=== PATIENT | male | born 1950 | race Caucasian/White ===

== ENCOUNTER 2023-08-02 14:35 | Emergency (ER) | payer MEDICARE ==
--- NOTE | 2023-08-02 15:20 | ED ---
Fall HPI - General Source: patient, family, RN notes reviewed Mode of arrival: wheelchair <Lashonda Singh - Last Filed: 08/02/23 15:16> - General Source: patient, RN notes reviewed Limitations: no limitations <Givoanny Gatica - Last Filed: 08/02/23 18:20> - General Chief Complaint: Fall Stated Complaint: fall Time Seen by Provider: 08/02/23 15:19 - History of Present Illness Initial Comments: Patient is 72-year-old male presented ER with chief complaint of a fall. Patient states he stood up from his couch and his legs gave out he states he hit the TV stand. Patient denies any head injury, loss of consciousness, blood thinner use. (Lashonda Singh) Patient is a pleasant 9-year-old male presenting to the emergency department following a fall. Incident occurred 2 days ago. Patient states he tripped and hit a TV stand. Patient has discomfort left ribs and left abdomen/flank region. No dyspnea. Patient also hurt his forearms and is worried about bruising of his forearms. (Giovanny Gatica) - Related Data Previous Rx's Medication Instructions Recorded Ketorolac [Toradol] 10 mg PO Q6HR PRN #15 tab 08/02/23 Allergies Allergy/AdvReac Type Severity Reaction Status Date / Time Penicillins AdvReac Unknown Verified 08/02/23 14:46 Childhood Review of Systems ROS Other: All systems not noted in ROS Statement are negative. <Lashonda Singh - Last Filed: 08/02/23 15:16> ROS Other: All systems not noted in ROS Statement are negative. Constitutional: Denies: fever Eyes: Denies: eye pain ENT: Denies: ear pain Respiratory: Denies: cough, dyspnea Gastrointestinal: Reports: as per HPI <Giovanny Gatica - Last Filed: 08/02/23 18:20> ROS Statement: Those systems with pertinent positive or pertinent negative responses have been documented in the HPI. Past Medical History Additional Past Medical History / Comment(s): chronic pain Past Surgical History: Heart Catheterization With Stent, Joint Replacement Smoking Status: Former smoker Past Alcohol Use History: None Reported Past Drug Use History: None Reported <Lashonda Singh - Last Filed: 08/02/23 15:16> General Exam Limitations: no limitations <Lashonda Singh - Last Filed: 08/02/23 15:16> Limitations: no limitations General appearance: alert, in no apparent distress Head exam: Present: atraumatic, normocephalic Eye exam: Present: normal appearance, PERRL Neck exam: Present: normal inspection. Absent: tenderness Respiratory exam: Present: wheezes (Patient states history of COPD), chest wall tenderness (Left lower lateral) Cardiovascular Exam: Present: regular rate, normal rhythm GI/Abdominal exam: Present: soft, tenderness (Mild tenderness left upper abdomen). Absent: distended Extremities exam: Present: normal inspection, full ROM. Absent: tenderness (No bony tenderness) Back exam: Present: tenderness (Left lateral flank). Absent: vertebral tenderness Neurological exam: Present: alert Psychiatric exam: Present: normal affect, normal mood Skin exam: Present: other (Ecchymosis left flank) <Giovanny Gatica - Last Filed: 08/02/23 18:20> - General Exam Comments Initial Comments: Visual Physical Exam Vital signs reviewed General: Well-appearing, nontoxic, no acute distress. Head: Normocephalic, atraumatic Eyes: PERRLA, EOMI ENT: Airway patent Chest: Nonlabored breathing Skin: No visual rash, normal skin tone, multiple contusions noted on bilateral upper extremities and left flank Neuro: Alert and oriented 3 Musculoskeletal: No gross abnormalities (Lashonda Singh) Course Vital Signs 08/02/23 14:42 Temperature 97.3 F L Pulse Rate 78 Respiratory 20 Rate Blood Pressure 112/78 O2 Sat by Pulse 92 L Oximetry Medical Decision Making <Lashonda Singh - Last Filed: 08/02/23 15:16> - Lab Data Result diagrams: 08/02/23 15:52 08/02/23 15:52 <Giovanny Gatica - Last Filed: 08/02/23 18:20> - Medical Decision Making I performed the quick note portion of the exam. Electronically signed by Lashonda Singh PA-C (Lashonda Singh) Was pt. sent in by a medical professional or institution ([facility], [employer] TECHNICIAN, urgent care, hospital, or jail...) When possible be specific @ -[No] Did you speak to anyone other than the patient for history (EMS, parent, family, police, friend...)? What history was obtained from this source @ -Family is present and helps provide history including incidental fall Did you review nursing and triage notes (agree or disagree)? Why? @ -[I reviewed and agree with nursing and triage notes] Were old charts reviewed (outside hosp., previous admission, EMS record, old EKG, old radiological studies, urgent care reports/EKG's, jail records)? Report findings @ -[No old charts were reviewed] Differential Diagnosis (chest pain, altered mental status, abdominal pain women, abdominal pain men, vaginal bleeding, weakness, fever, dyspnea, syncope, headache, dizziness, GI bleed, back pain, seizure, CVA, palpatations, mental health, musculoskeletal)? @ -Differential Musculoskeletal Muscular strain, contusion, ligament sprain, fracture, arthritis, septic arthritis, bursitis, cellulitis, muscle spasm, nerve compression, DVT, arterial occlusion, herpes zoster, electrolyte abnormality, tumor.... This is not meant to be in all inclusive list EKG interpreted by me (3pts min.). @ -[As above] X-rays interpreted by me (1pt min.). @ -Left rib and chest x-ray shows rib fractures left 5 through 8 no evidence of pneumothorax. CT interpreted by me (1pt min.). @ -CT abdomen and pelvis shows left rib fractures and tiny pneumothorax. Questionable pubic rami U/S interpreted by me (1pt. min.). @ -[None done] What testing was considered but not performed or refused? (CT, X-rays, U/S, labs)? Why? @ -[None] What meds were considered but not given or refused? Why? @ -[None] Did you discuss the management of the patient with other professionals (professionals i.e. , PA, [employer] TECHNICIAN, lab, RT, psych nurse, social services technician, network systems consultant, teacher, combatant diver officer, insurance case manager)? Give summary @ -Case was discussed with trauma surgeon Dr. Coronel who states patient can be discharged pain is controlled and follow-up. Was smoking cessation discussed for >3mins.? @ -[No] Was critical care preformed (if so, how long)? @ -[No] Were there social determinants of health that impacted care today? How? (Homelessness, low income, unemployed, alcoholism, drug addiction, tra nsportation, low edu. Level, literacy, decrease access to med. care, alf, rehab)? @ -[No] Was there de-escalation of care discussed even if they declined (Discuss DNR or withdrawal of care, Hospice)? DNR status @ -[No] What co-morbidities impacted this encounter? (DM, HTN, Smoking, COPD, CAD, Cancer, CVA, ARF, Chemo, Hep., AIDS, mental health diagnosis, sleep apnea, morbid obesity)? @ -[None] Was patient admitted / discharged? Hospital course, mention meds given and route, prescriptions, significant lab abnormalities, going to OR and other pertinent info. @ -Patient reevaluated and feeling much better. Patient is updated on results and plan. Patient is comfortable with discharge home. Undiagnosed new problem with uncertain prognosis? @ -[No] Drug Therapy requiring intensive monitoring for toxicity (Heparin, Nitro, Insulin, Cardizem)? @ -[No] Were any procedures done? @ -[No] Diagnosis/symptom? @ -Rib fractures, pneumothorax Acute, or Chronic, or Acute on Chronic? @ -Acute, acute Uncomplicated (without systemic symptoms) or Complicated (systemic symptoms)? @ -Rib fractures or complicated with a pneumothorax Side effects of treatment? @ -[No] Exacerbation, Progression, or Severe Exacerbation? @ -[No] Poses a threat to life or bodily function? How? (Chest pain, [place], [place], pneumonia, PE, COPD, DKA, ARF, appy, cholecystitis, CVA, Diverticulitis, Homicidal, Suicidal, threat to staff... and all critical care pts) @ -[No] (Giovanny Gatica) - Lab Data Lab Results 08/02/23 08/02/23 08/02/23 Range/Units 15:52 15:52 15:52 WBC 13.7 H (3.8-10.6) k/uL RBC 4.54 (4.30-5.90) m/uL Hgb 14.7 (13.0-17.5) gm/dL Hct 44.6 (39.0-53.0) % MCV 98.0 (80.0-100.0) fL MCH 32.4 (25.0-35.0) pg MCHC 33.0 (31.0-37.0) g/dL RDW 14.4 (11.5-15.5) % Plt Count 122 L (150-450) k/uL MPV 8.5 Neutrophils % 86 % Lymphocytes % 7 % Monocytes % 5 % Eosinophils % 1 % Basophils % 0 % Neutrophils # 11.7 H (1.3-7.7) k/uL Lymphocytes # 1.0 (1.0-4.8) k/uL Monocytes # 0.7 (0-1.0) k/uL Eosinophils # 0.1 (0-0.7) k/uL Basophils # 0.0 (0-0.2) k/uL PT 11.1 (10.0-12.5) sec INR 1.0 (<1.2) APTT 25.3 (22.0-30.0) sec Sodium 133 L (137-145) mmol/L Potassium 3.6 (3.5-5.1) mmol/L Chloride 91 L (98-107) mmol/L Carbon Dioxide 31 H (22-30) mmol/L Anion Gap 11 mmol/L BUN 36 H (9-20) mg/dL Creatinine 0.84 (0.66-1.25) mg/dL Est GFR (CKD-EPI)AfAm >90 (>60 ml/min/1.73 sqM) Est GFR (CKD-EPI)NonAf 89 (>60 ml/min/1.73 sqM) Glucose 110 H (74-99) mg/dL Calcium 9.1 (8.4-10.2) mg/dL Total Bilirubin 1.1 (0.2-1.3) mg/dL AST 33 (17-59) U/L ALT 14 (4-49) U/L Alkaline Phosphatase 80 (38-126) U/L Total Protein 7.8 (6.3-8.2) g/dL Albumin 4.3 (3.5-5.0) g/dL Amylase 43 (30-110) U/L Lipase 51 (23-300) U/L Disposition <Lashonda Singh - Last Filed: 08/02/23 15:16> Is patient prescribed a controlled substance at d/c from ED?: No Time of Disposition: 18:19 <Giovanny Gatica - Last Filed: 08/02/23 18:20> Clinical Impression: Rib fractures, Pneumothorax Disposition: HOME SELF-CARE Condition: Stable Instructions (If sedation given, give patient instructions): Rib Fracture (ED), Traumatic Pneumothorax (ED) Additional Instructions: Prescription sent to pharmacy. Please do follow-up with primary care physician and trauma surgeon Dr. Coronel in the next day or 2 for recheck. Return for any difficulty in breathing, increased pain, worsening symptoms or other concerns. Prescriptions: Ketorolac [Toradol] 10 mg PO Q6HR PRN #15 tab PRN Reason: Pain Referrals: Betito Zhang DO [Primary Care Provider] - 1-2 days Jasmyn Quinn MD [STAFF PHYSICIAN] - 1-2 days
[2023-08-02] MEDS ORDERED: MORPHINE SULFATE 4 MG/ML SYRINGE IVP STA (15:45)
[2023-08-02 16:04] LABS: Basophils % (A) 0 %; Eosinophils # (A) 0.1 k/uL (0-0.7); Eosinophils % (A) 1 %; HCT 44.6 % (39.0-53.0); HGB 14.7 gm/dL (13.0-17.5); Lymphocytes % (A) 7 %; MCH 32.4 pg (25.0-35.0); Mean Platelet Volume 8.5; Monocytes # (A) 0.7 k/uL (0-1.0); Monocytes % (A) 5 %; Neutrophils # (A) 11.7 k/uL (1.3-7.7); Neutrophils % (A) 86 %; Platelet Count 122 k/uL (150-450); RBC 4.54 m/uL (4.30-5.90); RDW 14.4 % (11.5-15.5); WBC 13.7 k/uL (3.8-10.6)
[2023-08-02 16:12] LABS: ALT 14 U/L (4-49); AST 33 U/L (17-59); African American GFR (CKD) >90 (>60 ml/min/1.73 sqM); Albumin 4.3 g/dL (3.5-5.0); Alkaline Phosphatase 80 U/L (38-126); Amylase 43 U/L (30-110); Anion Gap 11 mmol/L; Blood Urea Nitrogen 36 mg/dL (9-20); Calcium 9.1 mg/dL (8.4-10.2); Carbon Dioxide 31 mmol/L (22-30); Chloride 91 mmol/L (98-107); Glucose 110 mg/dL (74-99); Lipase 51 U/L (23-300); Non-African American GFR(CKD) 89 (>60 ml/min/1.73 sqM); Potassium 3.6 mmol/L (3.5-5.1); Sodium 133 mmol/L (137-145); Total Bilirubin 1.1 mg/dL (0.2-1.3); Total Protein 7.8 g/dL (6.3-8.2)
[2023-08-02 16:16] LABS: Partial Thromboplastin Time 25.3 sec (22.0-30.0); Prothrombin Time 11.1 sec (10.0-12.5)
--- NOTE | 2023-08-02 17:20 | XR ---
EXAMINATION TYPE: XR ribs LT w pa chest xray DATE OF EXAM: 08/02/2023 COMPARISON: None HISTORY: Fall, pain TECHNIQUE: Left RIBS 2 views supplemented with a frontal chest FINDINGS: There appears to be chronic elevation of the left diaphragm. Family displaced rib fractures along the posterior lateral fifth, sixth, seventh ribs. Anterior seven th and eighth rib fractures are evident. No pneumothorax is evident. IMPRESSION: 1. Fractures of the ribs. No pneumothorax identified
--- NOTE | 2023-08-02 18:03 | CT ---
EXAMINATION TYPE: CT abdomen pelvis w con DATE OF EXAM: 08/02/2023 COMPARISON: None INDICATION: left sided abdominal pain following fall. DLP: 572.3 mGycm, Automated exposure control for dose reduction was used. CONTRAST: 100ml mL of Isovue 300. Study performed without Oral Contrast TECHNIQUE: Axial images were obtained from above the diaphragm to the pubic rami in the axial plane a t 5 mm thick sections. Reconstructed images are reviewed on the computer in the coronal plane. FINDINGS: Limited CT sections are obtained the lung bases. There is a small pneumothorax. There is elevation o f the left diaphragm with loops of bowel present.. 6, 7 and eighth lateral to anterior rib fractures are evident at the level of pneumothorax. CT ABDOMEN: No pneumoperitoneum. Liver: Normal Spleen: Normal Pancreas: Normal no laceration evident. Adrenal glands: The adrenal glands are normal. Gallbladder: Normal Kidneys: No masses are evident. No hydronephrosis is present. No cysts are present. Delayed images were obtained through the kidneys, which remain unremarkable. Aorta: Vascular calcification is within the aorta. There is a prior aortic aneurysm. Aortoiliac sten ting is evident. 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 Inferior vena cava: Normal. CT PELVIS: Right hip prosthesis is present. A fracture of the lateral pubic ramus, example image 201 image 74 Loops of bowel within the abdomen and pelvis are normal. There are some fluid-filled small bowel loop s within the pelvis. There are loops of bowel which are incompletely distended or lack oral contra st limiting their evaluation. Appendix: Normal as visualized Urinary bladder: Normal. Genitourinary structures: Prostate is poorly visualized due to beam hardening artifact from the right hip prosthesis Osseous structures: No suspicious lytic or sclerotic lesions. Fracture of the posterior lateral right pubic ramus and left sixth through eighth rib fractures discussed above. IMPRESSION: 1. Left rib fractures 6 7 and a the with a small pneumothorax adjacent.. Report was called to the ER by Dr. Lo at the time of interpretation. 2. No acute intra-abdominal changes. 3. Fracture of the posterior lateral right pubic ramus
[2023-08-02] MEDS ORDERED: ACET/COD 300 MG/30 MG STARTER PACK 6 TAB BTL PO STA (18:15)
[2023-08-02 18:28] VITALS: BP 119/72; PULSE 61; RESP 16; TEMP 97.4
== END 2023-08-02 19:24 | disposition home or self-care (01) ==
LOC: EC 14:35
DX: S22.42XA Multiple fractures of ribs, left side, initial encounter for closed fracture (principal); S27.0XXA Traumatic pneumothorax, initial encounter; Z88.0 Allergy status to penicillin; Z87.891 Personal history of nicotine dependence; W18.09XA Striking against other object with subsequent fall, initial encounter
CPT/HCPCS: 36415; 80053; 82150; 83690; 85025; 85610; 85730; 71101; 74177; 99284; 96374; J2270; Q9967

== ENCOUNTER 2024-02-10 12:47 | Inpatient (IN) | payer MEDICARE ==
--- NOTE | 2024-02-10 13:04 | ED ---
General Adult HPI - General Stated complaint: hypotension Time Seen by Provider: 02/10/24 12:49 - History of Present Illness Initial comments: Dictation was produced using [employer] dictation software. please excuse any grammatical, word or spelling errors. Chief Complaint: 73-year-old male with past medical history of lung cancer presents with abdominal pain History of Present Illness: Patient 73-year-old male presents to the emergency department with abdominal pain. Patient states he has had abdominal pain for the last 2 to 3 days. Has not had a bowel movement approximately 4 days. States the pain is localized to his supraumbilical epigastric area. Nonradiating. Not associated with chest pain. No diaphoresis. No nausea. Denies any fever, chills or night sweats. He has history of lung cancer. Brought in by EMS. EMS states that his oxygen was slightly low and he was given a breathing treatment improvement. He wears home O2. Patient denies any acute dyspnea outside of his baseline dyspnea. Patient also allegedly had slightly lo w blood pressure was given IV fluids with improvement. The ROS documented in this emergency department record has been reviewed and confirmed by me. Those systems with pertinent positive or negative responses have been documented in the HPI. All other systems are other negative and/or noncontributory. - Related Data Home Medications Medication Instructions Recorded Confirmed Albuterol Sulfate [Albuterol 1 puff PO RT-Q4H PRN 02/10/24 02/10/24 Sulfate Hfa] Fluticasone/Umeclidin/Vilanter 1 puff INHALATION RT-DAILY 02/10/24 02/10/24 [Trelegy Ellipta 200-62.5-25] Furosemide [Lasix] 20 mg PO BID 02/10/24 02/10/24 Gabapentin 600 mg PO TID 02/10/24 02/10/24 HYDROcodone/APAP 7.5-325MG [[place] 1 tab PO Q6HR PRN 02/10/24 02/10/24 7.5-325] Pantoprazole [Protonix] 40 mg PO DAILY 02/10/24 02/10/24 QUEtiapine [SEROquel] 25 mg PO HS 02/10/24 02/10/24 Sertraline [Zoloft] 50 mg PO DAILY 07/22/24 07/22/24 Allergies Allergy/AdvReac Type Severity Reaction Status Date / Time Penicillins AdvReac Unknown Verified 02/10/24 13:04 Childhood Review of Systems ROS Statement: Those systems with pertinent positive or pertinent negative responses have been documented in the HPI. ROS Other: All systems not noted in ROS Statement are negative. Past Medical History Additional Past Medical History / Comment(s): chronic pain Past Surgical History: Heart Catheterization With Stent, Joint Replacement Smoking Status: Former smoker Past Alcohol Use History: None Reported Past Drug Use History: None Reported General Exam - General Exam Comments Initial Comments: PHYSICAL EXAM: General Impression: Alert and oriented x3, not in acute distress HEENT: Normocephalic atraumatic, extra-ocular movements intact, pupils equal and reactive to light bilaterally, mucous membranes moist. Cardiovascular: Heart regular rate and rhythm Chest: Able to complete full sentences, no retractions, no tachypnea Abdomen: abdomen soft, tenderness to the supraumbilical epigastrium, distention of the abdomen, no organomegaly Musculoskeletal: Pulses present and equal in all extremities, no peripheral edema Motor: no focal deficits noted Neurological: CN II-XII grossly intact, no focal motor or sensory deficits noted Skin: Intact with no visualized rashes Psych: Normal affect and mood Course Vital Signs 02/10/24 02/10/24 02/10/24 12:49 13:27 14:25 Temperature 98.7 F 98.1 F Pulse Rate 100 100 97 Respiratory 20 18 20 Rate Blood Pressure 76/61 86/67 98/76 O2 Sat by Pulse 88 L 92 L 88 L Oximetry - Reevaluation(s) Reevaluation #1: 02/10/24 13:05 EKG showed concerning findings for cardiac ischemia. There is no old EKG for comparison. At the bedside patient does not have any ACS type symptoms. He has reproducible palpatory abdominal tenderness to his mid abdomen. Reevaluation #2: 02/10/24 14:12 Initial page out to cardiology was at 1:10 PM. I did get in touch with cardiology at 152. He did come down immediately to evaluate the patient. Dr. Martinez evaluated the patient and recommended that patient be taken to the [facility] if his CT is unremarkable. Reevaluation #3: 02/10/24 14:33 CT of the abdomen pelvis was reviewed along with cardiology at approximately 2:20 PM. Radiologist said that there is significant Case was discussed with radiologist.bowel obstruction. I did revisit the case with Dr. Martinez at approximately 2:25 PM states that patient not a good candidate for cardiac cath eterization at this time and that he does not have any active ACS symptoms at the bedside. They will delay catheterization in the meantime. Stat echocardiogram ordered. Patient given heparin, aspirin and started on antibiotics for questionable bilateral lower lobe pneumonia. Reevaluation #4: 02/10/24 15:04 Case discussed with general surgery, Dr. Vu requested NG tube be placed and that STEMI will take precedence over any sort of abdominal surgery. EKG Findings - EKG Comments: EKG Findings:: My EKG interpretation: Ventricular rate 110, sinus tachycardia, right bundle branch block,. 134, cures 122, QTc 407. ST elevations in the septal precordial leads and inferior leads. No obvious reciprocal depressions.. No OK prolongation, no QTC prolongation. Medical Decision Making - Medical Decision Making Was pt. sent in by a medical professional or institution (, PA, CERTIFIED SCRUB TECH, urgent care, hospital, or snf...) When possible be specific @ -yes Did you speak to anyone other than the patient for history (EMS, parent, family, police, friend...)? What history was obtained from this source @ -Case discussed with EMS as described above Did you review nursing and triage notes (agree or disagree)? Why? @ -I reviewed and agree with nursing and triage notes Were old charts reviewed (outside hosp., previous admission, EMS record, old EKG, old radiological studies, urgent care reports/EKG's, snf records)? Report findings @ -No old charts were reviewed Differential Diagnosis (chest pain, altered mental status, abdominal pain women, abdominal pain men, vaginal bleeding, musculoskeletal, weakness, fever, dyspnea, syncope, headache, dizziness, GI bleed, back pain, seizure, CVA, pal patations, mental health)? @ -Differential Abdominal Pain Men: Appendicitis, cholecystitis, diverticulosis, ischemic bowel, pancreatitis, hepatitis, UTI, gastroenteritis, AAA, incarcerated hernia, bowel obstruction, constipation, inflammatory bowel, hepatitis, peptic ulcer disease, splenic infarction, perforated viscus, testicular torsion, this is not meant to be an all-inclusive list EKG interpreted by me (3pts min.). @ -See above. No EKG for comparison. EKG consistent with ST segment elevation IN X-rays interpreted by me (1pt min.). @ -None done CT interpreted by me (1pt min.). @ -CT scan of the abdomen pelvis shows bowel obstruction and possible bilateral lower lobe pneumonia. U/S interpreted by me (1pt. min.). @ -None done What testing was considered but not performed or refused? (CT, X-rays, U/S, labs)? Why? @ -None What meds were considered but not given or refused? Why? @ -None Was smoking cessation discussed for >3mins.? @ -No Were there social determinants of health that impacted care today? How? (Homelessness, low income, unemployed, alcoholism, drug addiction, transportation, low edu. Level, literacy, decrease access to med. care, nursing home, rehab)? @ -No Was there de-escalation of care discussed even if they declined (Discuss DNR or withdrawal of care, Hospice)? DNR status @ -No What co-morbidities impacted this encounter? (DM, HTN, Smoking, COPD, CAD, Canc er, CVA, ARF, Chemo, Hep., AIDS, mental health diagnosis, sleep apnea, morbid obesity)? @ -Lung cancer, vascular disease Was patient admitted / discharged? Hospital course, mention meds given and rou te, prescriptions, significant lab abnormalities, going to OR and other pertinent info. @ -73-year-old male with chief complaint of abdominal pain. He arrived via EMS from home. Patient denies any ACS type symptoms. He has reproducible palpatory abdominal pain. His abdomen is distended. EKG shows findings concerning for ST segment elevation IN. Vital signs show soft blood pressure initially 76/61 however improved with IV fluids to 98/76. Laboratory evaluation obtained. No leukocytosis. Hemoglobin 11.9. Coag panel is normal. Metabolic panel shows hyponatremia 129. Troponin is elevated to 56.8. Case was discussed with cardiology as described above. Pending discussion with general surgery. Patient be admitted to the ICU for intensive care monitoring. Patient given aspirin, antibiotics and heparin. Echocardiogram ordered. Did you discuss the management of the patient with other professionals (professionals i.e. , PA, CERTIFIED SCRUB TECH, lab, RT, psych nurse, social media intern, chief of vital statistics, t eacher, navy airspace officer, behavioral health case manager)? Give summary @ -See above Was critical care preformed (if so, how long)? @ -Yes, 77 minutes Undiagnosed new problem with uncertain prognosis? @ -No Drug Therapy requiring intensive monitoring for toxicity (Heparin, Nitro, Insulin, Cardizem)? @ -No Were any procedures done? @ -No Diagnosis/symptom? Acute, or Chronic, or Acute on Chronic? Uncomplicated ( without systemic symptoms) or Complicated (systemic symptoms)? @ -ST segment elevation IN, bowel obstruction Side effects of treatment? @ -No Exacerbation, Progression, or Severe Exacerbation? @ -No Poses a threat to life or bodily function? How? (Chest pain, USA, IN, pneumonia, PE, COPD, DKA, ARF, appy, cholecystitis, CVA, Diverticulitis, Homicidal, Suicidal, threat to staff... and all critical care pts) @ -yes - Lab Data Result diagrams: 02/10/24 13:17 02/10/24 13:17 Lab Results 02/10/24 02/10/24 02/10/24 Range/Units 13:17 13:17 13:17 WBC 7.0 (3.8-10.6) k/uL RBC 3.73 L (4.30-5.90) m/uL Hgb 11.9 L (13.0-17.5) gm/dL Hct 37.0 L (39.0-53.0) % MCV 99.3 (80.0-100.0) fL MCH 32.0 (25.0-35.0) pg MCHC 32.2 (31.0-37.0) g/dL RDW 17.6 H (11.5-15.5) % Plt Count 560 H (150-450) k/uL MPV 7.2 Neutrophils % 84 % Lymphocytes % 6 % Monocytes % 9 % Eosinophils % 0 % Basophils % 0 % Neutrophils # 5.9 (1.3-7.7) k/uL Lymphocytes # 0.4 L (1.0-4.8) k/uL Monocytes # 0.6 (0-1.0) k/uL Eosinophils # 0.0 (0-0.7) k/uL Basophils # 0.0 (0-0.2) k/uL Hypochromasia Slight Anisocytosis Slight Macrocytosis Slight PT (10.0-12.5) sec INR (<1.2) APTT (22.0-30.0) sec Sodium 129 L (137-145) mmol/L Potassium 5.5 H (3.5-5.1) mmol/L Chloride 89 L (98-107) mmol/L Carbon Dioxide 36 H (22-30) mmol/L Anion Gap 4 mmol/L BUN 48 H (9-20) mg/dL Creatinine 1.18 (0.66-1.25) mg/dL Est GFR (CKD-EPI)AfAm 71 (>60 ml/min/1.73 sqM) Est GFR (CKD-EPI)NonAf 62 (>60 ml/min/1.73 sqM) Glucose 152 H (74-99) mg/dL Calcium 9.1 (8.4-10.2) mg/dL Total Bilirubin 1.0 (0.2-1.3) mg/dL AST 128 H (17-59) U/L ALT 39 (4-49) U/L Alkaline Phosphatase 71 (38-126) U/L Troponin I 56.800 H* (0.000-0.034) ng/mL Total Protein 6.0 L (6.3-8.2) g/dL Albumin 3.4 L (3.5-5.0) g/dL Lipase 104 (23-300) U/L 02/10/24 Range/Units 13:17 WBC (3.8-10.6) k/uL RBC (4.30-5.90) m/uL Hgb (13.0-17.5) gm/dL Hct (39.0-53.0) % MCV (80.0-100.0) fL MCH (25.0-35.0) pg MCHC (31.0-37.0) g/dL RDW (11.5-15.5) % Plt Count (150-450) k/uL MPV Neutrophils % % Lymphocytes % % Monocytes % % Eosinophils % % Basophils % % Neutrophils # (1.3-7.7) k/uL Lymphocytes # (1.0-4.8) k/uL Monocytes # (0-1.0) k/uL Eosinophils # (0-0.7) k/uL Basophils # (0-0.2) k/uL Hypochromasia Anisocytosis Macrocytosis PT 11.6 (10.0-12.5) sec INR 1.1 (<1.2) APTT 23.7 (22.0-30.0) sec Sodium (137-145) mmol/L Potassium (3.5-5.1) mmol/L Chloride (98-107) mmol/L Carbon Dioxide (22-30) mmol/L Anion Gap mmol/L BUN (9-20) mg/dL Creatinine (0.66-1.25) mg/dL Est GFR (CKD-EPI)AfAm (>60 ml/min/1.73 sqM) Est GFR (CKD-EPI)NonAf (>60 ml/min/1.73 sqM) Glucose (74-99) mg/dL Calcium (8.4-10.2) mg/dL Total Bilirubin (0.2-1.3) mg/dL AST (17-59) U/L ALT (4-49) U/L Alkaline Phosphatase (38-126) U/L Troponin I (0.000-0.034) ng/mL Total Protein (6.3-8.2) g/dL Albumin (3.5-5.0) g/dL Lipase (23-300) U/L Disposition Clinical Impression: STEMI (ST elevation myocardial infarction), Bowel obstruction Disposition: ADMITTED IP TO THIS [facility] Condition: Critical Decision Time: 14:45
[2024-02-10] MEDS: SODIUM CHLORIDE 0.9% 500 ML 500 ML IV STA (13:23)
[2024-02-10] MEDS: fentaNYL (PF) 50 MCG/ML 2 ML AMP IVP STA ×2 (13:24→15:10)
[2024-02-10 13:36] LABS: ALT 39 U/L (4-49); AST 128 U/L (17-59); African American GFR (CKD) 71 (>60 ml/min/1.73 sqM); Albumin 3.4 g/dL (3.5-5.0); Alkaline Phosphatase 71 U/L (38-126); Anion Gap 4 mmol/L; Blood Urea Nitrogen 48 mg/dL (9-20); Calcium 9.1 mg/dL (8.4-10.2); Carbon Dioxide 36 mmol/L (22-30); Chloride 89 mmol/L (98-107); Glucose 152 mg/dL (74-99); Lipase 104 U/L (23-300); Non-African American GFR(CKD) 62 (>60 ml/min/1.73 sqM); Potassium 5.5 mmol/L (3.5-5.1); Sodium 129 mmol/L (137-145)
[2024-02-10 13:38] LABS: INR 1.1 (<1.2); Partial Thromboplastin Time 23.7 sec (22.0-30.0); Prothrombin Time 11.6 sec (10.0-12.5)
[2024-02-10 13:46] LABS: Anisocytosis Slight; Basophils % (A) 0 %; Eosinophils % (A) 0 %; HGB 11.9 gm/dL (13.0-17.5); Hypochromasia Slight; Lymphocytes # (A) 0.4 k/uL (1.0-4.8); Lymphocytes % (A) 6 %; MCHC 32.2 g/dL (31.0-37.0); MCV 99.3 fL (80.0-100.0); Macrocytosis Slight; Mean Platelet Volume 7.2; Monocytes # (A) 0.6 k/uL (0-1.0); Monocytes % (A) 9 %; Neutrophils # (A) 5.9 k/uL (1.3-7.7); Neutrophils % (A) 84 %; Platelet Count 560 k/uL (150-450); RBC 3.73 m/uL (4.30-5.90); RDW 17.6 % (11.5-15.5)
[2024-02-10] MEDS ORDERED: HEPARIN SODIUM 1,000 UN/ML (10ML VL) IV PRN (14:13)
--- NOTE | 2024-02-10 14:31 | CT ---
EXAMINATION TYPE: CT abdomen pelvis w con DATE OF EXAM: 02/10/2024 COMPARISON: 08/02/2023 HISTORY: Abdominal pain CT DLP: 1032.5 mGycm Automated exposure control for dose reduction was used. TECHNIQUE: Helical acquisition of images was performed from the lung bases through the pelvis. CONTRAST: Performed without Oral Contrast and with IV Contrast, patient injected with 100 ml mL of Isovue 300. FINDINGS: There are bilateral lower lobes partially consolidated opacities with tiny right pleural effusion and [id number] left pleural effusion. There are no gallstones, wall thickening or pericholecystic fluid. There is no biliary ductal dilatat ion. There is no focal mass or organomegaly involving the liver, pancreas, spleen limits. The pancreas is moderately atrophic. There is no solid renal mass or hydronephrosis and there is homogeneous contrast enhancement of the r enal parenchyma. There is an aortic stent graft with no evidence of an endoleak. The stomach and small bowel loops are markedly dilated throughout the abdomen consistent with a dista l small bowel obstruction, etiology and transition point is uncertain but appears to be in the dista l right lower quadrant. There is no free intraperitoneal air or fluid. There is no free intraperitoneal air or fluid. There is no definite pelvic mass or adenopathy. There is artifact from right hip prosthesis. There porter s been prior fixation of right hemipelvis fractures. IMPRESSION: 1. Bilateral lower lobe airspace infiltrates and pleural effusion as described above, left greater th an right. 2. Marked distal small bowel obstruction
[2024-02-10] MEDS ORDERED: NALOXONE 0.4 MG/ML 1 ML VIAL IV PRN (14:41)
[2024-02-10] MEDS: CEFEPIME 2 GM in SODIUM CHLORIDE 0.9% 100 ML IVPB STA (14:42)
[2024-02-10] MEDS: ASPIRIN 81 MG PO STA (15:29)
[2024-02-10] MEDS: HEPARIN SOD,PORK IN 0.45% NACL 25,000 UNIT in 0.45% NACL 1 250ML.BAG IV SCH (15:31)
[2024-02-10] MEDS: HEPARIN SODIUM 1,000 UN/ML (10ML VL) IV ONE (15:34)
[2024-02-10] MEDS: SODIUM CHLORIDE 0.9% 1,000 ML IV STA (15:35)
--- NOTE | 2024-02-10 16:08 | P.GSCN ---
History of Present Illness Consult date: 02/10/24 History of present illness: CHIEF COMPLAINT: Abdominal pain HISTORY OF PRESENT ILLNESS: This is a 73-year-old male who presented the hospital with complaints of abdominal pain for about 2 to 3 days. He has had no bowel movement for 4 days. No nausea or vomiting reported. He does have abdominal distention. He does have a known history of coronary artery disease with cardiac stents and is on home oxygen. Patient had a CT scan abdomen and pelvis that reported marked distal small bowel obstruction. Patient also has elevated troponin and is currently on IV heparin drip. Followed by cardiology. Patient seen and examined with Dr. Vu PAST MEDICAL HISTORY: Coronary disease, chronic pain PAST SURGICAL HISTORY: Heart catheterization with stent, joint replacement MEDICATIONS: See below ALLERGIES: See below SOCIAL HISTORY: No illicit drug use. None reported REVIEW OF SYSTEMS: CONSTITUTIONAL: Denies fever or chills. HEENT: Denies blurred vision, vision changes, or eye pain. Denies hemoptysis CARDIOVASCULAR: Denies chest pain or pressure. RESPIRATORY: No shortness of breath. GASTROINTESTINAL: See HPI for pertinent findings HEMATOLOGIC: Denies bleeding disorders. GENITOURINARY: Denies any blood in urine or increased urinary frequency. SKIN: Denies pruitis. Denies rash. PHYSICAL EXAM: VITAL SIGNS: Reviewed GENERAL: Malnourished. No acute distress. HEENT: No sclera icterus. Extraocular movements grossly intact. Moist buccal mucosa. Head is atraumatic, normocephalic. No nasal drainage. ABDOMEN: Distended. Diffuse tenderness NEUROLOGIC: Alert and oriented. Cranial nerves II through XII grossly intact. LABORATORY DATA: WBC 7.0 Hgb 11.9 platelets 560 INR 1.1 Sodium 129 potassium is 5.5 creatinine 1.18 Troponin 56 Albumin 3.4 IMAGING: CT scan abdomen pelvis reports bilateral lower lobe airspace infiltrates and pleural effusion left greater than right. Marked distal small bowel obstruction. Stomach and small bowel loops are markedly dilated throughout the abdomen consistent with a distal small bowel obstruction. Transition point is uncertain but appears to be in the distal right lower quadrant. ASSESSMENT: 1. Small bowel obstruction with acute gastric distention 2. Elevated troponin 3. Hyponatremia and hyperkalemia PLAN: -Place NG tube for decompression -Keep patient n.p.o. -Recommend correction of electrolytes -Recommend cardiac eval for elevated troponin. Dr. Vu did discuss case with cardiology -May need surgical intervention for bowel obstruction later. No acute or emergent need for surgery for small bowel obstruction at this time Thank you for this consultation Physician In Store Marketer note has been reviewed by physician. Signing provider agrees with the documented findings, assessment, and plan of care. Past Medical History Additional Past Medical History / Comment(s): chronic pain Past Surgical History: Heart Catheterization With Stent, Joint Replacement Smoking Status: Former smoker Past Alcohol Use History: None Reported Past Drug Use History: None Reported Medications and Allergies Home Medications Medication Instructions Recorded Confirmed Type Albuterol Sulfate [Albuterol 1 puff PO RT-Q4H PRN 02/10/24 02/10/24 History Sulfate Hfa] Fluticasone/Umeclidin/Vilanter 1 puff INHALATION RT-DAILY 02/10/24 02/10/24 History [Trelegy Ellipta 200-62.5-25] Furosemide [Lasix] 20 mg PO BID 02/10/24 02/10/24 History Gabapentin 600 mg PO TID 02/10/24 02/10/24 History HYDROcodone/APAP 7.5-325MG [[place] 1 tab PO Q6HR PRN 02/10/24 02/10/24 History 7.5-325] Pantoprazole [Protonix] 40 mg PO DAILY 02/10/24 02/10/24 History QUEtiapine [SEROquel] 25 mg PO HS 02/10/24 02/10/24 History Sertraline [Zoloft] 50 mg PO DAILY 02/10/24 02/10/24 History Allergies Allergy/AdvReac Type Severity Reaction Status Date / Time Penicillins AdvReac Unknown Verified 02/10/24 13:04 Childhood Surgical - Exam Vital Signs Temp Pulse Resp BP Pulse Ox 98.7 F 100 20 76/61 88 L 02/10/24 12:49 02/10/24 12:49 02/10/24 12:49 02/10/24 12:49 02/10/24 12:49 Results - Labs 02/10/24 13:17 02/10/24 13:17 Abnormal Lab Results - Last 24 Hours (Table) 02/10/24 02/10/24 02/10/24 Range/Units 13:17 13:17 13:17 RBC 3.73 L (4.30-5.90) m/uL Hgb 11.9 L (13.0-17.5) gm/dL Hct 37.0 L (39.0-53.0) % RDW 17.6 H (11.5-15.5) % Plt Count 560 H (150-450) k/uL Lymphocytes # 0.4 L (1.0-4.8) k/uL Sodium 129 L (137-145) mmol/L Potassium 5.5 H (3.5-5.1) mmol/L Chloride 89 L (98-107) mmol/L Carbon Dioxide 36 H (22-30) mmol/L BUN 48 H (9-20) mg/dL Glucose 152 H (74-99) mg/dL AST 128 H (17-59) U/L Troponin I 56.800 H* (0.000-0.034) ng/mL Total Protein 6.0 L (6.3-8.2) g/dL Albumin 3.4 L (3.5-5.0) g/dL Diabetes panel 02/10/24 Range/Units 13:17 Sodium 129 L (137-145) mmol/L Potassium 5.5 H (3.5-5.1) mmol/L Chloride 89 L (98-107) mmol/L Carbon Dioxide 36 H (22-30) mmol/L BUN 48 H (9-20) mg/dL Creatinine 1.18 (0.66-1.25) mg/dL Glucose 152 H (74-99) mg/dL Calcium 9.1 (8.4-10.2) mg/dL AST 128 H (17-59) U/L ALT 39 (4-49) U/L Alkaline Phosphatase 71 (38-126) U/L Total Protein 6.0 L (6.3-8.2) g/dL Albumin 3.4 L (3.5-5.0) g/dL Calcium panel 02/10/24 Range/Units 13:17 Calcium 9.1 (8.4-10.2) mg/dL Albumin 3.4 L (3.5-5.0) g/dL Pituitary panel 02/10/24 Range/Units 13:17 Sodium 129 L (137-145) mmol/L Potassium 5.5 H (3.5-5.1) mmol/L Chloride 89 L (98-107) mmol/L Carbon Dioxide 36 H (22-30) mmol/L BUN 48 H (9-20) mg/dL Creatinine 1.18 (0.66-1.25) mg/dL Glucose 152 H (74-99) mg/dL Calcium 9.1 (8.4-10.2) mg/dL Adrenal panel 02/10/24 Range/Units 13:17 Sodium 129 L (137-145) mmol/L Potassium 5.5 H (3.5-5.1) mmol/L Chloride 89 L (98-107) mmol/L Carbon Dioxide 36 H (22-30) mmol/L BUN 48 H (9-20) mg/dL Creatinine 1.18 (0.66-1.25) mg/dL Glucose 152 H (74-99) mg/dL Calcium 9.1 (8.4-10.2) mg/dL Total Bilirubin 1.0 (0.2-1.3) mg/dL AST 128 H (17-59) U/L ALT 39 (4-49) U/L Alkaline Phosphatase 71 (38-126) U/L Total Protein 6.0 L (6.3-8.2) g/dL Albumin 3.4 L (3.5-5.0) g/dL
[2024-02-10] MEDS: BENZOCAINE SPRAY 1 CAN MUCOUS MEM PRN (16:16)
[2024-02-10] MEDS: ASPIRIN 300 MG SUPP RECTAL ONE (16:21)
--- NOTE | 2024-02-10 16:25 | XR ---
EXAMINATION TYPE: XR chest 1V confirm line plcmt DATE OF EXAM: 02/10/2024 4:19 PM CLINICAL INDICATION:Male, 73 years old with history of NG tube placement; H COMPARISON: CT same day TECHNIQUE: XR chest 1V confirm line plcmt Frontal view of the chest. FINDINGS: Lungs/Pleura: There is no evidence of pleural effusion, focal consolidation, or pneumothorax. Pulmonary vascularity: Unremarkable. Heart/mediastinum: Cardiomediastinal silhouette is unremarkable. Musculoskeletal: No acute osseous pathology. Other findings: Gaseous distention of stomach and bowel in the upper abdomen. Lines/Tubes: Nasogastric tube with its distal tip and side-port projecting under the diaphragm. [id number]-[id number] projecting over the right hemithorax with distal tip at the cavoatrial junction. IMPRESSION: 1. Nasogastric tube in appropriate position. 2. Elevated left diaphragm with gaseous distention of bowel and colon.
--- NOTE | 2024-02-10 16:51 | CA ---
Transthoracic Echo Report Name: Milad Enciso Age: 73 Gender: M : 1950 Exam Date: 02/10/2024 14:50 Exam Location: [facility] Ht (in): 67 Wt (lb): 130 Ordering Physician: Ash Aguirre DO Attending/Referring Phys: [id number], Timothy Spindle Setter Niharika Germain, CHRISTINE Procedure CPT: Indications: stemi Cardiac Hx: limited study Technical Quality: Fair Contrast 1: Total Dose (mL): Contrast 2: Total Dose (mL): MEASUREMENTS (Male / Female) Normal Values 2D ECHO LV Diastolic Volume MOD BP 71.2 cm??? 67 - 155 / 56 - 104 cm??? LV Systolic Volume MOD BP 50.4 cm??? 22 - 58 / 19 - 49 cm??? LV Ejection Fraction MOD BP 29.3 % >= 55 % LV Cardiac Index MOD BP 1276.1 cm???/min???m??? LV Diastolic Volume MOD 4C 82.0 cm??? LV Systolic Volume MOD 4C 55.0 cm??? LV Ejection Fraction MOD 4C 32.9 % LV Cardiac Index MOD 4C 1652.0 cm???/min???m??? LV Diastolic Length 4C 8.9 cm LV Systolic Length 4C 8.8 cm LV Diastolic Volume MOD 2C 56.9 cm??? LV Systolic Volume MOD 2C 39.5 cm??? LV Ejection Fraction MOD 2C 30.6 % LV Cardiac Index MOD 2C 1066.9 cm???/min???m??? LV Diastolic Length 2C 8.0 cm LV Systolic Length 2C 7.4 cm DOPPLER TR Peak Velocity 240.5 cm/s TR Peak Gradient 23.1 mmHg Right Ventricular Systolic Press 28.1 mmHg FINDINGS Left Ventricle Left ventricular ejection fraction is estimated at 15-20 %. Severely decreased left ventricular ejection fraction. Right Ventricle Generalized right ventricular hypokinesis. Right Atrium No right atrial thrombus or mass seen. Left Atrium No left atrial thrombus or mass present. Mitral Valve Structurally normal mitral valve. No mitral stenosis, regurgitation or prolapse. Aortic Valve Trileaflet aortic valve. No aortic valve stenosis or regurgitation. Tricuspid Valve Structurally normal tricuspid valve. Mild tricuspid regurgitation. Pulmonic Valve Pulmonic valve not well visualized. Pericardium No pericardial effusion. Aorta CONCLUSIONS Severe LV systolic dysfunction Hypokinesis involving anterior wall and anteroseptal Previewed by: Dr. Arturo Herbert MD (Electronically Signed) Final Date: 10 February 2024 16:50
[2024-02-10] MEDS ORDERED: ALBUTEROL HFA INHALER INHALATION PRN (16:54)
--- NOTE | 2024-02-10 17:01 | P.HPIM ---
History of Present Illness H&P Date: 02/10/24 Chief Complaint: Abdominal pain 73-year-old male with medical history of lung cancer with Mediport currently on chemotherapy, COPD with chronic respiratory failure requiring 3 L of nasal cannula, severe protein calorie malnutrition with cachexia, presented for evaluation of abdominal pain. Patient tells me that he started having abdominal pain which was sharp in nature and predominantly in the periumbilical area last . He has not had a significant stool since that time, and is only been able to urinate in small quantities, which he describes as "dribbles." He has not been able to keep anything down in terms of food or water. Otherwise, he denies fevers, chills, chest pain, palpitations, syncope. He also reports increased dyspnea at rest and had to increase his oxygen requirement from 3 to 4 L at home. In the emergency room, patient was afebrile, 98/76, heart rate 97, 88% on 4 L of nasal cannula. CBC demonstrated mild anemia to 11.9, thrombocytosis to 560. Basic metabolic panel significant for hyponatremia to 129, hyperkalemia 5.5, chloride of 89, BUN of 48, creatinine of 1.18. Liver function test is significant for AST of 128, ALT of 39, albumin is 3.4, and is likely hemoconcentrated. Troponin was completed and showed a value of 56.8. EKG demonstrated findings of sinus tachycardia with ST elevations in inferior and anterior leads. Chest x-ray demonstrates findings of hyperinflation, no acute cardiopulmonary pathology. Abdomen/pelvis CT demonstrated findings of small bowel obstruction. All Systems reviewed and pertinent positives and negatives noted in HPI, all other symptoms are negative Gen: In moderate distress, ill-appearing cachectic elderly man HEENT: normocephalic, atraumatic, hearing acuity is intant, mucous membranes moist CVS: perfusing all extremities well, no pitting edema, tachycardic without appreciable murmurs Respiratory: symmetric chest expansion, no accessory muscle use, diminished breath sounds GI: Distended, tender to palpation especially at the umbilicus : no suprapubic tenderness, no CVA tenderness MSK/Derm: no rashes, cyanosis Neuro: CN II-XII intact, no motor weakness, Psych: cooperative, euthymic mood, judgment and insight is intact Labs and imaging as above Assessment/plan: Small bowel obstruction -Patient was admitted as an inpatient to the intensive care unit with telemetry -Pulmonology was consulted -NG tube was placed -General surgery was consulted -Pain control as needed with morphine as needed -Initiate zosyn empirically with low threshold for discontinuation Myocardial infarction with diffuse ST elevations on EKG and elevated troponin -Continue to trend troponins -Cardiology consult -Patient received aspirin, start aspirin 81 mg daily -Continue heparin drip, follow PTT for toxicity -Echocardiogram is pending -Initiate atorvastatin 40 mg daily Acute kidney injury with anuria Hyponatremia Hyperkalemia -Hold home Lasix -Continue with IV fluids: 75 cc/h, status post 2 L of bolus in the ER -Insert Ríos catheter and follow ins and outs strictly -Consult nephrology COPD with chronic respiratory failure requiring 3-4 L of nasal cannula Severe protein calorie malnutrition Lung cancer on chemotherapy -Home medications reviewed and reconciled Patient requested to be full code at this time, but would like to discuss this with his further. He request that provider have a conversation with his , who is not available bedside during my initial assessment, regarding CODE STATUS. Past Medical History Additional Past Medical History / Comment(s): chronic pain Past Surgical History: Heart Catheterization With Stent, Joint Replacement Smoking Status: Former smoker Past Alcohol Use History: None Reported Past Drug Use History: None Reported Medications and Allergies Home Medications Medication Instructions Recorded Confirmed Type Albuterol Sulfate [Albuterol 1 puff PO RT-Q4H PRN 02/10/24 02/10/24 History Sulfate Hfa] Fluticasone/Umeclidin/Vilanter 1 puff INHALATION RT-DAILY 02/10/24 02/10/24 History [Trelegy Ellipta 200-62.5-25] Furosemide [Lasix] 20 mg PO BID 02/10/24 02/10/24 History Gabapentin 600 mg PO TID 02/10/24 02/10/24 History HYDROcodone/APAP 7.5-325MG [[place] 1 tab PO Q6HR PRN 02/10/24 02/10/24 History 7.5-325] Pantoprazole [Protonix] 40 mg PO DAILY 02/10/24 02/10/24 History QUEtiapine [SEROquel] 25 mg PO HS 02/10/24 02/10/24 History Sertraline [Zoloft] 50 mg PO DAILY 02/10/24 02/10/24 History Allergies Allergy/AdvReac Type Severity Reaction Status Date / Time Penicillins AdvReac Unknown Verified 02/10/24 13:04 Childhood Physical Exam Osteopathic Statement: *. No significant issues noted on an osteopathic structural exam other than those noted in the History and Physical/Consult. Vitals: Vital Signs Temp Pulse Resp BP Pulse Ox 02/10/24 15:30 101 H 18 95/72 02/10/24 15:00 102 H 20 96/73 02/10/24 14:30 101 H 18 98/76 02/10/24 14:25 98.1 F 97 20 98/76 88 L 02/10/24 14:00 18 86/65 02/10/24 13:43 93 20 86/65 96 02/10/24 13:27 100 18 86/67 92 L 02/10/24 12:49 98.7 F 100 20 76/61 88 L Intake and Output 02/10/24 02/10/24 02/10/24 06:59 14:59 22:59 Other: Weight 58.967 kg Results CBC & Chem 7: 02/10/24 13:17 02/10/24 13:17 Labs: Abnormal Lab Results - Last 24 Hours (Table) 02/10/24 02/10/24 02/10/24 Range/Units 13:17 13:17 13:17 RBC 3.73 L (4.30-5.90) m/uL Hgb 11.9 L (13.0-17.5) gm/dL Hct 37.0 L (39.0-53.0) % RDW 17.6 H (11.5-15.5) % Plt Count 560 H (150-450) k/uL Lymphocytes # 0.4 L (1.0-4.8) k/uL Sodium 129 L (137-145) mmol/L Potassium 5.5 H (3.5-5.1) mmol/L Chloride 89 L (98-107) mmol/L Carbon Dioxide 36 H (22-30) mmol/L BUN 48 H (9-20) mg/dL Glucose 152 H (74-99) mg/dL AST 128 H (17-59) U/L Troponin I 56.800 H* (0.000-0.034) ng/mL Total Protein 6.0 L (6.3-8.2) g/dL Albumin 3.4 L (3.5-5.0) g/dL
[2024-02-10] MEDS ORDERED: fentaNYL (PF) 50 MCG/ML 2 ML AMP ONE (18:18)
[2024-02-10] MEDS: LIDOCAINE 1% INJ 10MG/ML (30 ML VIAL-PF) SQ ONE (18:19)
[2024-02-10] MEDS: MIDAZOLAM 2 MG/2 ML VIAL IVP ONE (18:19)
[2024-02-10] MEDS: fentaNYL (PF) 50 MCG/1 ML VIAL IVP ONE (18:19)
[2024-02-10] MEDS: VERAPAMIL SYRINGE (5 MG/10 ML) INTRAARTER ONE (18:23)
[2024-02-10] MEDS: SODIUM CHLORIDE 0.9% 1,000 ML IV ONE (18:26)
[2024-02-10] MEDS ORDERED: HEPARIN SODIUM 1,000 UN/ML (10ML VL) ONE (18:29)
[2024-02-10] MEDS ORDERED: RX INFO: IV CONTRAST WAS GIVEN 1 EACH MISC MISCELLANE PRN (18:32)
[2024-02-10] MEDS: IOPAMIDOL-370 200ML BTL INJ ONE (18:32)
--- NOTE | 2024-02-10 18:35 | P.PCN ---
Date of Procedure: 02/10/24 Operative Findings: CARDIAC CATHETERIZATION PERFORMING PHYSICIAN: David Leon MD, RPVI PROCEDURE PERFORMED: 1. Selective right and left coronary angiogram 2. Left heart catheterization 3. Ultrasound-guided access of the right radial artery INDICATION: Acute coronary syndrome COMPLICATION: None APPROACH: Right radial artery LEVEL OF SEDATION: Moderate with a sedation length of 11 minutes PROCEDURE DESCRIPTION: After obtaining an informed consent, the patient was brought to cardiac microbiology lab assistant. Local anesthesia was performed using lidocaine subcutaneously. The right radial artery was cannulated using Seldinger technique, the guidewire passed easily, following that we advanced a 5-[place] sheath dilator assembly, the wire and dilator were removed and sheath was flushed. Following that, 2 mg of verapamil Selective right and left coronary angiogram using a 6-[place] JR4 and JL 3.5 cath eters. Following that we did left heart catheterization using 6-[place] pigtail catheter. The procedure was completed there was no complication. SELECTIVE CORONARY ANGIOGRAM: The right coronary artery: Large-caliber vessel, calcified vessel, chronically occluded in the proximal to midportion Left main: Calcified with mild disease only The left circumflex: Large caliber vessel and nondominant vessel with critical disease involving the proximal portion by the bifurcation of OM branch The left anterior descending artery: The proximal LAD appears to have mild disease only. The mid LAD by the bifurcation of a large diagonal branch has disease appears to be in the range of 70 to 80% HEMODYNAMICS: LVEDP was 4 mmHg with no significant gradient across aortic valve CONCLUSION: 1. Calcified right and left coronary system 2. ARCHITECTURAL DRAFTSPERSON of the RCA and critical disease involving the LCx and severe disease involving the LAD as described above POSTPROCEDURE MANAGEMENT: The patient has DEB-3 flow in the LAD and LCx with ARCHITECTURAL DRAFTSPERSON of the RCA which fills by collaterals from the left coronary system Consider medical treatment at this point
--- NOTE | 2024-02-10 18:40 | P.CRDCN ---
History of Present Illness Consult date: 02/10/24 Chief complaint: Abdominal discomfort History of present illness: This is a 73-year-old gentleman with a past medical history significant for his tory of smoking and COPD and chronic hypoxic respiratory failure as well as history of lung cancer currently on chemotherapy with unknown details at this point. We consulted to see the patient in the emergency room for further evaluation of abnormal cardiac enzymes as well as abnormal EKG. The patient presented to the hospital with long cardiovascular symptoms including abdominal discomfort was associated with nausea. For some reasons he underwent further evaluation including an EKG and that showed sinus mechanism with ST segment elevation in the anteroseptal leads with already Q waves in the anteroseptal leads as well. Subsequently troponin was performed and came to be also abnormal. Also on examination the patient was found to have abdominal wall distention and abdominal tenderness with further evaluation showed small bowel obstruction which was extremely severe. The patient did not report any symptoms of chest pain or chest discomfort or any dizziness or lightheadedness or pre syncope or syncope and no history of CAD or heart failure or cardiac arrhythmia and never seen any lace finisher before. Subsequently initially medical treatment only was advised giving the absence of any chest pain or chest discomfort as well as the patient probably completed an infarct. The patient was seen after that by the surgical team and he was deemed to be not needing any surgery at this point. Further evaluation was performed including an echo and that showed severe cardiomyopathy with EF around 20%. Subsequently patient underwent a heart catheterization which revealed chronic total occlusion of the RCA which fills by collaterals from the left coronary system along with severe disease involving the LCx and severe disease involving the LAD but both the LCx and LAD have DEB-3 flow. I felt at this point doing percutaneous revascularization will not help the patient in case he need to have surgery down the line. With that being said I am going to maximize medical treatment at this point and optimize medical treatment for cardiomyopathy as well as CAD and acute coronary syndrome. The examination revealed mild sinus tachycardia with soft blood pressure and diminished breathing sounds bilaterally and no edema was noted in the lower extremities. Assessment Small bowel obstruction Acute coronary syndrome Severe CAD as described above History of smoking COPD History of lung cancer Plan Medical treatment for the CAD Consider starting the patient back on heparin once we have hemostasis Optimize medical treatment for acute coronary event and CAD and cardiomyopathy Follow-up with the patient Past Medical History Additional Past Medical History / Comment(s): chronic pain Past Surgical History: Heart Catheterization With Stent, Joint Replacement Smoking Status: Former smoker Past Alcohol Use History: None Reported Past Drug Use History: None Reported Medications and Allergies Home Medications Medication Instructions Recorded Confirmed Type Albuterol Sulfate [Albuterol 1 puff PO RT-Q4H PRN 02/10/24 02/10/24 History Sulfate Hfa] Fluticasone/Umeclidin/Vilanter 1 puff INHALATION RT-DAILY 02/10/24 02/10/24 History [Trelegy Ellipta 200-62.5-25] Furosemide [Lasix] 20 mg PO BID 02/10/24 02/10/24 History Gabapentin 600 mg PO TID 02/10/24 02/10/24 History HYDROcodone/APAP 7.5-325MG [[place] 1 tab PO Q6HR PRN 02/10/24 02/10/24 History 7.5-325] Pantoprazole [Protonix] 40 mg PO DAILY 02/10/24 02/10/24 History QUEtiapine [SEROquel] 25 mg PO HS 02/10/24 02/10/24 History Sertraline [Zoloft] 50 mg PO DAILY 02/10/24 02/10/24 History Allergies Allergy/AdvReac Type Severity Reaction Status Date / Time Penicillins AdvReac Unknown Verified 02/10/24 13:04 Childhood Physical Exam Vitals: Vital Signs Temp Pulse Resp BP Pulse Ox 02/10/24 17:45 98.4 F 02/10/24 17:00 108 H 18 101/70 92 L 02/10/24 16:30 107 H 18 98/75 95 02/10/24 16:00 109 H 18 106/83 95 02/10/24 15:30 101 H 18 95/72 02/10/24 15:00 102 H 20 96/73 02/10/24 14:30 101 H 18 98/76 02/10/24 14:25 98.1 F 97 20 98/76 88 L 02/10/24 14:00 18 86/65 02/10/24 13:43 93 20 86/65 96 02/10/24 13:27 100 18 86/67 92 L 02/10/24 12:49 98.7 F 100 20 76/61 88 L Intake and Output 02/10/24 02/10/24 02/10/24 06:59 14:59 22:59 Intake Total 67.572 Output Total 1000 Balance -932.428 Intake: IV 50 Intake, IV Titration 17.572 Amount Heparin Sod,Pork in 0.45% 17.572 NaCl 25,000 unit In 0.45 % NaCl 1 250ml.bag @ 12 UNITS/KG/HR 7.076 mls/hr IV .Q24H [facility] Rx#: [id number] Output: Gastric Drainage 1000 Other: Weight 58.967 kg Results 02/10/24 13:17 02/10/24 13:17 Cardiac Enzymes 02/10/24 02/10/24 Range/Units 13:17 13:17 AST 128 H (17-59) U/L Troponin I 56.800 H* (0.000-0.034) ng/mL Coagulation 02/10/24 Range/Units 13:17 PT 11.6 (10.0-12.5) sec APTT 23.7 (22.0-30.0) sec CBC 02/10/24 Range/Units 13:17 WBC 7.0 (3.8-10.6) k/uL RBC 3.73 L (4.30-5.90) m/uL Hgb 11.9 L (13.0-17.5) gm/dL Hct 37.0 L (39.0-53.0) % Plt Count 560 H (150-450) k/uL Comprehensive Metabolic Panel 02/10/24 Range/Units 13:17 Sodium 129 L (137-145) mmol/L Potassium 5.5 H (3.5-5.1) mmol/L Chloride 89 L (98-107) mmol/L Carbon Dioxide 36 H (22-30) mmol/L BUN 48 H (9-20) mg/dL Creatinine 1.18 (0.66-1.25) mg/dL Glucose 152 H (74-99) mg/dL Calcium 9.1 (8.4-10.2) mg/dL AST 128 H (17-59) U/L ALT 39 (4-49) U/L Alkaline Phosphatase 71 (38-126) U/L Total Protein 6.0 L (6.3-8.2) g/dL Albumin 3.4 L (3.5-5.0) g/dL Current Medications Generic Name Dose Route Start Last Admin Trade Name Freq PRN Reason Stop Dose Admin Hydrocodone Bitart/Acetaminophen 1 each 02/10/24 16:54 Hydrocodone/Apap 7.5-325mg 1 Each Tab PO Q6HR PRN Pain Albuterol Sulfate 1 puff 02/10/24 16:54 Albuterol Hfa Inhaler INHALATION RT-Q4H PRN Shortness Of Breath Atorvastatin Calcium 40 mg 02/10/24 21:00 Atorvastatin 40 Mg Tab PO HS [facility] Benzocaine 1 spray 02/10/24 15:35 02/10/24 16:16 Benzocaine [place] 1 Can MUCOUS MEM 1 spray QID PRN Administration Mouth Irritation Protocol Budesonide/Formoterol Fumarate 2 puff 02/11/24 08:00 Symbicort 80-4.5 Mcg Inhaler INHALATION RT-BID [facility] Gabapentin 600 mg 02/10/24 22:00 Gabapentin 300 Mg Cap PO TID [facility] Heparin Sodium (Porcine) 0 unit 02/10/24 14:13 Heparin Sodium 1,000 Un/Ml (10ml Vl) IV PER PROTOCOL PRN Low PTT Protocol Heparin Sodium/Sodium Chloride 250 mls @ 7.076 mls/hr 02/10/24 14:15 02/10/24 18:00 25,000 unit/ Sodium Chloride IV 0 units/kg/hr .Q24H [facility] 0 mls/hr Titration Protocol 12 UNITS/KG/HR Sodium Chloride 1,000 mls @ 75 mls/hr 02/10/24 17:00 Saline 0.9% IV .[id number] [facility] Piperacillin Sod/Tazobactam 100 mls @ 25 mls/hr 02/11/24 00:00 Sod 3.375 gm/ Sodium Chloride IVPB Q8HR [facility] Protocol Sodium Chloride 1,000 mls @ 75 mls/hr 02/10/24 18:45 Saline 0.9% IV 02/10/24 23:44 .[id number] [facility] Ipratropium [place] 0.5 mg 02/10/24 20:00 Ipratropium 0.5 Mg/2.5 Ml Nebu INHALATION RT-QID [facility] Miscellaneous Information 1 each 02/10/24 18:32 Rx Info: Iv Contrast Was Given 1 Each Misc MISCELLANE 02/12/24 18:32 DAILY PRN Per Protocol Naloxone HCl 0.2 mg 02/10/24 14:41 Naloxone 0.4 Mg/Ml 1 Ml Vial IV Q2M PRN Opioid Reversal Pantoprazole Sodium 40 mg 02/11/24 09:00 Pantoprazole 40 Mg Tablet PO DAILY [facility] Quetiapine Fumarate 25 mg 02/10/24 21:00 Quetiapine 25 Mg Tab PO HS [facility] Sertraline HCl 50 mg 02/11/24 09:00 Sertraline 50 Mg Tab PO DAILY [facility] Intake and Output 02/10/24 02/10/24 02/10/24 06:59 14:59 22:59 Intake Total 67.572 Output Total 1000 Balance -932.428 Intake: IV 50 Intake, IV Titration 17.572 Amount Heparin Sod,Pork in 0.45% 17.572 NaCl 25,000 unit In 0.45 % NaCl 1 250ml.bag @ 12 UNITS/KG/HR 7.076 mls/hr IV .Q24H [facility] Rx#: [id number] Output: Gastric Drainage 1000 Other: Weight 58.967 kg Patient Weight 02/11/24 06:59 Weight 58.967 kg 02/10/24 13:17 02/10/24 13:17
[2024-02-10] MEDS: IPRATROPIUM 0.5 MG/2.5 ML NEBU INHALATION SCH (20:50)
[2024-02-10] MEDS: PIPERACILLIN-TAZOBACTAM 3.375 GM in SODIUM CHLORIDE 0.9% 100 ML IVPB STA (21:40)
[2024-02-10] MEDS: SODIUM CHLORIDE 0.9% 1,000 ML IV SCH ×2 (21:40→21:45)
[2024-02-10] MEDS: QUEtiapine 25 MG TAB PO SCH (21:47)
[2024-02-10] MEDS: ATORVASTATIN 40 MG TAB PO SCH (21:47)
[2024-02-10] MEDS: GABAPENTIN 300 MG CAP PO SCH (21:47)
[2024-02-10] MEDS: HYDROcodone/APAP 7.5-325MG 1 EACH TAB PO PRN (21:56)
[2024-02-10] MEDS ORDERED: PIPERACILLIN-TAZOBACTAM 3.375 GM in SODIUM CHLORIDE 0.9% 100 ML IVPB SCH (22:00)
[2024-02-10] MEDS: PIPERACILLIN-TAZOBACTAM 3.375 GM in SODIUM CHLORIDE 0.9% 100 ML IVPB SCH (23:26)
--- NOTE | 2024-02-11 01:34 | P.CNPUL ---
History of Present Illness Consult date: 02/11/24 Requesting physician: Ash Aguirre Reason for consult: other (ICU evaluation) Chief complaint: Abdominal pain History of present illness: Patient is a 73-year-old white male with past medical history significant for COPD, chronic hypoxemic respiratory failure, lung cancer undergoing current systemic treatment, former tobacco smoker, among other things. Patient states that he has lung cancer diagnosed approximately 6 months ago at [facility]. He follows with an out-of-town oncologist, Dr. Rincon, who directs his treatments. He is chronically oxygen dependent on 4 L/min nasal cannula. Quit smoking over 2 years ago. He presents to the emergency department yesterday afternoon complaining of severe periumbilical abdominal pain, which reportedly started on . His appetite has been poor. Last bowel movement was approximately 4 days ago, and small/liquid. Denies any cookie blood loss. Abdominal/pelvis CT demonstrated marked distal small bowel obstruction with an uncertain transition point. No free intraperitoneal air or fluid. No definitive masses. Incidentally, bilateral lower lobe pleural effusions were seen. Questionable airspace infiltrates or atelectasis. During his initial workup in the emergency department, he was noted to have diffuse ST segment elevations, as well as, significantly elevated cardiac troponin. Denies prior history of coronary artery disease, prior cardiac stents, or heart attacks. He denies any chest pain, acute shortness of breath, nausea, diaphoresis. Does admit some increased bilateral lower extremity/ankle edema. CBC: WBC count 7, hemoglobin 11.9, hematocrit 37, platelets 560. CMP: Sodium 129, potassium 5.5, chloride 89, serum bicarb 36, BUN 48, creatinine 1.18, glucose 152. AST 128, ALT 39, ALP 71. Troponin 56.8. EKG showing diffuse ST elevation in leads II, III, aVF; V3, V4, V5. He did go to the Lead Simulation Modeling [facility] yesterday evening which demonstrated chronic total occlusion of the RCA, critical disease involving the left circumflex, and severe disease involving the LAD. Cardiology is treating the patient medically at this point. Follow-up echocardiogram estimating severely decreased left ventricular ejection fraction of 15 to 20%. There is hypokinesis involving the anterior wall and anterior septum. Patient is currently on the cardiac stepdown unit. He appears comfortable lying in bed. Cachectic and frail. He is currently on 2 L/min nasal cannula, in no acute respiratory distress. SpO2 is 93%. He is slightly tachycardic. Blood pressure normotensive. No current chest pain. Currently on heparin infusion per protocol. Normal saline infusing at 75 mL/h. His abdomen remains distended. Abdominal pain has improved, currently rated 6/10 on a 10 point numerical scale. This is a generalized abdominal discomfort. No nausea or vomiting. He does have an NG tube to low intermittent suction for decompression it is draining a brown/fecal like material. I am told almost 1 L of output was initially drained on insertion of the nasogastric tube. He is currently NPO. General surgery has evaluated this patient, no plans for immediate surgical intervention, due to patient's acute WA. He is currently covered empirically on Zosyn. Reportedly has history of unknown penicillin allergy as a child. Prognosis is guarded. Review of Systems REVIEW OF SYSTEMS: CONSTITUTIONAL: Denies any recent significant weight loss or weight gain. EYES: Denies change in vision. EARS, NOSE, MOUTH, THROAT: Denies headaches, denies sore throat. CARDIOVASCULAR: Denies chest pain, palpitations or syncopal episodes. RESPIRATORY: Denies shortness of breath, cough, congestion or hemoptysis. GASTROINTESTINAL: See HPI GENITOURINARY: Denies hematuria, denies infections. MUSKULOSKELETAL: Denies pain, denies swelling. INTEGUMENTARY: Denies rash, denies eczema. NEUROLOGICAL: Denies recent memory loss, no recent seizure activity. PSYCHIATRIC: Denies anxiety, denies depression. HEMATOLOGIC/LYMPHATIC: Denies anemia, denies enlarged lymph node Past Medical History Past Medical History: Cancer, COPD Additional Past Medical History / Comment(s): Lung cancer, chronic pain History of Any Multi-Drug Resistant Organisms: None Reported Past Surgical History: Heart Catheterization With Stent, Joint Replacement Past Anesthesia/Blood Transfusion Reactions: No Reported Reaction Date of Last Stent Placement:: 2021 Past Psychological History: No Psychological Hx Reported Smoking Status: Former smoker Past Alcohol Use History: None Reported Past Drug Use History: None Reported Medications and Allergies Home Medications Medication Instructions Recorded Confirmed Type Albuterol Sulfate [Albuterol 1 puff PO RT-Q4H PRN 02/10/24 02/10/24 History Sulfate Hfa] Fluticasone/Umeclidin/Vilanter 1 puff INHALATION RT-DAILY 02/10/24 02/10/24 History [Trelegy Ellipta 200-62.5-25] Furosemide [Lasix] 20 mg PO BID 02/10/24 02/10/24 History Gabapentin 600 mg PO TID 02/10/24 02/10/24 History HYDROcodone/APAP 7.5-325MG [Sawyer 1 tab PO Q6HR PRN 02/10/24 02/10/24 History 7.5-325] Pantoprazole [Protonix] 40 mg PO DAILY 02/10/24 02/10/24 History QUEtiapine [SEROquel] 25 mg PO HS 02/10/24 02/10/24 History Sertraline [Zoloft] 50 mg PO DAILY 02/10/24 02/10/24 History Allergies Allergy/AdvReac Type Severity Reaction Status Date / Time Penicillins AdvReac Unknown Verified 02/10/24 13:04 Childhood Physical Exam Vitals: Vital Signs Temp Pulse Pulse Resp BP BP Pulse Ox 02/10/24 23:47 98.3 F 103 H 18 104/67 93 L 02/10/24 20:58 72 02/10/24 20:50 68 02/10/24 20:00 97.8 F 101 H 20 98/65 91 L 02/10/24 19:56 98/65 02/10/24 19:23 97.8 F 91 16 91 L 02/10/24 17:45 98.4 F 02/10/24 17:00 108 H 18 101/70 92 L 02/10/24 16:30 107 H 18 98/75 95 02/10/24 16:00 109 H 18 106/83 95 02/10/24 15:30 101 H 18 95/72 02/10/24 15:00 102 H 20 96/73 02/10/24 14:30 101 H 18 98/76 02/10/24 14:25 98.1 F 97 20 98/76 88 L 02/10/24 14:00 18 86/65 02/10/24 13:43 93 20 86/65 96 02/10/24 13:27 100 18 86/67 92 L 02/10/24 12:49 98.7 F 100 20 76/61 88 L Intake and Output 02/10/24 02/10/24 02/11/24 14:59 22:59 06:59 Intake Total 67.572 2.241 Output Total 1150 Balance -1082.428 2.241 Intake: IV 50 Intake, IV Titration 17.572 2.241 Amount Heparin Sod,Pork in 0.45% 17.572 2.241 NaCl 25,000 unit In 0.45 % NaCl 1 250ml.bag @ 12 UNITS/KG/HR 7.076 mls/hr IV .Q24H [facility] Rx#: [id number] Oral 0 Output: Gastric Drainage 1000 Urine 150 Other: Voiding Method Urinal # Voids 1 Weight 58.967 kg 58.967 kg GENERAL EXAM: Alert, 73-year-old white male, frail/cachectic, fairly comfortable in no apparent distress. HEAD: Normocephalic and atraumatic EYES: Normal reaction of pupils, equal size. NOSE: Clear with pink turbinates. THROAT: No erythema or exudates. NECK: No masses, no JVD. CHEST: Barrel chest, right chest Mediport LUNGS: Equal air entry with diminished lung sounds throughout and scattered rhonchi. No crackles, wheeze, or focal dullness. On 3 L/min nasal cannula. No conversational dyspnea or accessory muscle use while at rest CVS: S1 and S2 normal with no audible murmur, regular rhythm. No extra heart sounds ABDOMEN: Marked abdominal distention, hypoactive bowel sounds, facial grimacing and guarding with palpation, nasogastric tube hooked to low intermittent suction, draining brown output SPINE: No scoliosis or deformity SKIN: No rashes CENTRAL NERVOUS SYSTEM: No focal deficits, tone is normal in all 4 extremities. EXTREMITIES: There is no peripheral edema, clubbing, or cyanosis. Peripheral pulses are intact. Results - Laboratory Findings CBC and BMP: 02/10/24 13:17 02/10/24 13:17 PT/INR, D-dimer PT 11.6 sec (10.0-12.5) 02/10/24 13:17 INR 1.1 (<1.2) 02/10/24 13:17 Abnormal lab findings: Abnormal Labs 02/10/24 02/10/24 02/10/24 13:17 13:17 13:17 RBC 3.73 L Hgb 11.9 L Hct 37.0 L RDW 17.6 H Plt Count 560 H Lymphocytes # 0.4 L APTT Sodium 129 L Potassium 5.5 H Chloride 89 L Carbon Dioxide 36 H BUN 48 H Glucose 152 H AST 128 H Troponin I 56.800 H* Total Protein 6.0 L Albumin 3.4 L 02/10/24 20:29 RBC Hgb Hct RDW Plt Count Lymphocytes # APTT 21.3 L Sodium Potassium Chloride Carbon Dioxide BUN Glucose AST Troponin I Total Protein Albumin - Diagnostic Findings Chest x-ray: image reviewed Assessment and Plan Assessment: Acute ST elevation WA, status post heart catheterization, demonstrating chronic total occlusion of the RCA, critical disease involving the left circumflex, and severe disease involving the LAD. No plans for immediate surgical intervention. Cardiology is treating the patient medically at this point. Coronary artery disease, as reported above Ischemic cardiomyopathy, with an ejection fraction of 15 to 20% Small bowel obstruction, general surgery evaluated the patient, currently has NG tube to low intermittent suction for decompression. Awaiting further surgical recommendations. Abdominal pain Hyponatremia, likely related to poor oral intake/solute intake Chronic obstructive pulmonary disease, appears stable History of lung cancer, reportedly currently undergoing systemic chemotherapy, last reported treatment was approximately 3 weeks ago Chronic hypoxemic respiratory failure, secondary to above, normally maintained on 4 L/min nasal cannula Former tobacco smoker Plan: Patient's medications, labs, imaging were reviewed Patient has been admitted to the cardiac stepdown unit for monitoring. Currently NG tube to low intermittent suction N.p.o. status Awaiting further recommendations from general surgery Currently empirically covered on Zosyn. Will investigate patient's penicillin allergy, consider alternative antibiotic Status/post cardiac catheterization, demonstrating multivessel coronary artery disease On heparin infusion per protocol Not a candidate for surgical coronary revascularization at this time Follow-up echocardiogram reviewed Patient's prognosis is poor secondary to multiple above-mentioned comorbidities Currently being monitored in the cardiac stepdown unit. Hemodynamics are stable. No need for ICU transfer at this time. We will continue to follow. I have personally seen and examined the patient, performed the documentation and the assessment and plan as written. Number of minutes spent on the visit:20 Time with Patient: Greater than 30
[2024-02-11] MEDS: PANTOPRAZOLE 40 MG TABLET PO SCH (07:43)
[2024-02-11] MEDS: SERTRALINE 50 MG TAB PO SCH (07:43)
[2024-02-11] MEDS: SYMBICORT 80-4.5 MCG INHALER INHALATION SCH (08:59)
[2024-02-11] MEDS: METOPROLOL TARTRATE 12.5 MG TAB PO SCH (09:19)
[2024-02-11] MEDS: ASPIRIN 81 MG PO SCH (09:19)
[2024-02-11] MEDS: HEPARIN SODIUM,PORCINE 5,000 UNIT/ML 1 ML VIAL SQ SCH (09:19)
[2024-02-11] MEDS: HYDROmorphone 1 MG/ML 1 ML SYRINGE IVP PRN (09:36)
[2024-02-11] MEDS: SODIUM CHLORIDE 0.9% 1,000 ML IV ONE (11:19)
--- NOTE | 2024-02-11 11:56 | P.PN ---
Subjective HISTORY OF PRESENT ILLNESS: 02/10/2024 This is a 73-year-old gentleman with a past medical history significant for history of smoking and COPD and chronic hypoxic respiratory failure as well as history of lung cancer currently on chemotherapy with unknown details at this point. We consulted to see the patient in the emergency room for further e valuation of abnormal cardiac enzymes as well as abnormal EKG. The patient presented to the hospital with long cardiovascular symptoms including abdominal discomfort was associated with nausea. For some reasons he underwent further evaluation including an EKG and that showed sinus mechanism with ST segment elevation in the anteroseptal leads with already Q waves in the anteroseptal leads as well. Subsequently troponin was performed and came to be also abnormal. Also on examination the patient was found to have abdominal wall distention and abdominal tenderness with further evaluation showed small bowel obstruction which was extremely severe. The patient did not report any symptoms of chest pain or chest discomfort or any dizziness or lightheadedness or presyncope or syncope and no history of CAD or heart failure or cardiac arrhythmia and never seen any nurse discharge planner before. Subsequently initially medical treatment only was advised giving the absence of any chest pain or chest discomfort as well as the patient probably completed an infarct. The patient was seen after that by the surgical team and he was deemed to be not needing any surgery at this point. Further evaluation was performed including an echo and that showed severe cardiomyopathy with EF around 20%. Subsequently patient underwent a heart catheterization which revealed chronic total occlusion of the RCA which fills by collaterals from the left coronary system along with severe disease involving the LCx and severe disease involving the LAD but both the LCx and LAD have DEB-3 flow. I felt at this point doing percutaneous revascularization will not help the patient in case he need to have surgery down the line. With that being said I am going to maximize medical treatment at this point and optimize medical treatment for cardiomyopathy as well as CAD and acute coronary syndrome. The examination revealed mild sinus tachycardia with soft blood pressure and diminished breathing sounds bilaterally and no edema was noted in the lower extremities. 02/11/2024 Patient examined this morning at the bedside. Patient currently denies any chest pain or pressure. He denies any shortness of breath. He continues to report significant abdominal pain. He remains n.p.o. with NG tube to intermittent suction. PHYSICAL EXAM: VITAL SIGNS: Reviewed. GENERAL: Well-developed in no acute distress. NECK: Supple. No JVD or thyromegaly LUNGS: Respirations even and unlabored. Lungs essentially clear to auscultation bilaterally. HEART: Regular rate and rhythm. S1 and S2 heard. EXTREMITIES: Normal range of motion. No clubbing or cyanosis. Peripheral pulses intact. No lower extremity edema ASSESSMENT: Acute coronary syndrome, status post cardiac catheterization revealing ROLLS BAKER of the RCA, critical disease involving the circumflex, and severe disease involving the LAD. Small bowel obstruction Ischemic cardiomyopathy, ejection fraction 20% History of lung cancer COPD Nicotine dependence PLAN: Add aspirin 81 mg daily Add small dose beta-javier with metoprolol tartrate 12.5 mg twice a day Patient unable to tolerate additional cardiomyopathy regimen due to borderline hypotension Discontinue IV heparin. Begin heparin subcu Will hold off on initiating Plavix secondary to possible surgical intervention Further recommendations pending patient course Nurse practitioner note has been reviewed by physician. Signing provider agrees with the documented findings, assessment, and plan of care documented by REHABILITATION TEACHER as a scribe. Objective - Vital Signs Vital signs: Vital Signs Temp 98.4 F 02/11/24 08:00 Pulse 90 02/11/24 11:36 Resp 18 02/11/24 11:36 BP 102/66 02/11/24 11:36 Pulse Ox 96 02/11/24 11:36 FiO2 Intake & Output 02/10/24 02/11/24 02/11/24 18:59 06:59 18:59 Intake Total 67.572 2.241 179.556 Output Total 1000 300 0 Balance -932.428 -297.759 179.556 Weight 58.967 kg 58.967 kg Intake: IV 50 Intake, IV Titration 17.572 2.241 59.556 Amount Heparin Sod,Pork in 0.45% 17.572 2.241 59.556 NaCl 25,000 unit In 0.45 % NaCl 1 250ml.bag @ 12 UNITS/KG/HR 7.076 mls/hr IV .Q24H [facility] Rx#: [id number] Oral 0 120 Output: Gastric Drainage 1000 Urine 300 0 Other: Voiding Method Urinal Urinal # Voids 1 - Labs CBC & Chem 7: 02/10/24 13:17 02/10/24 13:17 Labs: Abnormal Lab Results - Last 24 Hours (Table) 02/10/24 02/10/24 02/10/24 Range/Units 13:17 13:17 13:17 RBC 3.73 L (4.30-5.90) m/uL Hgb 11.9 L (13.0-17.5) gm/dL Hct 37.0 L (39.0-53.0) % RDW 17.6 H (11.5-15.5) % Plt Count 560 H (150-450) k/uL Lymphocytes # 0.4 L (1.0-4.8) k/uL APTT (22.0-30.0) sec Sodium 129 L (137-145) mmol/L Potassium 5.5 H (3.5-5.1) mmol/L Chloride 89 L (98-107) mmol/L Carbon Dioxide 36 H (22-30) mmol/L BUN 48 H (9-20) mg/dL Glucose 152 H (74-99) mg/dL AST 128 H (17-59) U/L Troponin I 56.800 H* (0.000-0.034) ng/mL Total Protein 6.0 L (6.3-8.2) g/dL Albumin 3.4 L (3.5-5.0) g/dL 02/10/24 Range/Units 20:29 RBC (4.30-5.90) m/uL Hgb (13.0-17.5) gm/dL Hct (39.0-53.0) % RDW (11.5-15.5) % Plt Count (150-450) k/uL Lymphocytes # (1.0-4.8) k/uL APTT 21.3 L (22.0-30.0) sec Sodium (137-145) mmol/L Potassium (3.5-5.1) mmol/L Chloride (98-107) mmol/L Carbon Dioxide (22-30) mmol/L BUN (9-20) mg/dL Glucose (74-99) mg/dL AST (17-59) U/L Troponin I (0.000-0.034) ng/mL Total Protein (6.3-8.2) g/dL Albumin (3.5-5.0) g/dL
[2024-02-11 12:14] LABS: African American GFR (CKD) 64 (>60 ml/min/1.73 sqM); Anion Gap 8 mmol/L; Blood Urea Nitrogen 51 mg/dL (9-20); Calcium 8.5 mg/dL (8.4-10.2); Carbon Dioxide 33 mmol/L (22-30); Chloride 90 mmol/L (98-107); Glucose 89 mg/dL (74-99); Non-African American GFR(CKD) 55 (>60 ml/min/1.73 sqM); Potassium 4.6 mmol/L (3.5-5.1); Sodium 131 mmol/L (137-145)
--- NOTE | 2024-02-11 12:29 | P.PN ---
Subjective Progress Note Date: 02/11/24 CHIEF COMPLAINT: SBO HISTORY OF PRESENT ILLNESS: Patient with acute coronary syndrome, severe coronary artery disease, echo with an EF of 15 to 20%. Status post heart catheterization. Surgical service following in regards to small bowel obstruction. Patient denies any flatus or bowel movement. NG tube with 1000 and output yesterday. And 50 ml brownish output in the canister currently. Patient remains distended. He reports that his abdomen was actually firmer this morning. Afebrile. Mildly tachycardic. Patient reports no prior abdominal surgeries. He reports last colonoscopy was about 8 years ago and was normal. Does have a history of lung cancer and underwent chemotherapy about 3 to 4 weeks ago. Patient seen and examined with Dr. Vu PHYSICAL EXAM: VITAL SIGNS: Reviewed. GENERAL: no acute distress. ABDOMEN: Distended. Diffuse tenderness NEUROLOGIC: Alert and oriented. Cranial nerves II through XII grossly intact. ASSESSMENT: 1. Small bowel obstruction 2. Acute coronary syndrome 3. Hx of lung cancer PLAN: -Patient scheduled for exploratory laparotomy with lysis of adhesions today with Dr. Vu -Dr. Vu did discuss case with pulmonary and cardiology service. Patient high risk but is able to proceed with surgical intervention -Called and updated patient's via phone about patient's case and surgery. All questions answered to the best my ability -Continue NG tube for decompression -Keep patient n.p.o. -Continue IV fluids Physician Occupational Therapy Manager note has been reviewed by physician. Signing provider agrees with the documented findings, assessment, and plan of care. Objective - Vital Signs Vital signs: Vital Signs Temp 98.4 F 02/11/24 08:00 Pulse 101 H 02/11/24 09:09 Resp 18 02/11/24 08:14 BP 100/66 02/11/24 08:00 Pulse Ox 94 L 02/11/24 09:00 FiO2 Intake & Output 02/10/24 02/11/24 02/11/24 18:59 06:59 18:59 Intake Total 67.572 2.241 59.556 Output Total 1000 300 Balance -932.428 -297.759 59.556 Weight 58.967 kg 58.967 kg Intake: IV 50 Intake, IV Titration 17.572 2.241 59.556 Amount Heparin Sod,Pork in 0.45% 17.572 2.241 59.556 NaCl 25,000 unit In 0.45 % NaCl 1 250ml.bag @ 12 UNITS/KG/HR 7.076 mls/hr IV .Q24H [facility] Rx#: [id number] Oral 0 Output: Gastric Drainage 1000 Urine 300 Other: Voiding Method Urinal # Voids 1 - Labs CBC & Chem 7: 02/10/24 13:17 02/11/24 11:31 Labs: Abnormal Lab Results - Last 24 Hours (Table) 02/10/24 02/10/24 02/10/24 Range/Units 13:17 13:17 13:17 RBC 3.73 L (4.30-5.90) m/uL Hgb 11.9 L (13.0-17.5) gm/dL Hct 37.0 L (39.0-53.0) % RDW 17.6 H (11.5-15.5) % Plt Count 560 H (150-450) k/uL Lymphocytes # 0.4 L (1.0-4.8) k/uL APTT (22.0-30.0) sec Sodium 129 L (137-145) mmol/L Potassium 5.5 H (3.5-5.1) mmol/L Chloride 89 L (98-107) mmol/L Carbon Dioxide 36 H (22-30) mmol/L BUN 48 H (9-20) mg/dL Glucose 152 H (74-99) mg/dL AST 128 H (17-59) U/L Troponin I 56.800 H* (0.000-0.034) ng/mL Total Protein 6.0 L (6.3-8.2) g/dL Albumin 3.4 L (3.5-5.0) g/dL 02/10/24 Range/Units 20:29 RBC (4.30-5.90) m/uL Hgb (13.0-17.5) gm/dL Hct (39.0-53.0) % RDW (11.5-15.5) % Plt Count (150-450) k/uL Lymphocytes # (1.0-4.8) k/uL APTT 21.3 L (22.0-30.0) sec Sodium (137-145) mmol/L Potassium (3.5-5.1) mmol/L Chloride (98-107) mmol/L Carbon Dioxide (22-30) mmol/L BUN (9-20) mg/dL Glucose (74-99) mg/dL AST (17-59) U/L Troponin I (0.000-0.034) ng/mL Total Protein (6.3-8.2) g/dL Albumin (3.5-5.0) g/dL
--- NOTE | 2024-02-11 12:46 | P.NPCON ---
History of Present Illness - Reason for Consult Consult date: 02/11/24 - History of Present Illness Patient is a 73-year-old male being consulted for acute kidney injury with anuria and hyperkalemia hyponatremia. He has a past medical history of lung cancer with metastasis on chemotherapy and COPD with chronic respiratory failure. He presented to the ED yesterday with abdominal pain, constipation, and anuria since . His creatinine is 1.18. His potassium is 5.5. Blood pressures were noted to be significantly low with as low as 70. No obstruction noted on abdominal CT 02/10/2024. Echo showed EF of 15-20%. Currently maintained on saline. NG tube 1000mL gastric drainage. Today he states that he is able to urinate a little for the first time since . Past Medical History Past Medical History: Cancer, COPD Additional Past Medical History / Comment(s): Lung cancer, chronic pain History of Any Multi-Drug Resistant Organisms: None Reported Past Surgical History: Heart Catheterization With Stent, Joint Replacement Past Anesthesia/Blood Transfusion Reactions: No Reported Reaction Date of Last Stent Placement:: 2021 Past Psychological History: No Psychological Hx Reported Smoking Status: Former smoker Past Alcohol Use History: None Reported Past Drug Use History: None Reported Medications and Allergies Home Medications Medication Instructions Recorded Confirmed Type Albuterol Sulfate [Albuterol 1 puff PO RT-Q4H PRN 02/10/24 02/10/24 History Sulfate Hfa] Fluticasone/Umeclidin/Vilanter 1 puff INHALATION RT-DAILY 02/10/24 02/10/24 History [Trelegy Ellipta 200-62.5-25] Furosemide [Lasix] 20 mg PO BID 02/10/24 02/10/24 History Gabapentin 600 mg PO TID 02/10/24 02/10/24 History HYDROcodone/APAP 7.5-325MG [Curtis 1 tab PO Q6HR PRN 02/10/24 02/10/24 History 7.5-325] Pantoprazole [Protonix] 40 mg PO DAILY 02/10/24 02/10/24 History QUEtiapine [SEROquel] 25 mg PO HS 02/10/24 02/10/24 History Sertraline [Zoloft] 50 mg PO DAILY 02/10/24 02/10/24 History Allergies Allergy/AdvReac Type Severity Reaction Status Date / Time Penicillins AdvReac Unknown Verified 02/10/24 13:04 Childhood Physical Exam Vitals: Vital Signs Temp Pulse Pulse Resp BP BP BP 02/11/24 09:09 101 H 02/11/24 09:00 100 02/11/24 08:14 18 02/11/24 08:00 98.4 F 114 H 18 100/66 02/11/24 04:00 97.8 F 104 H 16 87/61 02/11/24 02:40 98 F 104 H 18 92/54 02/11/24 02:16 85/55 02/11/24 02:10 70/42 02/10/24 23:47 98.3 F 103 H 18 104/67 02/10/24 20:58 72 02/10/24 20:50 68 02/10/24 20:00 97.8 F 101 H 20 98/65 02/10/24 19:56 98/65 02/10/24 19:23 97.8 F 91 16 02/10/24 17:45 98.4 F 02/10/24 17:00 108 H 18 101/70 02/10/24 16:30 107 H 18 98/75 02/10/24 16:00 109 H 18 106/83 02/10/24 15:30 101 H 18 95/72 02/10/24 15:00 102 H 20 96/73 02/10/24 14:30 101 H 18 98/76 02/10/24 14:25 98.1 F 97 20 98/76 02/10/24 14:00 18 86/65 02/10/24 13:43 93 20 86/65 02/10/24 13:27 100 18 86/67 02/10/24 12:49 98.7 F 100 20 76/61 Pulse Ox 02/11/24 09:09 02/11/24 09:00 94 L 02/11/24 08:14 88 L 02/11/24 08:00 86 L 02/11/24 04:00 91 L 02/11/24 02:40 91 L 02/11/24 02:16 02/11/24 02:10 02/10/24 23:47 93 L 02/10/24 20:58 02/10/24 20:50 02/10/24 20:00 91 L 02/10/24 19:56 02/10/24 19:23 91 L 02/10/24 17:45 02/10/24 17:00 92 L 02/10/24 16:30 95 02/10/24 16:00 95 02/10/24 15:30 02/10/24 15:00 02/10/24 14:30 02/10/24 14:25 88 L 02/10/24 14:00 02/10/24 13:43 96 02/10/24 13:27 92 L 02/10/24 12:49 88 L Intake and Output 02/10/24 02/11/24 02/11/24 22:59 06:59 14:59 Intake Total 67.572 2.241 59.556 Output Total 1150 150 Balance -1082.428 -147.759 59.556 Intake: IV 50 Intake, IV Titration 17.572 2.241 59.556 Amount Heparin Sod,Pork in 0.45% 17.572 2.241 59.556 NaCl 25,000 unit In 0.45 % NaCl 1 250ml.bag @ 12 UNITS/KG/HR 7.076 mls/hr IV .Q24H [facility] Rx#: [id number] Oral 0 Output: Gastric Drainage 1000 Urine 150 150 Other: Voiding Method Urinal Urinal # Voids 1 Weight 58.967 kg Vital signs are stable. General: No acute distress; NG tube is present. HEENT: Head exam is unremarkable. Lungs: Bilateral breath sounds present; no rhonchi, wheezes, or rales. Heart: Rate and rhythm are regular. Abdomen: Distended, tender. Extremities: No edema present. Results - Lab Results Most recent lab results Calcium 9.1 mg/dL (8.4-10.2) 02/10/24 13:17 02/12/24 05:13 02/12/24 05:13 Assessment and Plan Assessment: 1. Acute kidney injury. Secondary to ATN from hypotension. No obstruction noted on CT. Check UA. Continue with IV fluids. Status post cardiac c atheterization 02/10/2024. 2. Hyperkalemia. Associated with acute kidney injury. Rule out adrenal insufficiency. 3. Hypovolemic hyponatremia. Maintained on normal saline. 4. NSTEMI. 5. Cardiomyopathy. EF 15-20% on echo 02/10/2024. 6. Small bowel obstruction. Being followed by surgery. Currently with NG tube. Plan: Check UA. Repeat labs in the morning. Bladder scan. Consider Ríos if urinary retention present. Check cortisol. Maintain IV fluids. Maintain antibiotics, as per primary. Thank you for the consultation. We will continue to monitor him during his hospital stay. Patient is seen and examined. Agree with residents findings, assessment and plan.
[2024-02-11] MEDS ORDERED: DEXTROSE 50% SYRINGE 50 ML IVP PRN ×2 (13:05)
--- NOTE | 2024-02-11 13:19 | P.PN ---
Subjective Progress Note Date: 02/11/24 Hospital course: Patient is a very pleasant 73-year-old male with a past medical history of CAD status post stenting, lung cancer currently undergoing chemotherapy, COPD with chronic respiratory failure 3 L home oxygen dependent, and severe protein calorie malnutrition with cachexia. He presented to the emergency department on 02/10/2024 with a chief complaint of abdominal pain. Upon arrival to our facility, patient underwent evaluation in the emergency department. Vital signs upon arrival show blood pressure 76/61, heart rate 100, respiratory rate 20, te mp 98.7 F, and SpO2 of 88% on 4 L. EKG was completed showing sinus tachycardia at [address] elevation and T wave inversion in inferior and anterior leads II, III, aVF and V2 through V4. Labs were completed and reviewed. CBC showing hemoglobin 11.9 and platelet count of 560. BMP showing hyponatremia with sodium 129, hyperkalemia with potassium of 5.5, and prerenal azotemia with BUN of 48, creatinine of 1.18, GFR of 62. Liver profile showing hypoalbuminemia with albumin of 3.4. Troponin was elevated at 56.800. CT abdomen and pelvis showing bilateral lower lobe airspace infiltrates with pleural effusion left greater than right and marked distal small bowel obstruction. NG-tube was inserted to low intermittent suction and patient was placed on heparin infusion for treatment of NSTEMI. Patient admitted under our services with consultation to cardiology, general surgery, and pulmonology. Physical exam: Patient was seen and fully evaluated at bedside. Patient currently resting reports of diffuse abdominal pain/discomfort otherwise denies having any chest pain, shortness of breath, nausea, or vomiting. NG tube remains in place. Vital signs reviewed and stable. General: Nontoxic, no distress and appears stated age. Derm: Skin warm and dry, normal coloration for ethnicity. Head: Atraumatic, normocephalic and symmetric. Eyes: EOMs intact, no lid lag, and anicteric sclera Mouth: no lip lesions, mucus membranes moist Cardiovascular: regular rate and rhythm with normal S1S2, no murmur, positive posterior tibial pulses bilaterally, and cap refill < 2 seconds. Lungs: Respirations even, regular, and unlabored on supplemental oxygen. Lungs diminished with no rhonchi, no rales, no wheezing, and no accessory muscle usage. Abdominal: Taut, distended with diffuse tenderness. NG-tube in place to low intermittent suction Ext: ROM intact. No gross muscle atrophy, no edema, no contractures Neuro: Speech clear, face symmetrical and CN II-XII grossly intact with no noted focal neuro deficits Psych: Alert and oriented to person, place, time, and situation. Appropriate and pleasant affect. Assessment and Plan of Care: Small bowel obstruction -Continue NG tube to low intermittent suction. -General surgery following, planning to take patient for exploratory laparotomy with lysis of adhesions later today with Dr. Vu. -Symptomatic care and pain management. -Gentle IV fluid hydration with 0.9% normal saline at 75 cc/h, caution secondary to severely reduced EF of 15 to 20%. -Szino-hs-[id number] glucose checks every 6 hours while NPO, and glycemic protocol in place. -Aspiration precautions in place. Acute Coronary Syndrome Severe ischemic cardiomyopathy with EF 15-20% -Cardiology following, took patient for cardiac cath on 02/10/2024 showing calcified right and left coronary system with BRAZING MACHINE TENDER of the RCA and critical disease involving the left circumflex and severe disease involving the LAD recommending medical management at this time as patient has collateral blood flow. -Pt to remain on continuous Telemetry monitoring -Aspirin 81 mg daily, atorvastatin 40 mg nightly, and metoprolol 12.5 mg twice daily. -Lipid profile with a.m. labs. -Echocardiogram completed revealing severely reduced EF of 15 to 20% with hypokinesis involving anterior wall and anteroseptal wall. Acute kidney injury with anuria Metabolic alkalosis Hyponatremia, improving Hyperkalemia, resolved -Nephrology following. -Continue Ríos catheter for strict monitoring of I's and O's. -Continue with gentle IV fluid hydration with 0.9% normal saline at 75 cc/h. Lung cancer COPD with chronic hypoxic respiratory failure -Pulmonology following, reviewed documentation in chart -Continue supplemental oxygen and titrated as needed to maintain SPO2 equal to or greater than 90% (baseline O2 3 L) -Telemetry monitoring. -Monitor pulse-oximetry -Duonebs scheduled 4 times daily and as needed for SOB and/or wheezing. -Symbicort 80-4.5 mcg inhaler 2 puffs twice daily -Patient to resume care/treatment from outpatient oncologist with [facility] after discharge. Data and imaging reviewed: Echocardiogram completed and report reviewed revealing severely reduced EF of 15 to 20% with hypokinesis involving anterior wall and anteroseptal wall. Morning labs reviewed. BMP showing slight improvement of hyponatremia from 08 19-08 21 this morning and resolution of hyperkalemia with potassium of 4.6. However showing persistent metabolic alkalosis with chloride of 98, bicarb of 33 and anion gap of 8 and worsening renal function with BUN of 51, creatinine of 1.30, and GFR of 55. Vital signs reviewed. Blood pressure 100/66, heart rate 114, respiratory rate 18, temp 98.4 F, and SpO2 of 86% on 4 L increased to 6 L with SpO2 increasing to 94%. Patient with very poor and severely guarded prognosis.. CODE STATUS: Full code DVT prophylaxis: Subcu heparin Anticipated discharge date: Pending clinical course Anticipated discharge place: Pending clinical course Patient was seen independently by Nurse Pracitioner. This document was prepared using [employer] dictation software. Please allow for errors in cardiovascular rn, while rare they do occur. Objective - Vital Signs Vital signs: Vital Signs Temp 98.4 F 02/11/24 08:00 Pulse 101 H 02/11/24 09:09 Resp 18 02/11/24 08:14 BP 100/66 02/11/24 08:00 Pulse Ox 94 L 02/11/24 09:00 FiO2 Intake & Output 02/10/24 02/11/24 02/11/24 18:59 06:59 18:59 Intake Total 67.572 2.241 59.556 Output Total 1000 300 Balance -932.428 -297.759 59.556 Weight 58.967 kg 58.967 kg Intake: IV 50 Intake, IV Titration 17.572 2.241 59.556 Amount Heparin Sod,Pork in 0.45% 17.572 2.241 59.556 NaCl 25,000 unit In 0.45 % NaCl 1 250ml.bag @ 12 UNITS/KG/HR 7.076 mls/hr IV .Q24H [facility] Rx#: [id number] Oral 0 Output: Gastric Drainage 1000 Urine 300 Other: Voiding Method Urinal # Voids 1 - Labs CBC & Chem 7: 02/10/24 13:17 02/10/24 13:17 Labs: Abnormal Lab Results - Last 24 Hours (Table) 02/10/24 02/10/24 02/10/24 Range/Units 13:17 13:17 13:17 RBC 3.73 L (4.30-5.90) m/uL Hgb 11.9 L (13.0-17.5) gm/dL Hct 37.0 L (39.0-53.0) % RDW 17.6 H (11.5-15.5) % Plt Count 560 H (150-450) k/uL Lymphocytes # 0.4 L (1.0-4.8) k/uL APTT (22.0-30.0) sec Sodium 129 L (137-145) mmol/L Potassium 5.5 H (3.5-5.1) mmol/L Chloride 89 L (98-107) mmol/L Carbon Dioxide 36 H (22-30) mmol/L BUN 48 H (9-20) mg/dL Glucose 152 H (74-99) mg/dL AST 128 H (17-59) U/L Troponin I 56.800 H* (0.000-0.034) ng/mL Total Protein 6.0 L (6.3-8.2) g/dL Albumin 3.4 L (3.5-5.0) g/dL 02/10/24 Range/Units 20:29 RBC (4.30-5.90) m/uL Hgb (13.0-17.5) gm/dL Hct (39.0-53.0) % RDW (11.5-15.5) % Plt Count (150-450) k/uL Lymphocytes # (1.0-4.8) k/uL APTT 21.3 L (22.0-30.0) sec Sodium (137-145) mmol/L Potassium (3.5-5.1) mmol/L Chloride (98-107) mmol/L Carbon Dioxide (22-30) mmol/L BUN (9-20) mg/dL Glucose (74-99) mg/dL AST (17-59) U/L Troponin I (0.000-0.034) ng/mL Total Protein (6.3-8.2) g/dL Albumin (3.5-5.0) g/dL
[2024-02-11] MEDS: IV FLUID CONTINUATION 1,000 ML IV ONE (14:17)
[2024-02-11 14:27] LABS: Appearance,Urine Clear (Clear); Bacteria,Urine Rare /hpf; Bilirubin,Urine Negative (Negative); Blood,Urine Negative (Negative); Color,Urine Yellow; Glucose,Urine (UA) Negative (Negative); Ketones,Urine 1+ (Negative); Leukocyte Esterase,Urine Negative (Negative); Nitrite,Urine Negative (Negative); PH, Urine 5.5 (5.0-8.0); Protein,Urine 1+ (Negative); RBC,Urine 9 /hpf (0-5); Squamous Epithelial Cell,Urine 1 /hpf (0-4); Urobilinogen,Urine <2.0 mg/dL (<2.0); WBC,Urine 3 /hpf (0-5)
[2024-02-11 14:45] LABS: Glucose,Whole Blood 103 mg/dL (70-110)
[2024-02-11 14:49] LABS: Specific Gravity,Urine >1.050 (1.001-1.035)
[2024-02-11] MEDS ORDERED: diphenhydrAMINE 50 MG/ML 1 ML VIAL ONE (15:26)
[2024-02-11] MEDS ORDERED: ETOMIDATE 2 MG/ML 10 ML VIAL ONE (15:26)
[2024-02-11] MEDS ORDERED: SUCCINYLCHOLINE CHLORIDE 200 MG/10 ML VIAL IV ONE (15:26)
[2024-02-11] MEDS ORDERED: ROCURONIUM 10 MG/ML (5 ML VIAL) IV ONE (15:26)
[2024-02-11] MEDS ORDERED: PHENYLEPHRINE 10 MG/ML VIAL ONE (15:26)
[2024-02-11] MEDS ORDERED: LIDOCAINE 1% INJ 10MG/ML (20 ML MDV) ONE (15:26)
[2024-02-11] MEDS ORDERED: MIDAZOLAM 2 MG/2 ML VIAL ONE (15:26)
[2024-02-11] MEDS: LACTATED RINGERS 1,000 ML IV ONE ×2 (15:52→21:38)
--- NOTE | 2024-02-11 16:54 | P.OP ---
Date of Procedure: 02/11/24 Preoperative Diagnosis: High-grade small bowel obstruction Postoperative Diagnosis: High-grade small bowel obstruction related to internal hernia right lower quadrant due to adhesions Procedure(s) Performed: Exploratory laparotomy Lysis of adhesions Anesthesia: TOYIN Surgeon: Logan Vu Estimated Blood Loss (ml): 10 Pathology: none sent Condition: stable Disposition: PACU Operative Findings: Massively distended stomach and small bowel. Over 4 L of enteric contents aspirated via NG tube Description of Procedure: The patient was placed on the operative table in the supine position. He received general endotracheal tube anesthesia. His abdomen was prepped and draped in usual sterile fashion. The abdomen subsided. The abdomen was incised in the midline. There is a previous low midline scar. The bowel was massively dilated. The abdominal wall retractor placed the wound. The adhesions to the anterior yodit wall were lysed with sharp dissection. The bowel was then followed distally in the area obstruction was seen in the right lower quadrant. There appeared to be an internal hernia. The adhesions were lysed. The internal hernia release. The bowel appeared to be viable. At this point the stomach was examined. The stomach was massively dilated. The orogastric tube was exchanged for a new tube and then the stomach was aspirated. Approximately 4 L of enteric contents were aspirated through the NG tube. The stomach was decompressed. The small bowel was partially decompressed. At this point the abdomen is irrigated there is no bleeding seen. The fascia was closed with looped #1 PDS suture. Skin was closed marta. Patient tolerated procedure well. He was sent back to the ICU in critical condition on the ventilator.
[2024-02-11] MEDS: NOREPINEPHRINE 4 MG in SODIUM CHLORIDE 0.9% 250 ML IV SCH (17:20)
[2024-02-11 17:22] LABS: Glucose,Whole Blood 106 mg/dL (70-110)
[2024-02-11 17:46] LABS: ABG Base Excess 3.1 mmol/L; ABG HCO3 33 mmol/L (21-25); ABG Oxygen Saturation 99.5 % (94-97); ABG PH 7.21 (7.35-7.45); ABG PO2 171 mmHg (83-108); ABG TCO2 35 mmol/L (19-24)
[2024-02-11 17:51] LABS: ABG PCO2 83 mmHg (35-45)
--- NOTE | 2024-02-11 18:03 | XR ---
EXAMINATION TYPE: XR chest 1V portable DATE OF EXAM: 02/11/2024 HISTORY: Shortness of breath. COMPARISON: 02/10/2024 TECHNIQUE: Single view of the chest is submitted. FINDINGS: Demonstrated are scattered senescent parenchymal change. Endotracheal tube with distal tip 4.5 cm from the rashaun. NG tube is seen coursing into the stomach. Left IJ central venous line with distal tip overlying the SVC. No pneumothorax. Right-sided MediPort catheter is in place as well. Patchy left perihilar and basilar infiltrates are noted left greater than right. Suspect small effusi ons. The heart is stable. Hilar and mediastinal structures are within normal limits. Degenerative changes are seen of the dorsal spine. IMPRESSION: 1. Patchy left perihilar and basilar infiltrates are noted left greater than right. Suspect small ef fusions. 2. Indwelling tubes and catheters as noted.
[2024-02-11 20:45] LABS: Glucose,Whole Blood 93 mg/dL (70-110)
[2024-02-11 21:24] LABS: ALT 23 U/L (4-49); AST 52 U/L (17-59); African American GFR (CKD) 48 (>60 ml/min/1.73 sqM); Albumin 2.4 g/dL (3.5-5.0); Alkaline Phosphatase 56 U/L (38-126); Anion Gap 3 mmol/L; Blood Urea Nitrogen 46 mg/dL (9-20); Calcium 7.7 mg/dL (8.4-10.2); Carbon Dioxide 33 mmol/L (22-30); Chloride 95 mmol/L (98-107); Glucose 82 mg/dL (74-99); Non-African American GFR(CKD) 42 (>60 ml/min/1.73 sqM); Potassium 3.8 mmol/L (3.5-5.1); Sodium 131 mmol/L (137-145); Total Bilirubin 0.8 mg/dL (0.2-1.3); Total Protein 4.6 g/dL (6.3-8.2)
[2024-02-11] MEDS: GABAPENTIN 100 MG CAP PO SCH (22:00)
[2024-02-11] MEDS: CHLORHEXIDINE GLUCONATE 15 ML CUP MUCOUS MEM SCH (22:00)
[2024-02-11] MEDS: VASOPRESSIN 20 UNIT in SODIUM CHLORIDE 0.9% 50 ML IV SCH (22:06)
[2024-02-11] MEDS: ASPIRIN 300 MG SUPP RECTAL SCH (22:42)
[2024-02-11 23:57] LABS: Glucose,Whole Blood 82 mg/dL (70-110)
[2024-02-12] MEDS: ALBUTEROL NEBULIZED 2.5 MG/3 ML INHALATION SCH (00:19)
[2024-02-12 00:30] LABS: ABG Base Excess 5.5 mmol/L; ABG HCO3 32 mmol/L (21-25); ABG Oxygen Saturation 98.3 % (94-97); ABG PCO2 58 mmHg (35-45); ABG PH 7.35 (7.35-7.45); ABG PO2 102 mmHg (83-108); ABG TCO2 34 mmol/L (19-24); Allen Test Performed? Yes
[2024-02-12] MEDS: SODIUM CHLORIDE 0.9% 500 ML 500 ML IV ONE (01:58)
[2024-02-12] MEDS: HYDROCORTISONE SUCCINATE 100 MG/2 ML VIAL IV STA (02:43)
[2024-02-12] MEDS: SODIUM CHLORIDE 0.9% 1,000 ML IV ONE (03:17)
[2024-02-12 05:24] LABS: Anisocytosis Slight; HCT 29.6 % (39.0-53.0); Hypochromasia Marked; MCHC 31.2 g/dL (31.0-37.0); MCV 102.7 fL (80.0-100.0); Macrocytosis Moderate; Mean Platelet Volume 7.8; Platelet Count 412 k/uL (150-450); RBC 2.88 m/uL (4.30-5.90); RDW 17.9 % (11.5-15.5); WBC 17.9 k/uL (3.8-10.6)
[2024-02-12 05:35] LABS: ALT 20 U/L (4-49); AST 43 U/L (17-59); African American GFR (CKD) 54 (>60 ml/min/1.73 sqM); Albumin 2.1 g/dL (3.5-5.0); Alkaline Phosphatase 51 U/L (38-126); Anion Gap 7 mmol/L; Blood Urea Nitrogen 44 mg/dL (9-20); Calcium 7.2 mg/dL (8.4-10.2); Carbon Dioxide 27 mmol/L (22-30); Chloride 99 mmol/L (98-107); Glucose 66 mg/dL (74-99); Magnesium 1.7 mg/dL (1.6-2.3); Non-African American GFR(CKD) 47 (>60 ml/min/1.73 sqM); Potassium 4.1 mmol/L (3.5-5.1); Sodium 133 mmol/L (137-145); Total Bilirubin 0.9 mg/dL (0.2-1.3); Total Protein 4.1 g/dL (6.3-8.2)
[2024-02-12 05:36] LABS: Glucose,Whole Blood 78 mg/dL (70-110)
[2024-02-12 05:38] LABS: HGB 9.2 gm/dL (13.0-17.5)
--- NOTE | 2024-02-12 07:52 | XR ---
EXAMINATION TYPE: XR chest 1V portable DATE OF EXAM: 02/12/2024 COMPARISON: 02/11/2020 HISTORY: Shortness of breath TECHNIQUE: Single frontal view of the chest is obtained. FINDINGS: ET tube and NG-tube, central line Mediport stable. Emphysematous changes with bilateral co nsolidation and pleural effusion stable. Degenerative changes spine and arthropathy of the shoulders. . Elevated left hemidiaphragm stable. IMPRESSION: Bilateral consolidation and pleural effusion stable.
[2024-02-12] MEDS ORDERED: HYDROCORTISONE SUCCINATE 100 MG/2 ML VIAL IV SCH (08:00)
[2024-02-12] MEDS: NOREPINEPHRINE 32 MG in SODIUM CHLORIDE 0.9% 218 ML IV SCH (08:20)
--- NOTE | 2024-02-12 08:20 | P.PN ---
Subjective Progress Note Date: 02/12/24 This is a 73-year-old gentleman with a past medical history significant for history of smoking and COPD and chronic hypoxic respiratory failure as well as history of lung cancer currently on chemotherapy with unknown details at this point. We consulted to see the patient in the emergency room for further evaluation of abnormal cardiac enzymes as well as abnormal EKG. The patient presented to the hospital with long cardiovascular symptoms including abdominal discomfort was associated with nausea. For some reasons he underwent further evaluation including an EKG and that showed sinus mechanism with ST segment elevation in the anteroseptal leads with already Q waves in the anteroseptal leads as well. Subsequently troponin was performed and came to be also abnormal. Also on examination the patient was found to have abdominal wall distention and abdominal tenderness with further evaluation showed small bowel obstruction which was extremely severe. The patient did not report any symptoms of chest pain or chest discomfort or any dizziness or lightheadedness or presyncope or syncope and no history of CAD or heart failure or cardiac arrhythmia and never seen any drag out worker before. Subsequently initially medical treatment only was advised giving the absence of any chest pain or chest discomfort as well as the patient probably completed an infarct. The patient was seen after that by the surgical team and he was deemed to be not needing any surgery at this point. Further evaluation was performed including an echo and that showed severe cardiomyopathy with EF around 20%. Subsequently patient underwent a heart catheterization which revealed chronic total occlusion of the RCA which fills by collaterals from the left coronary system along with severe disease involving the LCx and severe disease involving the LAD but both the LCx and LAD have DEB-3 flow. I felt at this point doing percutaneous revascularization will not help the patient in case he need to have surgery down the line. With that being said I am going to maximize medical treatment at this point and optimize medical treatment for cardiomyopathy as well as CAD and acute coronary syndrome. The examination revealed mild sinus tachycardia with soft blood pressure and diminished breathing sounds bilaterally and no edema was noted in the lower extremities. February 12, 2024 The patient was seen and evaluated this morning. He underwent abdominal surgery yesterday with lysis of adhesion. Currently he is intubated on mechanical ventilation but he is hypotensive requiring norepinephrine at high dose. I am going to start the patient on dobutamine and try to come down with norepinephrine giving the cardiomyopathy and low EF and the acute coronary syndrome. Otherwise the urine output is marginal. The examination is remarkable for intubated patient with diminished breathing sounds bilaterally and no edema was noted in the lower extremities Assessment Status post abdominal surgery Acute coronary syndrome Severe CAD Severe cardiomyopathy Multiple comorbid conditions Plan Continue the current medical regimen Start the patient on dobutamine Follow-up with the patient Objective - Vital Signs Vital signs: Vital Signs Temp 99.8 F H 02/12/24 04:00 Pulse 101 H 02/12/24 07:45 Resp 16 02/12/24 07:45 BP 96/63 02/12/24 07:00 Pulse Ox 100 02/12/24 07:45 FiO2 60 02/12/24 04:06 Intake & Output 02/11/24 02/12/24 02/12/24 18:59 06:59 18:59 Intake Total 0815.566 0236.744 85 Output Total 170 2763 10 Balance 9862.399 2848.744 75 Weight 60.45 kg Intake: IV 1425 3005 85 0.9 Sodium Chloride 80 10 carrier Lactated Ringers 1,000 ml 1000 @ 999 mls/hr IV .Q1H1M [facility] Rx#:[id number] Piperacillin-Tazobactam 3 100 .375 gm In Sodium Chloride 0.9% 100 ml @ 25 mls/hr IVPB Q8HR [facility] Rx# :[id number] Sodium Chloride 0.9% 1, 575 825 75 000 ml @ 75 mls/hr IV . [id number] [facility] Rx#:[id number] Sodium Chloride 0.9% 1, 1000 000 ml @ 999 mls/hr IV . Q1H1M [facility] Rx#:[id number] Intake, IV Titration 73.694 850.744 Amount Heparin Sod,Pork in 0.45% 59.556 NaCl 25,000 unit In 0.45 % NaCl 1 250ml.bag @ 12 UNITS/KG/HR 7.076 mls/hr IV .Q24H [facility] Rx#: [id number] Norepinephrine 4 mg In 6.178 653.807 Sodium Chloride 0.9% 250 ml @ 0.03 MCG/KG/MIN 6.74 mls/hr IV .Q24H [facility] Rx#: [id number] Vasopressin 20 unit In 31.977 Sodium Chloride 0.9% 50 ml @ 0.03 UNITS/MIN 4.59 mls/hr IV .Q11H7M [facility] Rx# :[id number] propofoL 1,000 mg In 7.960 164.960 Empty Bag 1 bag @ 15 MCG/ KG/MIN 5.307 mls/hr IV . [id number] [facility] Rx#:[id number] Oral 120 Output: Gastric Drainage 2650 Urine 160 113 10 Estimated Blood Loss 10 Other: Voiding Method Indwelling Catheter Indwelling Catheter # Voids 1 ABP, PAP, CO, CI - Last Documented Arterial Blood Pressure 93/57 - Labs CBC & Chem 7: 02/12/24 05:13 02/12/24 05:13 Labs: Abnormal Lab Results - Last 24 Hours (Table) 02/11/24 02/11/24 02/11/24 Range/Units 11:31 14:10 17:45 WBC (3.8-10.6) k/uL RBC (4.30-5.90) m/uL Hgb (13.0-17.5) gm/dL Hct (39.0-53.0) % MCV (80.0-100.0) fL RDW (11.5-15.5) % ABG pH 7.21 L (7.35-7.45) ABG pCO2 83 H* (35-45) mmHg ABG pO2 171 H (83-108) mmHg ABG HCO3 33 H (21-25) mmol/L ABG Total CO2 35 H (19-24) mmol/L ABG O2 Saturation 99.5 H (94-97) % Sodium 131 L (137-145) mmol/L Chloride 90 L (98-107) mmol/L Carbon Dioxide 33 H (22-30) mmol/L BUN 51 H (9-20) mg/dL Creatinine 1.30 H (0.66-1.25) mg/dL Glucose (74-99) mg/dL Calcium (8.4-10.2) mg/dL Total Protein (6.3-8.2) g/dL Albumin (3.5-5.0) g/dL Cortisol 70.8 H (3.1-22.4) UG/DL Ur Specific [place] >1.050 H (1.001-1.035) Urine Protein 1+ H (Negative) Urine Ketones 1+ H (Negative) Urine RBC 9 H (0-5) /hpf Urine Bacteria Rare H (None) /hpf 02/11/24 02/12/24 02/12/24 Range/Units 20:40 00:25 05:13 WBC 17.9 H (3.8-10.6) k/uL RBC 2.88 L (4.30-5.90) m/uL Hgb 9.2 L D (13.0-17.5) gm/dL Hct 29.6 L (39.0-53.0) % MCV 102.7 H (80.0-100.0) fL RDW 17.9 H (11.5-15.5) % ABG pH (7.35-7.45) ABG pCO2 58 H (35-45) mmHg ABG pO2 (83-108) mmHg ABG HCO3 32 H (21-25) mmol/L ABG Total CO2 34 H (19-24) mmol/L ABG O2 Saturation 98.3 H (94-97) % Sodium 131 L (137-145) mmol/L Chloride 95 L (98-107) mmol/L Carbon Dioxide 33 H (22-30) mmol/L BUN 46 H (9-20) mg/dL Creatinine 1.63 H (0.66-1.25) mg/dL Glucose (74-99) mg/dL Calcium 7.7 L (8.4-10.2) mg/dL Total Protein 4.6 L (6.3-8.2) g/dL Albumin 2.4 L (3.5-5.0) g/dL Cortisol (3.1-22.4) UG/DL Ur Specific [place] (1.001-1.035) Urine Protein (Negative) Urine Ketones (Negative) Urine RBC (0-5) /hpf Urine Bacteria (None) /hpf 02/12/24 Range/Units 05:13 WBC (3.8-10.6) k/uL RBC (4.30-5.90) m/uL Hgb (13.0-17.5) gm/dL Hct (39.0-53.0) % MCV (80.0-100.0) fL RDW (11.5-15.5) % ABG pH (7.35-7.45) ABG pCO2 (35-45) mmHg ABG pO2 (83-108) mmHg ABG HCO3 (21-25) mmol/L ABG Total CO2 (19-24) mmol/L ABG O2 Saturation (94-97) % Sodium 133 L (137-145) mmol/L Chloride (98-107) mmol/L Carbon Dioxide (22-30) mmol/L BUN 44 H (9-20) mg/dL Creatinine 1.48 H (0.66-1.25) mg/dL Glucose 66 L (74-99) mg/dL Calcium 7.2 L (8.4-10.2) mg/dL Total Protein 4.1 L (6.3-8.2) g/dL Albumin 2.1 L (3.5-5.0) g/dL Cortisol (3.1-22.4) UG/DL Ur Specific [place] (1.001-1.035) Urine Protein (Negative) Urine Ketones (Negative) Urine RBC (0-5) /hpf Urine Bacteria (None) /hpf Microbiology - Last 24 Hours (Table) 02/10/24 14:45 Blood Culture - Preliminary Blood 02/10/24 14:30 Blood Culture - Preliminary Blood
[2024-02-12] MEDS ORDERED: DOBUTamine DRIP 500 MG in DEXTROSE/WATER 1 250ML.BAG IV SCH (08:30)
[2024-02-12] MEDS: BUDESONIDE 1 MG/2 ML NEBU INHALATION SCH (09:34)
[2024-02-12] MEDS: FORMOTEROL FUMARATE 20 MCG/2 ML NEBU INHALATION SCH (09:34)
[2024-02-12] MEDS: PANTOPRAZOLE 40 MG/10 ML VIAL IVP SCH (09:51)
--- NOTE | 2024-02-12 10:32 | P.PN ---
Subjective Progress Note Date: 02/12/24 Patient is a 73-year-old white male with past medical history significant for COPD, chronic hypoxemic respiratory failure, lung cancer undergoing current systemic treatment, former tobacco smoker, among other things. Patient states that he has lung cancer diagnosed approximately 6 months ago at [facility] [place]. He follows with an out-of-town oncologist, Dr. Rincon, who directs his treatments. He is chronically oxygen dependent on 4 L/min nasal cannula. Quit smoking over 2 years ago. He presents to the emergency department yesterday afternoon complaining of severe periumbilical abdominal pain, which reportedly started on . His appetite has been poor. Last bowel movement was rod roximately 4 days ago, and small/liquid. Denies any cookie blood loss. Abdominal/pelvis CT demonstrated marked distal small bowel obstruction with an uncertain transition point. No free intraperitoneal air or fluid. No definitive masses. Incidentally, bilateral lower lobe pleural effusions were s een. Questionable airspace infiltrates or atelectasis. During his initial workup in the emergency department, he was noted to have diffuse ST segment elevations, as well as, significantly elevated cardiac troponin. Denies prior history of coronary artery disease, prior cardiac stents, or heart attacks. He denies any chest pain, acute shortness of breath, nausea, diaphoresis. Does admit some increased bilateral lower extremity/ankle edema. CBC: WBC count 7, hemoglobin 11.9, hematocrit 37, platelets 560. CMP: Sodium 129, potassium 5.5, chloride 89, serum bicarb 36, BUN 48, creatinine 1.18, glucose 152. AST 128, ALT 39, ALP 71. Troponin 56.8. EKG showing diffuse ST elevation in leads II, III, aVF; V3, V4, V5. He did go to the [facility] yesterday evening which demonstrated chronic total occlusion of the RCA, critical disease involving the left circumflex, and severe disease involving the LAD. Cardiology is treating the patient medically at this point. Follow-up echocardiogram estimating severely decreased left ventricular ejection fraction of 15 to 20%. There is hypokinesis involving the anterior wall and anterior septum. Patient is currently on the cardiac stepdown unit. He appears comfortable lying in bed. Cachectic and frail. He is currently on 2 L/min nasal cannula, in no acute respiratory distress. SpO2 is 93%. He is slightly tachycardic. Blood pressure normotensive. No current chest pain. Currently on heparin infusion per protocol. Normal saline infusing at 75 mL/h. His abdomen remains distended. Abdominal pain has improved, currently rated 6/10 on a 10 point numerical scale. This is a generalized abdominal discomfort. No nausea or vomiting. He does have an NG tube to low intermittent suction for decompression it is draining a brown/fecal like material. I am told almost 1 L of output was initially drained on insertion of the nasogastric tube. He is currently NPO. General surgery has evaluated this patient, no plans for immediate surgical intervention, due to patient's acute AK. He is currently covered empirically on Zosyn. Reportedly has history of unknown penicillin allergy as a child. Prognosis is guarded. The patient is seen today February 12, 2024 in follow-up in the intensive care unit. He did undergo an exploratory laparotomy with lysis of adhesions yesterday. No significant bowel schema was noted. He did did have 4 L of fluid removed from his stomach however. Postoperative day #1. He remains intubated on the [facility] anical ventilator currently on assist-control mode at a rate of 16, tidal volume 400, FiO2 60% and a PEEP of 8. Morning blood gases reveal a PaO2 of 102, pCO2 58, pH 7.35 performed on 70% FiO2. He remains sedated on propofol at 35 mcg/kg/min. He is on normal saline at 75 MLS per hour. He is requiring norepinephrine at 20 mcg/min. He is also on vasopressin at 0.03 units/min. He is currently in sinus rhythm. Chest x-ray reveals endotracheal tube, nasogastric tube central line Mediport all in good position. Stable elevated left hemidiaphragm. Bilateral consolidation and pleural effusions are stable. Blood cultures are pending. White count 17.9. Hemoglobin 9.2. Platelets 412. Sodium 133. Potassium 4.1. Bicarb 27. BUN 44. Creatinine 1.48. Glucose 66. Cortisol level was 28.5. He is currently in a 2.5 L positive balance. He is on DuoNeb inhalations, Pulmicort and Perforomist inhalations. Antibiotics in the form of Zosyn. Heparin for DVT prophylaxis. Objective - Vital Signs Vital signs: Vital Signs Temp 99.8 F H 02/12/24 04:00 Pulse 102 H 07/24/24 09:58 Resp 22 02/12/24 09:00 BP 108/74 02/12/24 09:15 Pulse Ox 100 02/12/24 09:15 FiO2 50 02/12/24 09:37 Intake & Output 02/11/24 02/12/24 02/12/24 18:59 06:59 18:59 Intake Total 4142.246 6943.744 553.518 Output Total 170 2763 75 Balance 5312.802 8863.744 478.518 Weight 60.45 kg Intake: IV 1425 3005 267 0.9 Sodium Chloride 80 30 carrier Lactated Ringers 1,000 ml 1000 @ 999 mls/hr IV .Q1H1M [facility] Rx#:[id number] Piperacillin-Tazobactam 3 100 .375 gm In Sodium Chloride 0.9% 100 ml @ 25 mls/hr IVPB Q8HR [facility] Rx# :[id number] Pressure Bag (0.9 Sodium 12 Chloride) Sodium Chloride 0.9% 1, 575 825 225 000 ml @ 75 mls/hr IV . [id number] [facility] Rx#:[id number] Sodium Chloride 0.9% 1, 1000 000 ml @ 999 mls/hr IV . Q1H1M [facility] Rx#:[id number] Intake, IV Titration 73.694 850.744 286.518 Amount Heparin Sod,Pork in 0.45% 59.556 NaCl 25,000 unit In 0.45 % NaCl 1 250ml.bag @ 12 UNITS/KG/HR 7.076 mls/hr IV .Q24H [facility] Rx#: [id number] Norepinephrine 4 mg In 6.178 653.807 253.909 Sodium Chloride 0.9% 250 ml @ 0.03 MCG/KG/MIN 6.74 mls/hr IV .Q24H [facility] Rx#: [id number] Vasopressin 20 unit In 31.977 Sodium Chloride 0.9% 50 ml @ 0.03 UNITS/MIN 4.59 mls/hr IV .Q11H7M [facility] Rx# :[id number] propofoL 1,000 mg In 7.960 164.960 32.609 Empty Bag 1 bag @ 15 MCG/ KG/MIN 5.307 mls/hr IV . [id number] [facility] Rx#:[id number] Oral 120 Output: Gastric Drainage 2650 Urine 160 113 75 Estimated Blood Loss 10 Other: Voiding Method Indwelling Catheter Indwelling Catheter # Voids 1 ABP, PAP, CO, CI - Last Documented Arterial Blood Pressure 107/58 - Exam GENERAL EXAM: Intubated, sedated 73-year-old male patient, on FiO2 at 60% and a PEEP of 8, in no apparent distress. HEAD: Normocephalic. EYES: Normal reaction of pupils, equal size. NOSE: Clear with pink turbinates. THROAT: Oral endotracheal and gastric tube secured in place. No erythema or exudates. NECK: No masses, no JVD. CHEST: No chest wall deformity. Right subclavian Mediport in place. LUNGS: Equal air entry with basilar crackles. CVS: S1 and S2 normal with no audible murmur, regular rhythm. ABDOMEN: Abdominal dressing dry and intact. No hepatosplenomegaly, normal bowel sounds, no guarding or rigidity. SPINE: No scoliosis or deformity SKIN: No rashes CENTRAL NERVOUS SYSTEM: Sedated, tone is normal in all 4 extremities. EXTREMITIES: There is no peripheral edema. No clubbing, no cyanosis. Peripheral pulses are intact. - Labs CBC & Chem 7: 02/12/24 05:13 02/12/24 05:13 Labs: Abnormal Lab Results - Last 24 Hours (Table) 02/11/24 02/11/24 02/11/24 Range/Units 11:31 14:10 17:45 WBC (3.8-10.6) k/uL RBC (4.30-5.90) m/uL Hgb (13.0-17.5) gm/dL Hct (39.0-53.0) % MCV (80.0-100.0) fL RDW (11.5-15.5) % ABG pH 7.21 L (7.35-7.45) ABG pCO2 83 H* (35-45) mmHg ABG pO2 171 H (83-108) mmHg ABG HCO3 33 H (21-25) mmol/L ABG Total CO2 35 H (19-24) mmol/L ABG O2 Saturation 99.5 H (94-97) % Sodium 131 L (137-145) mmol/L Chloride 90 L (98-107) mmol/L Carbon Dioxide 33 H (22-30) mmol/L BUN 51 H (9-20) mg/dL Creatinine 1.30 H (0.66-1.25) mg/dL Glucose (74-99) mg/dL Calcium (8.4-10.2) mg/dL Total Protein (6.3-8.2) g/dL Albumin (3.5-5.0) g/dL Cortisol 70.8 H (3.1-22.4) UG/DL Ur Specific [place] >1.050 H (1.001-1.035) Urine Protein 1+ H (Negative) Urine Ketones 1+ H (Negative) Urine RBC 9 H (0-5) /hpf Urine Bacteria Rare H (None) /hpf 02/11/24 02/11/24 02/12/24 Range/Units 20:40 20:40 00:25 WBC (3.8-10.6) k/uL RBC (4.30-5.90) m/uL Hgb (13.0-17.5) gm/dL Hct (39.0-53.0) % MCV (80.0-100.0) fL RDW (11.5-15.5) % ABG pH (7.35-7.45) ABG pCO2 58 H (35-45) mmHg ABG pO2 (83-108) mmHg ABG HCO3 32 H (21-25) mmol/L ABG Total CO2 34 H (19-24) mmol/L ABG O2 Saturation 98.3 H (94-97) % Sodium 131 L (137-145) mmol/L Chloride 95 L (98-107) mmol/L Carbon Dioxide 33 H (22-30) mmol/L BUN 46 H (9-20) mg/dL Creatinine 1.63 H (0.66-1.25) mg/dL Glucose (74-99) mg/dL Calcium 7.7 L (8.4-10.2) mg/dL Total Protein 4.6 L (6.3-8.2) g/dL Albumin 2.4 L (3.5-5.0) g/dL Cortisol 28.5 H (3.1-22.4) UG/DL Ur Specific [place] (1.001-1.035) Urine Protein (Negative) Urine Ketones (Negative) Urine RBC (0-5) /hpf Urine Bacteria (None) /hpf 02/12/24 02/12/24 Range/Units 05:13 05:13 WBC 17.9 H (3.8-10.6) k/uL RBC 2.88 L (4.30-5.90) m/uL Hgb 9.2 L D (13.0-17.5) gm/dL Hct 29.6 L (39.0-53.0) % MCV 102.7 H (80.0-100.0) fL RDW 17.9 H (11.5-15.5) % ABG pH (7.35-7.45) ABG pCO2 (35-45) mmHg ABG pO2 (83-108) mmHg ABG HCO3 (21-25) mmol/L ABG Total CO2 (19-24) mmol/L ABG O2 Saturation (94-97) % Sodium 133 L (137-145) mmol/L Chloride (98-107) mmol/L Carbon Dioxide (22-30) mmol/L BUN 44 H (9-20) mg/dL Creatinine 1.48 H (0.66-1.25) mg/dL Glucose 66 L (74-99) mg/dL Calcium 7.2 L (8.4-10.2) mg/dL Total Protein 4.1 L (6.3-8.2) g/dL Albumin 2.1 L (3.5-5.0) g/dL Cortisol (3.1-22.4) UG/DL Ur Specific [place] (1.001-1.035) Urine Protein (Negative) Urine Ketones (Negative) Urine RBC (0-5) /hpf Urine Bacteria (None) /hpf Microbiology - Last 24 Hours (Table) 02/10/24 14:45 Blood Culture - Preliminary Blood 02/10/24 14:30 Blood Culture - Preliminary Blood Assessment and Plan Assessment: Acute ST elevation AK, status post heart catheterization, demonstrating chronic total occlusion of the RCA, critical disease involving the left circumflex, and severe disease involving the LAD. No plans for immediate surgical intervention. Cardiology is treating the patient medically at this point. High-grade small bowel obstruction secondary to internal hernia right lower quadrant due to adhesions, status post exploratory laparotomy and lysis of adhesions. Postoperative day #1. Acute hypoxemic respiratory failure secondary to above, requiring postoperative mechanical ventilation management Acute kidney injury secondary to above Coronary artery disease, as reported above Ischemic cardiomyopathy, with an ejection fraction of 15 to 20% Hyponatremia, likely related to poor oral intake/solute intake improving Chronic obstructive pulmonary disease, appears stable History of lung cancer, reportedly currently undergoing systemic chemotherapy, last reported treatment was approximately 3 weeks ago Chronic hypoxemic respiratory failure, secondary to above, normally maintained on 4 L/min nasal cannula Former tobacco smoker Plan: The patient was seen and evaluated Chest x-ray, ABGs, labs and medications reviewed Continue to titrate down the pressors as tolerated Continue bronchodilators Heparin for DVT prophylaxis Continue antibiotics in the form of Zosyn We will continue to follow and make further recommendations based on his clinical status I have personally seen and examined the patient, performed the documentation and the assessment and plan as written. Number of minutes spent on the visit: 15.
[2024-02-12 11:24] LABS: Glucose,Whole Blood 78 mg/dL (70-110)
--- NOTE | 2024-02-12 11:34 | P.PN ---
Subjective Progress Note Date: 02/12/24 Principal diagnosis: SBO, STEMI Mr. Enciso was seen and examined. On Levophed and vasopressin. Sedated with propofol. Currently with light sedation as RN notes he is able to follow commands. Urine output 10 cc/h overnight but this appears to be improving. Maintaining MAP. Objective - Vital Signs Vital signs: Vital Signs Temp 99.8 F H 02/12/24 04:00 Pulse 111 H 02/12/24 11:00 Resp 15 02/12/24 11:00 BP 104/73 02/12/24 11:00 Pulse Ox 98 02/12/24 11:00 FiO2 50 02/12/24 10:00 Intake & Output 02/11/24 02/12/24 02/12/24 18:59 06:59 18:59 Intake Total 2134.703 4424.744 776.308 Output Total 170 2763 130 Balance 0558.422 1526.744 646.308 Weight 60.45 kg Intake: IV 1425 3005 449 0.9 Sodium Chloride 80 50 carrier Lactated Ringers 1,000 ml 1000 @ 999 mls/hr IV .Q1H1M [facility] Rx#:[id number] Piperacillin-Tazobactam 3 100 .375 gm In Sodium Chloride 0.9% 100 ml @ 25 mls/hr IVPB Q8HR [facility] Rx# :[id number] Pressure Bag (0.9 Sodium 24 Chloride) Sodium Chloride 0.9% 1, 575 825 375 000 ml @ 75 mls/hr IV . [id number] [facility] Rx#:[id number] Sodium Chloride 0.9% 1, 1000 000 ml @ 999 mls/hr IV . Q1H1M [facility] Rx#:[id number] Intake, IV Titration 73.694 850.744 327.308 Amount Heparin Sod,Pork in 0.45% 59.556 NaCl 25,000 unit In 0.45 % NaCl 1 250ml.bag @ 12 UNITS/KG/HR 7.076 mls/hr IV .Q24H [facility] Rx#: [id number] Norepinephrine 32 mg In 40.790 Sodium Chloride 0.9% 218 ml @ 0.5 MCG/KG/MIN 14. 168 mls/hr IV .[id number] [facility] Rx#:[id number] Norepinephrine 4 mg In 6.178 653.807 253.909 Sodium Chloride 0.9% 250 ml @ 0.03 MCG/KG/MIN 6.74 mls/hr IV .Q24H [facility] Rx#: [id number] Vasopressin 20 unit In 31.977 Sodium Chloride 0.9% 50 ml @ 0.03 UNITS/MIN 4.59 mls/hr IV .Q11H7M [facility] Rx# :[id number] propofoL 1,000 mg In 7.960 164.960 32.609 Empty Bag 1 bag @ 15 MCG/ KG/MIN 5.307 mls/hr IV . [id number] [facility] Rx#:[id number] Oral 120 Output: Gastric Drainage 2650 Urine 160 113 130 Estimated Blood Loss 10 Other: Voiding Method Indwelling Catheter Indwelling Catheter # Voids 1 ABP, PAP, CO, CI - Last Documented Arterial Blood Pressure 80/68 - Exam Vitals: Reviewed General: Intubated on the vent Cardiovascular: RRR, S1-S2 Lungs: Breath sounds equal, transmitted upper airway sounds Extremities: 1+ pedal edema - Labs CBC & Chem 7: 02/12/24 05:13 02/12/24 05:13 Labs: Abnormal Lab Results - Last 24 Hours (Table) 02/11/24 02/11/24 02/11/24 Range/Units 11:31 14:10 17:45 WBC (3.8-10.6) k/uL RBC (4.30-5.90) m/uL Hgb (13.0-17.5) gm/dL Hct (39.0-53.0) % MCV (80.0-100.0) fL RDW (11.5-15.5) % ABG pH 7.21 L (7.35-7.45) ABG pCO2 83 H* (35-45) mmHg ABG pO2 171 H (83-108) mmHg ABG HCO3 33 H (21-25) mmol/L ABG Total CO2 35 H (19-24) mmol/L ABG O2 Saturation 99.5 H (94-97) % Sodium 131 L (137-145) mmol/L Chloride 90 L (98-107) mmol/L Carbon Dioxide 33 H (22-30) mmol/L BUN 51 H (9-20) mg/dL Creatinine 1.30 H (0.66-1.25) mg/dL Glucose (74-99) mg/dL Calcium (8.4-10.2) mg/dL Total Protein (6.3-8.2) g/dL Albumin (3.5-5.0) g/dL Cortisol 70.8 H (3.1-22.4) UG/DL Ur Specific [place] >1.050 H (1.001-1.035) Urine Protein 1+ H (Negative) Urine Ketones 1+ H (Negative) Urine RBC 9 H (0-5) /hpf Urine Bacteria Rare H (None) /hpf 02/11/24 02/11/24 02/12/24 Range/Units 20:40 20:40 00:25 WBC (3.8-10.6) k/uL RBC (4.30-5.90) m/uL Hgb (13.0-17.5) gm/dL Hct (39.0-53.0) % MCV (80.0-100.0) fL RDW (11.5-15.5) % ABG pH (7.35-7.45) ABG pCO2 58 H (35-45) mmHg ABG pO2 (83-108) mmHg ABG HCO3 32 H (21-25) mmol/L ABG Total CO2 34 H (19-24) mmol/L ABG O2 Saturation 98.3 H (94-97) % Sodium 131 L (137-145) mmol/L Chloride 95 L (98-107) mmol/L Carbon Dioxide 33 H (22-30) mmol/L BUN 46 H (9-20) mg/dL Creatinine 1.63 H (0.66-1.25) mg/dL Glucose (74-99) mg/dL Calcium 7.7 L (8.4-10.2) mg/dL Total Protein 4.6 L (6.3-8.2) g/dL Albumin 2.4 L (3.5-5.0) g/dL Cortisol 28.5 H (3.1-22.4) UG/DL Ur Specific [place] (1.001-1.035) Urine Protein (Negative) Urine Ketones (Negative) Urine RBC (0-5) /hpf Urine Bacteria (None) /hpf 02/12/24 02/12/24 Range/Units 05:13 05:13 WBC 17.9 H (3.8-10.6) k/uL RBC 2.88 L (4.30-5.90) m/uL Hgb 9.2 L D (13.0-17.5) gm/dL Hct 29.6 L (39.0-53.0) % MCV 102.7 H (80.0-100.0) fL RDW 17.9 H (11.5-15.5) % ABG pH (7.35-7.45) ABG pCO2 (35-45) mmHg ABG pO2 (83-108) mmHg ABG HCO3 (21-25) mmol/L ABG Total CO2 (19-24) mmol/L ABG O2 Saturation (94-97) % Sodium 133 L (137-145) mmol/L Chloride (98-107) mmol/L Carbon Dioxide (22-30) mmol/L BUN 44 H (9-20) mg/dL Creatinine 1.48 H (0.66-1.25) mg/dL Glucose 66 L (74-99) mg/dL Calcium 7.2 L (8.4-10.2) mg/dL Total Protein 4.1 L (6.3-8.2) g/dL Albumin 2.1 L (3.5-5.0) g/dL Cortisol (3.1-22.4) UG/DL Ur Specific [place] (1.001-1.035) Urine Protein (Negative) Urine Ketones (Negative) Urine RBC (0-5) /hpf Urine Bacteria (None) /hpf Microbiology - Last 24 Hours (Table) 02/10/24 14:45 Blood Culture - Preliminary Blood 02/10/24 14:30 Blood Culture - Preliminary Blood Assessment and Plan Assessment: 1. SBO Status post ex lap with lysis of adhesions 02/10. On Zosyn. 2. ACS Ischemic cardiomyopathy with EF 15 to 20% LHC with YARD CLE[employer]ER of RCA and critical disease of left circumflex and LAD, cardiology advised medical management Aspirin, statin and metoprolol 3. Acute kidney injury Likely secondary to hemodynamic instability. Nephrology following. Monitor urine output. 4. Status post intubation, known history of COPD with chronic hypoxic respiratory failure Remains intubated on the vent. VTE prophylaxis: Subcu heparin GI prophylaxis: PPI
--- NOTE | 2024-02-12 11:49 | P.PN ---
Subjective Patient is seen for follow-up for acute kidney injury. Patient was taken to the warmer yesterday for lysis of adhesions and repair of hernia. He remains on high-dose pressors and patient is also intubated. Urine output was low at 5-10 mL an hour and seems to have picked up. FiO2 at 50%. Serum creatinine has improved from 1.6 to 1.4 mg/dL. Objective - Vital Signs Vital signs: Vital Signs Temp 99.8 F H 02/12/24 04:00 Pulse 111 H 02/12/24 11:00 Resp 15 02/12/24 11:00 BP 104/73 02/12/24 11:00 Pulse Ox 98 02/12/24 11:00 FiO2 50 02/12/24 11:34 Intake & Output 02/11/24 02/12/24 02/12/24 18:59 06:59 18:59 Intake Total 4800.406 3534.744 776.308 Output Total 170 2763 130 Balance 8302.170 5695.744 646.308 Weight 60.45 kg Intake: IV 1425 3005 449 0.9 Sodium Chloride 80 50 carrier Lactated Ringers 1,000 ml 1000 @ 999 mls/hr IV .Q1H1M [facility] Rx#:[id number] Piperacillin-Tazobactam 3 100 .375 gm In Sodium Chloride 0.9% 100 ml @ 25 mls/hr IVPB Q8HR [facility] Rx# :[id number] Pressure Bag (0.9 Sodium 24 Chloride) Sodium Chloride 0.9% 1, 575 825 375 000 ml @ 75 mls/hr IV . [id number] [facility] Rx#:[id number] Sodium Chloride 0.9% 1, 1000 000 ml @ 999 mls/hr IV . Q1H1M [facility] Rx#:[id number] Intake, IV Titration 73.694 850.744 327.308 Amount Heparin Sod,Pork in 0.45% 59.556 NaCl 25,000 unit In 0.45 % NaCl 1 250ml.bag @ 12 UNITS/KG/HR 7.076 mls/hr IV .Q24H [facility] Rx#: [id number] Norepinephrine 32 mg In 40.790 Sodium Chloride 0.9% 218 ml @ 0.5 MCG/KG/MIN 14. 168 mls/hr IV .[id number] [facility] Rx#:[id number] Norepinephrine 4 mg In 6.178 653.807 253.909 Sodium Chloride 0.9% 250 ml @ 0.03 MCG/KG/MIN 6.74 mls/hr IV .Q24H [facility] Rx#: [id number] Vasopressin 20 unit In 31.977 Sodium Chloride 0.9% 50 ml @ 0.03 UNITS/MIN 4.59 mls/hr IV .Q11H7M [facility] Rx# :[id number] propofoL 1,000 mg In 7.960 164.960 32.609 Empty Bag 1 bag @ 15 MCG/ KG/MIN 5.307 mls/hr IV . [id number] [facility] Rx#:[id number] Oral 120 Output: Gastric Drainage 2650 Urine 160 113 130 Estimated Blood Loss 10 Other: Voiding Method Indwelling Catheter Indwelling Catheter Indwelling Catheter # Voids 1 ABP, PAP, CO, CI - Last Documented Arterial Blood Pressure 80/68 - Exam patient is currently on the vent. He is sedated Examination of the heart S1 and S2 Examination of the lungs bilateral breath sounds are heard Abdomen is soft nontender Examination of lower extremities shows 1+ edema TREE PULLER exam could not be performed - Labs CBC & Chem 7: 02/12/24 05:13 02/12/24 05:13 Labs: Abnormal Lab Results - Last 24 Hours (Table) 02/11/24 02/11/24 02/11/24 Range/Units 11:31 14:10 17:45 WBC (3.8-10.6) k/uL RBC (4.30-5.90) m/uL Hgb (13.0-17.5) gm/dL Hct (39.0-53.0) % MCV (80.0-100.0) fL RDW (11.5-15.5) % ABG pH 7.21 L (7.35-7.45) ABG pCO2 83 H* (35-45) mmHg ABG pO2 171 H (83-108) mmHg ABG HCO3 33 H (21-25) mmol/L ABG Total CO2 35 H (19-24) mmol/L ABG O2 Saturation 99.5 H (94-97) % Sodium 131 L (137-145) mmol/L Chloride 90 L (98-107) mmol/L Carbon Dioxide 33 H (22-30) mmol/L BUN 51 H (9-20) mg/dL Creatinine 1.30 H (0.66-1.25) mg/dL Glucose (74-99) mg/dL Calcium (8.4-10.2) mg/dL Total Protein (6.3-8.2) g/dL Albumin (3.5-5.0) g/dL Cortisol 70.8 H (3.1-22.4) UG/DL Ur Specific [place] >1.050 H (1.001-1.035) Urine Protein 1+ H (Negative) Urine Ketones 1+ H (Negative) Urine RBC 9 H (0-5) /hpf Urine Bacteria Rare H (None) /hpf 02/11/24 02/11/24 02/12/24 Range/Units 20:40 20:40 00:25 WBC (3.8-10.6) k/uL RBC (4.30-5.90) m/uL Hgb (13.0-17.5) gm/dL Hct (39.0-53.0) % MCV (80.0-100.0) fL RDW (11.5-15.5) % ABG pH (7.35-7.45) ABG pCO2 58 H (35-45) mmHg ABG pO2 (83-108) mmHg ABG HCO3 32 H (21-25) mmol/L ABG Total CO2 34 H (19-24) mmol/L ABG O2 Saturation 98.3 H (94-97) % Sodium 131 L (137-145) mmol/L Chloride 95 L (98-107) mmol/L Carbon Dioxide 33 H (22-30) mmol/L BUN 46 H (9-20) mg/dL Creatinine 1.63 H (0.66-1.25) mg/dL Glucose (74-99) mg/dL Calcium 7.7 L (8.4-10.2) mg/dL Total Protein 4.6 L (6.3-8.2) g/dL Albumin 2.4 L (3.5-5.0) g/dL Cortisol 28.5 H (3.1-22.4) UG/DL Ur Specific [place] (1.001-1.035) Urine Protein (Negative) Urine Ketones (Negative) Urine RBC (0-5) /hpf Urine Bacteria (None) /hpf 02/12/24 02/12/24 Range/Units 05:13 05:13 WBC 17.9 H (3.8-10.6) k/uL RBC 2.88 L (4.30-5.90) m/uL Hgb 9.2 L D (13.0-17.5) gm/dL Hct 29.6 L (39.0-53.0) % MCV 102.7 H (80.0-100.0) fL RDW 17.9 H (11.5-15.5) % ABG pH (7.35-7.45) ABG pCO2 (35-45) mmHg ABG pO2 (83-108) mmHg ABG HCO3 (21-25) mmol/L ABG Total CO2 (19-24) mmol/L ABG O2 Saturation (94-97) % Sodium 133 L (137-145) mmol/L Chloride (98-107) mmol/L Carbon Dioxide (22-30) mmol/L BUN 44 H (9-20) mg/dL Creatinine 1.48 H (0.66-1.25) mg/dL Glucose 66 L (74-99) mg/dL Calcium 7.2 L (8.4-10.2) mg/dL Total Protein 4.1 L (6.3-8.2) g/dL Albumin 2.1 L (3.5-5.0) g/dL Cortisol (3.1-22.4) UG/DL Ur Specific [place] (1.001-1.035) Urine Protein (Negative) Urine Ketones (Negative) Urine RBC (0-5) /hpf Urine Bacteria (None) /hpf Microbiology - Last 24 Hours (Table) 02/10/24 14:45 Blood Culture - Preliminary Blood 02/10/24 14:30 Blood Culture - Preliminary Blood Assessment and Plan Assessment: 1. Acute kidney injury. Secondary to ATN from hypotension. No obstruction noted on CT. UA shows 1+ protein 1+ no blood . Continue with IV fluids. Status post cardiac catheterization 02/10/2024. Patient has been started on dobutamine 2. Hyperkalemia. Associated with acute kidney injury. No evidence of adrenal insufficiency. 3. Hypovolemic hyponatremia. Maintained on normal saline. 4. NSTEMI. 5. Cardiomyopathy. EF 15-20% on echo 02/10/2024. 6. Small bowel obstruction. Being followed by surgery. status post lysis of adhesions and repair of internal hernia on 02/11/2024 Plan: continue with IV fluids. avoid any nephrotoxic agents. Continue with antibiotics Wean down pressors as tolerated.
[2024-02-12 11:58] LABS: African American GFR (CKD) 45 (>60 ml/min/1.73 sqM); Blood Urea Nitrogen 44 mg/dL (9-20); Non-African American GFR(CKD) 39 (>60 ml/min/1.73 sqM); Sodium 134 mmol/L (137-145)
[2024-02-12] MEDS: ACETAMINOPHEN IV (For NPO) 1,000 MG in EMPTY BAG 1 BAG IVPB PRN (12:05)
[2024-02-12] MEDS: IPRATROPIUM 0.5 MG/2.5 ML NEBU INHALATION SCH (12:21)
[2024-02-12] MEDS: IPRATROPIUM-ALBUTEROL 3 ML NEB INHALATION PRN (12:21)
[2024-02-12] MEDS: DOBUTamine DRIP 500 MG in DEXTROSE/WATER 1 250ML.BAG IV SCH (12:37)
--- NOTE | 2024-02-12 13:30 | P.PN ---
Subjective Progress Note Date: 02/12/24 CHIEF COMPLAINT: SBO HISTORY OF PRESENT ILLNESS: Patient is postop day #1 status post exploratory laparotomy with lysis of adhesions for high-grade small bowel obstruction secondary to internal hernia due to adhesions. Patient is in the ICU and is intubated and on mechanical ventilation. Patient is requiring both Levophed and vasopressin. Patient did have 550 mL brownish output through his OG tube. He is afebrile. Mildly tachycardic. White count did go up from 7-17 hemoglobin 9.2 creatinine 1.73. Decreased urine output. Cardiology adding dobutamine and trying to wean patient down on the levo. Patient seen and examined with Dr. Vu PHYSICAL EXAM: VITAL SIGNS: Reviewed. GENERAL: no acute distress. ABDOMEN: Softer. mildly distended. Incisional dressing clean dry and intact NEUROLOGIC: Alert and oriented. Cranial nerves II through XII grossly intact. ASSESSMENT: 1. High-grade small bowel obstruction secondary to internal hernia due to adhesions 2. Acute coronary syndrome 3. Hx of lung cancer 4. History of cardiomyopathy and low EF PLAN: -Continue ICU management -Continue supportive care -Continue IV fluids -Continue antibiotics -DVT prophylaxis subcu heparin Physician Fire Engineer note has been reviewed by physician. Signing provider agrees with the documented findings, assessment, and plan of care. Objective - Vital Signs Vital signs: Vital Signs Temp 99.8 F H 02/12/24 04:00 Pulse 113 H 02/12/24 12:32 Resp 17 02/12/24 12:32 BP 104/73 02/12/24 11:00 Pulse Ox 98 02/12/24 11:00 FiO2 50 02/12/24 12:15 Intake & Output 02/11/24 02/12/24 02/12/24 18:59 06:59 18:59 Intake Total 3069.739 7613.744 942.649 Output Total 170 2763 155 Balance 5834.745 3403.744 787.649 Weight 60.45 kg Intake: IV 1425 3005 540 0.9 Sodium Chloride 80 60 carrier Lactated Ringers 1,000 ml 1000 @ 999 mls/hr IV .Q1H1M [facility] Rx#:[id number] Piperacillin-Tazobactam 3 100 .375 gm In Sodium Chloride 0.9% 100 ml @ 25 mls/hr IVPB Q8HR [facility] Rx# :[id number] Pressure Bag (0.9 Sodium 30 Chloride) Sodium Chloride 0.9% 1, 575 825 450 000 ml @ 75 mls/hr IV . [id number] [facility] Rx#:[id number] Sodium Chloride 0.9% 1, 1000 000 ml @ 999 mls/hr IV . Q1H1M [facility] Rx#:[id number] Intake, IV Titration 73.694 850.744 402.649 Amount Heparin Sod,Pork in 0.45% 59.556 NaCl 25,000 unit In 0.45 % NaCl 1 250ml.bag @ 12 UNITS/KG/HR 7.076 mls/hr IV .Q24H [facility] Rx#: [id number] Norepinephrine 32 mg In 65.656 Sodium Chloride 0.9% 218 ml @ 0.5 MCG/KG/MIN 14. 168 mls/hr IV .[id number] [facility] Rx#:[id number] Norepinephrine 4 mg In 6.178 653.807 253.909 Sodium Chloride 0.9% 250 ml @ 0.03 MCG/KG/MIN 6.74 mls/hr IV .Q24H [facility] Rx#: [id number] Vasopressin 20 unit In 31.977 Sodium Chloride 0.9% 50 ml @ 0.03 UNITS/MIN 4.59 mls/hr IV .Q11H7M [facility] Rx# :[id number] propofoL 1,000 mg In 7.960 164.960 83.084 Empty Bag 1 bag @ 15 MCG/ KG/MIN 5.307 mls/hr IV . [id number] [facility] Rx#:[id number] Oral 120 Output: Gastric Drainage 2650 Urine 160 113 155 Estimated Blood Loss 10 Other: Voiding Method Indwelling Catheter Indwelling Catheter Indwelling Catheter # Voids 1 ABP, PAP, CO, CI - Last Documented Arterial Blood Pressure 80/68 - Labs CBC & Chem 7: 02/12/24 05:13 02/12/24 11:40 Labs: Abnormal Lab Results - Last 24 Hours (Table) 02/11/24 02/11/24 02/11/24 Range/Units 11:31 14:10 17:45 WBC (3.8-10.6) k/uL RBC (4.30-5.90) m/uL Hgb (13.0-17.5) gm/dL Hct (39.0-53.0) % MCV (80.0-100.0) fL RDW (11.5-15.5) % ABG pH 7.21 L (7.35-7.45) ABG pCO2 83 H* (35-45) mmHg ABG pO2 171 H (83-108) mmHg ABG HCO3 33 H (21-25) mmol/L ABG Total CO2 35 H (19-24) mmol/L ABG O2 Saturation 99.5 H (94-97) % Sodium (137-145) mmol/L Chloride (98-107) mmol/L Carbon Dioxide (22-30) mmol/L BUN (9-20) mg/dL Creatinine (0.66-1.25) mg/dL Glucose (74-99) mg/dL Calcium (8.4-10.2) mg/dL Total Protein (6.3-8.2) g/dL Albumin (3.5-5.0) g/dL Cortisol 70.8 H (3.1-22.4) UG/DL Ur Specific [place] >1.050 H (1.001-1.035) Urine Protein 1+ H (Negative) Urine Ketones 1+ H (Negative) Urine RBC 9 H (0-5) /hpf Urine Bacteria Rare H (None) /hpf 02/11/24 02/11/24 02/12/24 Range/Units 20:40 20:40 00:25 WBC (3.8-10.6) k/uL RBC (4.30-5.90) m/uL Hgb (13.0-17.5) gm/dL Hct (39.0-53.0) % MCV (80.0-100.0) fL RDW (11.5-15.5) % ABG pH (7.35-7.45) ABG pCO2 58 H (35-45) mmHg ABG pO2 (83-108) mmHg ABG HCO3 32 H (21-25) mmol/L ABG Total CO2 34 H (19-24) mmol/L ABG O2 Saturation 98.3 H (94-97) % Sodium 131 L (137-145) mmol/L Chloride 95 L (98-107) mmol/L Carbon Dioxide 33 H (22-30) mmol/L BUN 46 H (9-20) mg/dL Creatinine 1.63 H (0.66-1.25) mg/dL Glucose (74-99) mg/dL Calcium 7.7 L (8.4-10.2) mg/dL Total Protein 4.6 L (6.3-8.2) g/dL Albumin 2.4 L (3.5-5.0) g/dL Cortisol 28.5 H (3.1-22.4) UG/DL Ur Specific [place] (1.001-1.035) Urine Protein (Negative) Urine Ketones (Negative) Urine RBC (0-5) /hpf Urine Bacteria (None) /hpf 02/12/24 02/12/24 02/12/24 Range/Units 05:13 05:13 11:40 WBC 17.9 H (3.8-10.6) k/uL RBC 2.88 L (4.30-5.90) m/uL Hgb 9.2 L D (13.0-17.5) gm/dL Hct 29.6 L (39.0-53.0) % MCV 102.7 H (80.0-100.0) fL RDW 17.9 H (11.5-15.5) % ABG pH (7.35-7.45) ABG pCO2 (35-45) mmHg ABG pO2 (83-108) mmHg ABG HCO3 (21-25) mmol/L ABG Total CO2 (19-24) mmol/L ABG O2 Saturation (94-97) % Sodium 133 L 134 L (137-145) mmol/L Chloride (98-107) mmol/L Carbon Dioxide (22-30) mmol/L BUN 44 H 44 H (9-20) mg/dL Creatinine 1.48 H 1.73 H (0.66-1.25) mg/dL Glucose 66 L (74-99) mg/dL Calcium 7.2 L (8.4-10.2) mg/dL Total Protein 4.1 L (6.3-8.2) g/dL Albumin 2.1 L (3.5-5.0) g/dL Cortisol (3.1-22.4) UG/DL Ur Specific [place] (1.001-1.035) Urine Protein (Negative) Urine Ketones (Negative) Urine RBC (0-5) /hpf Urine Bacteria (None) /hpf Microbiology - Last 24 Hours (Table) 02/10/24 14:45 Blood Culture - Preliminary Blood 02/10/24 14:30 Blood Culture - Preliminary Blood
[2024-02-12] MEDS ORDERED: ADENOSINE 3 MG/ML 2 ML VIAL IVP ONE (17:06)
[2024-02-12] MEDS ORDERED: DEXTROSE 5% IN WATER 100 ML BAG IV ONE (17:06)
[2024-02-12] MEDS ORDERED: SODIUM BICARB 8.4% 50 ML SYR (1 MEQ/ML) ONE (17:06)
[2024-02-12] MEDS ORDERED: AMIODARONE 50 MG/ML 3 ML VIAL IV ONE (17:06)
[2024-02-12] MEDS ORDERED: EPINEPHrine 10 ML SYRINGE (0.1 MG/ML) ONE (17:06)
[2024-02-12 17:31] LABS: Glucose,Whole Blood 91 mg/dL (70-110)
[2024-02-12] MEDS: AMIODARONE 360 MG in DEXTROSE 5% IN WATER 200 ML IV ONE (17:43)
[2024-02-12] MEDS ORDERED: HEPARIN SODIUM 1,000 UN/ML (10ML VL) IV PRN (17:45)
[2024-02-12] MEDS: HEPARIN SODIUM 1,000 UN/ML (10ML VL) IV ONE (17:54)
[2024-02-12] MEDS: HEPARIN SOD,PORK IN 0.45% NACL 25,000 UNIT in 0.45% NACL 1 250ML.BAG IV SCH (17:55)
[2024-02-12] MEDS: PHENYLEPHRINE 40 MG in SODIUM CHLORIDE 0.9% 250 ML IV SCH (17:57)
[2024-02-12] MEDS: DEXTROSE 5% IN WATER 100 ML with AMIODARONE 150 MG IV ONE (19:09)
[2024-02-12 21:39] LABS: INR 1.1 (<1.2); Partial Thromboplastin Time 53.6 sec (22.0-30.0); Prothrombin Time 11.5 sec (10.0-12.5)
[2024-02-12 22:15] LABS: ALT 21 U/L (4-49); AST 44 U/L (17-59); African American GFR (CKD) 45 (>60 ml/min/1.73 sqM); Albumin 2.1 g/dL (3.5-5.0); Alkaline Phosphatase 56 U/L (38-126); Anion Gap 10 mmol/L; Blood Urea Nitrogen 43 mg/dL (9-20); Calcium 6.9 mg/dL (8.4-10.2); Carbon Dioxide 24 mmol/L (22-30); Chloride 102 mmol/L (98-107); Glucose 138 mg/dL (74-99); Magnesium 2.4 mg/dL (1.6-2.3); Non-African American GFR(CKD) 39 (>60 ml/min/1.73 sqM); Potassium 3.9 mmol/L (3.5-5.1); Sodium 136 mmol/L (137-145); Total Bilirubin 0.8 mg/dL (0.2-1.3); Total Protein 4.1 g/dL (6.3-8.2)
[2024-02-12] MEDS ORDERED: Potassium Replacement Protocol 1 EACH MISC MISCELLANE PRN (22:31)
[2024-02-12] MEDS: POTASSIUM CHLORIDE 10 MEQ in WATER FOR INJECTION 1 100ML.BAG IVPB SCH (22:48)
[2024-02-12] MEDS: MAGNESIUM SULFATE-D5W PMX 1 GM in DEXTROSE/WATER 1 100ML.BAG IVPB SCH (22:48)
[2024-02-12] MEDS: AMIODARONE 450 MG in DEXTROSE 5% IN WATER 250 ML IV SCH (23:06)
[2024-02-12 23:53] LABS: Glucose,Whole Blood 179 mg/dL (70-110)
[2024-02-13] MEDS ORDERED: DEXTROSE 50% SYRINGE 50 ML IVP PRN ×2 (00:22)
[2024-02-13] MEDS: INSULIN ASPART (NovoLOG) 100 UNIT/ML VIAL SQ SCH (00:49)
[2024-02-13 05:22] LABS: Partial Thromboplastin Time 41.8 sec (22.0-30.0); Prothrombin Time 10.7 sec (10.0-12.5)
[2024-02-13 05:29] LABS: ALT 23 U/L (4-49); AST 46 U/L (17-59); African American GFR (CKD) 43 (>60 ml/min/1.73 sqM); Albumin 2.1 g/dL (3.5-5.0); Alkaline Phosphatase 64 U/L (38-126); Anion Gap 8 mmol/L; Blood Urea Nitrogen 43 mg/dL (9-20); Carbon Dioxide 25 mmol/L (22-30); Chloride 102 mmol/L (98-107); Glucose 168 mg/dL (74-99); Magnesium 2.7 mg/dL (1.6-2.3); Non-African American GFR(CKD) 37 (>60 ml/min/1.73 sqM); Potassium 4.2 mmol/L (3.5-5.1); Sodium 135 mmol/L (137-145); Total Bilirubin 0.6 mg/dL (0.2-1.3); Total Protein 4.3 g/dL (6.3-8.2)
[2024-02-13 05:30] LABS: Glucose,Whole Blood 206 mg/dL (70-110)
[2024-02-13 05:44] LABS: Anisocytosis Slight; HCT 27.5 % (39.0-53.0); HGB 8.6 gm/dL (13.0-17.5); Hypochromasia Marked; MCH 33.9 pg (25.0-35.0); MCHC 31.3 g/dL (31.0-37.0); Macrocytosis Marked; Mean Platelet Volume 8.7; Platelet Count 313 k/uL (150-450); RBC 2.54 m/uL (4.30-5.90); RDW 18.3 % (11.5-15.5); WBC 20.9 k/uL (3.8-10.6)
[2024-02-13 05:46] LABS: ABG Base Excess -2.6 mmol/L; ABG HCO3 25 mmol/L (21-25); ABG Oxygen Saturation 98.4 % (94-97); ABG PCO2 59 mmHg (35-45); ABG PH 7.24 (7.35-7.45); ABG PO2 101 mmHg (83-108); ABG TCO2 27 mmol/L (19-24); Allen Test Performed? Yes
[2024-02-13 05:47] LABS: MCV 108.3 fL (80.0-100.0)
[2024-02-13 06:29] LABS: Band Neutrophils % 6 %; Lymphocytes # (M) 1.05 k/uL (1.0-4.8); Metamyelocytes # (M) 0.63 k/uL (0); Metamyelocytes % 3 %; Monocytes # (M) 0.63 k/uL (0-1.0); Myelocytes # (M) 0.42 k/uL (0); Myelocytes % 2 %; Neutrophils % (M) 83 %; Nucleated Red Blood Cells 0 /100 WBC (0-0); Total Cells Counted 200
[2024-02-13 06:37] LABS: RBC Morphology Normal
--- NOTE | 2024-02-13 07:46 | XR ---
EXAMINATION TYPE: XR chest 1V portable DATE OF EXAM: 02/13/2024 COMPARISON: 02/12/2024 HISTORY: Tube placement TECHNIQUE: Single frontal view of the chest is obtained. FINDINGS: ET tube and NG-tube, central line Mediport stable. Emphysematous changes with bilateral co nsolidation and pleural effusion stable. Degenerative changes spine and arthropathy of the shoulders. . Elevated left hemidiaphragm stable. IMPRESSION: Bilateral consolidation and pleural effusion stable.
--- NOTE | 2024-02-13 08:18 | P.PN ---
Subjective Progress Note Date: 02/13/24 This is a 73-year-old gentleman with a past medical history significant for history of smoking and COPD and chronic hypoxic respiratory failure as well as history of lung cancer currently on chemotherapy with unknown details at this point. We consulted to see the patient in the emergency room for further evaluation of abnormal cardiac enzymes as well as abnormal EKG. The patient presented to the hospital with long cardiovascular symptoms including abdominal discomfort was associated with nausea. For some reasons he underwent further evaluation including an EKG and that showed sinus mechanism with ST segment elevation in the anteroseptal leads with already Q waves in the anteroseptal leads as well. Subsequently troponin was performed and came to be also abnormal. Also on examination the patient was found to have abdominal wall distention and abdominal tenderness with further evaluation showed small bowel obstruction which was extremely severe. The patient did not report any symptoms of chest pain or chest discomfort or any dizziness or lightheadedness or presyncope or syncope and no history of CAD or heart failure or cardiac arrhythmia and never seen any boat driver before. Subsequently initially medical treatment only was advised giving the absence of any chest pain or chest discomfort as well as the patient probably completed an infarct. The patient was seen after that by the surgical team and he was deemed to be not needing any surgery at this point. Further evaluation was performed including an echo and that showed severe cardiomyopathy with EF around 20%. Subsequently patient underwent a heart catheterization which revealed chronic total occlusion of the RCA which fills by collaterals from the left coronary system along with severe disease involving the LCx and severe disease involving the LAD but both the LCx and LAD have DEB-3 flow. I felt at this point doing percutaneous revascularization will not help the patient in case he need to have surgery down the line. With that being said I am going to maximize medical treatment at this point and optimize medical treatment for cardiomyopathy as well as CAD and acute coronary syndrome. The examination revealed mild sinus tachycardia with soft blood pressure and diminished breathing sounds bilaterally and no edema was noted in the lower extremities. February 12, 2024 The patient was seen and evaluated this morning. He underwent abdominal surgery yesterday with lysis of adhesion. Currently he is intubated on mechanical ventilation but he is hypotensive requiring norepinephrine at high dose. I am going to start the patient on dobutamine and try to come down with norepinephrine giving the cardiomyopathy and low EF and the acute coronary syndrome. Otherwise the urine output is marginal. The examination is remarkable for intubated patient with diminished breathing sounds bilaterally and no edema was noted in the lower extremities February 13, 2024 The patient was seen and evaluated this morning. Apparently last night he did have an episode of tachycardia and reviewing the strips indicate possible SVT versus atrial flutter. He received cardioversion and subsequently he was started on amiodarone but he has been maintaining normal sinus mechanism but he continues to be hypotensive requiring vasopressors. Examination is remarkable for intubated patient on mechanical ventilation with diminished breathing sounds bilaterally and regular rate and rhythm with a and heart sounds Assessment Status post abdominal surgery Acute coronary syndrome Severe CAD Severe cardiomyopathy Cardiac arrhythmia with SVT versus atrial flutter Multiple comorbid conditions Plan Continue the current medical regimen Continue the current dose of heparin for possible atrial fibrillation Continue monitor the kidney function and electrolytes and hemoglobin Continue amiodarone Overall poor prognosis Objective - Vital Signs Vital signs: Vital Signs Temp 98.7 F 02/13/24 04:00 Pulse 74 02/13/24 07:00 Resp 14 02/13/24 07:00 BP 98/68 02/13/24 07:00 Pulse Ox 100 02/13/24 07:00 FiO2 50 02/13/24 08:00 Intake & Output 02/12/24 02/13/24 02/13/24 18:59 06:59 18:59 Intake Total 2657.842 3359.571 101 Output Total 305 672 30 Balance 2352.842 2687.571 71 Weight 65.4 kg Intake: IV 2131 2312 101 0.9 Sodium Chloride 140 240 20 carrier Piperacillin-Tazobactam 3 100 175 .375 gm In Sodium Chloride 0.9% 100 ml @ 25 mls/hr IVPB Q8HR [facility] Rx# :[id number] Pressure Bag (0.9 Sodium 66 72 6 Chloride) Sodium Chloride 0.9% 1, 1825 1825 75 000 ml @ 75 mls/hr IV . [id number] [facility] Rx#:[id number] Intake, IV Titration 722.718 2201.571 Amount DOBUTamine DRIP 500 mg In 12.423 Dextrose/Water 1 250ml. bag @ 2 MCG/KG/MIN 3.627 mls/hr IV .Q24H [facility] Rx#: [id number] Heparin Sod,Pork in 0.45% 86.806 NaCl 25,000 unit In 0.45 % NaCl 1 250ml.bag @ 12 UNITS/KG/HR 7.254 mls/hr IV .Q24H [facility] Rx#: [id number] Magnesium Sulfate-D5w Pmx 200 1 gm In Dextrose/Water 1 100ml.bag @ 100 mls/hr IVPB Q1H [facility] Rx#: [id number] Norepinephrine 32 mg In 118.749 82.174 Sodium Chloride 0.9% 218 ml @ 0.5 MCG/KG/MIN 14. 168 mls/hr IV .[id number] [facility] Rx#:[id number] Norepinephrine 4 mg In 253.909 Sodium Chloride 0.9% 250 ml @ 0.03 MCG/KG/MIN 6.74 mls/hr IV .Q24H [facility] Rx#: [id number] Phenylephrine 40 mg In 7.677 261.943 Sodium Chloride 0.9% 250 ml @ 1 MCG/KG/MIN 23.031 mls/hr IV .Q11H2M [facility] Rx# :[id number] Potassium Chloride 10 meq 200 In Water For Injection 1 100ml.bag @ 100 mls/hr IVPB Q1H [facility] Rx#: [id number] Vasopressin 20 unit In 51 42.636 Sodium Chloride 0.9% 50 ml @ 0.04 UNITS/MIN 6.12 mls/hr IV .Q8H20M [facility] Rx# :[id number] propofoL 1,000 mg In 83.084 174.012 Empty Bag 1 bag @ 15 MCG/ KG/MIN 5.307 mls/hr IV . [id number] [facility] Rx#:[id number] Output: Gastric Drainage 350 Urine 305 322 30 Other: Voiding Method Indwelling Catheter Indwelling Catheter ABP, PAP, CO, CI - Last Documented Arterial Blood Pressure 86/51 - Labs CBC & Chem 7: 02/13/24 04:40 02/13/24 04:40 Labs: Abnormal Lab Results - Last 24 Hours (Table) 02/11/24 02/12/24 02/12/24 Range/Units 20:40 05:13 11:40 WBC (3.8-10.6) k/uL RBC (4.30-5.90) m/uL Hgb (13.0-17.5) gm/dL Hct (39.0-53.0) % MCV (80.0-100.0) fL RDW (11.5-15.5) % Neutrophils # (Manual) (1.3-7.7) k/uL Metamyelocytes # (Man) (0) k/uL Myelocytes # (Manual) (0) k/uL Macrocytosis APTT (22.0-30.0) sec ABG pH (7.35-7.45) ABG pCO2 (35-45) mmHg ABG Total CO2 (19-24) mmol/L ABG O2 Saturation (94-97) % Sodium 134 L (137-145) mmol/L BUN 44 H (9-20) mg/dL Creatinine 1.73 H (0.66-1.25) mg/dL Glucose (74-99) mg/dL POC Glucose (mg/dL) (70-110) mg/dL Calcium (8.4-10.2) mg/dL Magnesium (1.6-2.3) mg/dL Total Protein (6.3-8.2) g/dL Albumin (3.5-5.0) g/dL Procalcitonin 4.10 H (0.02-0.09) ng/mL Cortisol 28.5 H (3.1-22.4) UG/DL 02/12/24 02/12/24 02/12/24 Range/Units 21:06 21:48 23:46 WBC (3.8-10.6) k/uL RBC (4.30-5.90) m/uL Hgb (13.0-17.5) gm/dL Hct (39.0-53.0) % MCV (80.0-100.0) fL RDW (11.5-15.5) % Neutrophils # (Manual) (1.3-7.7) k/uL Metamyelocytes # (Man) (0) k/uL Myelocytes # (Manual) (0) k/uL Macrocytosis APTT 53.6 H 47.3 H (22.0-30.0) sec ABG pH (7.35-7.45) ABG pCO2 (35-45) mmHg ABG Total CO2 (19-24) mmol/L ABG O2 Saturation (94-97) % Sodium 136 L (137-145) mmol/L BUN 43 H (9-20) mg/dL Creatinine 1.73 H (0.66-1.25) mg/dL Glucose 138 H (74-99) mg/dL POC Glucose (mg/dL) (70-110) mg/dL Calcium 6.9 L (8.4-10.2) mg/dL Magnesium 2.4 H (1.6-2.3) mg/dL Total Protein 4.1 L (6.3-8.2) g/dL Albumin 2.1 L (3.5-5.0) g/dL Procalcitonin (0.02-0.09) ng/mL Cortisol (3.1-22.4) UG/DL 02/12/24 02/13/24 02/13/24 Range/Units 23:47 04:40 04:40 WBC 20.9 H (3.8-10.6) k/uL RBC 2.54 L (4.30-5.90) m/uL Hgb 8.6 L (13.0-17.5) gm/dL Hct 27.5 L (39.0-53.0) % MCV 108.3 H D (80.0-100.0) fL RDW 18.3 H (11.5-15.5) % Neutrophils # (Manual) 18.60 H (1.3-7.7) k/uL Metamyelocytes # (Man) 0.63 H (0) k/uL Myelocytes # (Manual) 0.42 H (0) k/uL Macrocytosis Marked A APTT (22.0-30.0) sec ABG pH (7.35-7.45) ABG pCO2 (35-45) mmHg ABG Total CO2 (19-24) mmol/L ABG O2 Saturation (94-97) % Sodium 135 L (137-145) mmol/L BUN 43 H (9-20) mg/dL Creatinine 1.80 H (0.66-1.25) mg/dL Glucose 168 H (74-99) mg/dL POC Glucose (mg/dL) 179 H (70-110) mg/dL Calcium 7.0 L (8.4-10.2) mg/dL Magnesium 2.7 H (1.6-2.3) mg/dL Total Protein 4.3 L (6.3-8.2) g/dL Albumin 2.1 L (3.5-5.0) g/dL Procalcitonin (0.02-0.09) ng/mL Cortisol (3.1-22.4) UG/DL 02/13/24 02/13/24 02/13/24 Range/Units 04:40 05:28 05:42 WBC (3.8-10.6) k/uL RBC (4.30-5.90) m/uL Hgb (13.0-17.5) gm/dL Hct (39.0-53.0) % MCV (80.0-100.0) fL RDW (11.5-15.5) % Neutrophils # (Manual) (1.3-7.7) k/uL Metamyelocytes # (Man) (0) k/uL Myelocytes # (Manual) (0) k/uL Macrocytosis APTT 41.8 H (22.0-30.0) sec ABG pH 7.24 L (7.35-7.45) ABG pCO2 59 H (35-45) mmHg ABG Total CO2 27 H (19-24) mmol/L ABG O2 Saturation 98.4 H (94-97) % Sodium (137-145) mmol/L BUN (9-20) mg/dL Creatinine (0.66-1.25) mg/dL Glucose (74-99) mg/dL POC Glucose (mg/dL) 206 H (70-110) mg/dL Calcium (8.4-10.2) mg/dL Magnesium (1.6-2.3) mg/dL Total Protein (6.3-8.2) g/dL Albumin (3.5-5.0) g/dL Procalcitonin (0.02-0.09) ng/mL Cortisol (3.1-22.4) UG/DL Microbiology - Last 24 Hours (Table) 02/10/24 14:45 Blood Culture - Preliminary Blood 02/10/24 14:30 Blood Culture - Preliminary Blood
--- NOTE | 2024-02-13 11:39 | P.PN ---
Subjective Progress Note Date: 02/13/24 Patient is a 73-year-old white male with past medical history significant for COPD, chronic hypoxemic respiratory failure, lung cancer undergoing current systemic treatment, former tobacco smoker, among other things. Patient states that he has lung cancer diagnosed approximately [address] [facility]. He follows with an out-of-town oncologist, Dr. Rincon, who directs his treatments. He is chronically oxygen dependent on 4 L/min nasal cannula. Quit smoking over 2 years ago. He presents to the emergency department yesterday afternoon complaining of severe periumbilical abdominal pain, which reportedly started on . His appetite has been poor. Last bowel movement was rod roximately 4 days ago, and small/liquid. Denies any cookie blood loss. Abdominal/pelvis CT demonstrated marked distal small bowel obstruction with an uncertain transition point. No free intraperitoneal air or fluid. No definitive masses. Incidentally, bilateral lower lobe pleural effusions were s een. Questionable airspace infiltrates or atelectasis. During his initial workup in the emergency department, he was noted to have diffuse ST segment elevations, as well as, significantly elevated cardiac troponin. Denies prior history of coronary artery disease, prior cardiac stents, or heart attacks. He denies any chest pain, acute shortness of breath, nausea, diaphoresis. Does admit some increased bilateral lower extremity/ankle edema. CBC: WBC count 7, hemoglobin 11.9, hematocrit 37, platelets 560. CMP: Sodium 129, potassium 5.5, chloride 89, serum bicarb 36, BUN 48, creatinine 1.18, glucose 152. AST 128, ALT 39, ALP 71. Troponin 56.8. EKG showing diffuse ST elevation in leads II, III, aVF; V3, V4, V5. He did go to the Refractive Surgeon yesterday evening which demonstrated chronic total occlusion of the RCA, critical disease involving the left circumflex, and severe disease involving the LAD. Cardiology is treating the patient medically at this point. Follow-up echocardiogram estimating severely decreased left ventricular ejection fraction of 15 to 20%. There is hypokinesis involving the anterior wall and anterior septum. Patient is currently on the cardiac stepdown unit. He appears comfortable lying in bed. Cachectic and frail. He is currently on 2 L/min nasal cannula, in no acute respiratory distress. SpO2 is 93%. He is slightly tachycardic. Blood pressure normotensive. No current chest pain. Currently on heparin infusion per protocol. Normal saline infusing at 75 mL/h. His abdomen remains distended. Abdominal pain has improved, currently rated 6/10 on a 10 point numerical scale. This is a generalized abdominal discomfort. No nausea or vomiting. He does have an NG tube to low intermittent suction for decompression it is draining a brown/fecal like material. I am told almost 1 L of output was initially drained on insertion of the nasogastric tube. He is currently NPO. General surgery has evaluated this patient, no plans for immediate surgical intervention, due to patient's acute CT. He is currently covered empirically on Zosyn. Reportedly has history of unknown penicillin allergy as a child. Prognosis is guarded. The patient is seen today February 12, 2024 in follow-up in the intensive care unit. He did undergo an exploratory laparotomy with lysis of adhesions yesterday. No significant bowel schema was noted. He did did have 4 L of fluid removed from his stomach however. Postoperative day #1. He remains intubated on the [facility] anical ventilator currently on assist-control mode at a rate of 16, tidal volume 400, FiO2 60% and a PEEP of 8. Morning blood gases reveal a PaO2 of 102, pCO2 58, pH 7.35 performed on 70% FiO2. He remains sedated on propofol at 35 mcg/kg/min. He is on normal saline at 75 MLS per hour. He is requiring norepinephrine at 20 mcg/min. He is also on vasopressin at 0.03 units/min. He is currently in sinus rhythm. Chest x-ray reveals endotracheal tube, nasogastric tube central line Mediport all in good position. Stable elevated left hemidiaphragm. Bilateral consolidation and pleural effusions are stable. Blood cultures are pending. White count 17.9. Hemoglobin 9.2. Platelets 412. Sodium 133. Potassium 4.1. Bicarb 27. BUN 44. Creatinine 1.48. Glucose 66. Cortisol level was 28.5. He is currently in a 2.5 L positive balance. He is on DuoNeb inhalations, Pulmicort and Perforomist inhalations. Antibiotics in the form of Zosyn. Heparin for DVT prophylaxis. The patient is seen today February 13, 2024 in follow-up in the intensive care unit. Last evening at approximately 5 PM the patient had SVT requiring cardioversion x 4 and then developed PEA and received about 10 minutes of CPR then return of spontaneous circulation. He remains intubated on the mechanical ventilator cu rrently in assist-control mode with a rate of 16, tidal volume 400, FiO2 50% and a PEEP of 8. Morning blood gases reveal a PaO2 of 101, pCO2 of 59 and a pH of 7.24. Respiratory acidosis. He remains on vasopressin at 0.04 units/min. Norepinephrine at 33 mcg/min. Elmo-Synephrine at 72 mcg/min. Amiodarone at 0.5 mg/min. He is on a heparin drip per weight-based protocol. Normal saline at 75 MLS per hour. Propofol at 25 mcg/kg/min. Chest x-ray reveals bilateral consolidation and stable pleural effusions. White count 20.9. Hemoglobin 8.6. Platelets 313. Sodium 135. Potassium 4.2. Bicarb 25. BUN 43. Creatinine 1.80. Glucose 168. He is on DuoNeb inhalations, Pulmicort and Perforomist inhalations. Remains on antibiotics in the form of Zosyn. Objective - Vital Signs Vital signs: Vital Signs Temp 99.3 F 02/13/24 08:00 Pulse 82 02/13/24 11:00 Resp 18 02/13/24 11:00 BP 99/66 02/13/24 08:00 Pulse Ox 98 02/13/24 11:00 FiO2 50 02/13/24 08:29 Intake & Output 02/12/24 02/13/24 02/13/24 18:59 06:59 18:59 Intake Total 2657.842 3359.571 1141.141 Output Total 305 672 140 Balance 2352.842 2687.571 1001.141 Weight 65.4 kg Intake: IV 2131 2312 605 0.9 Sodium Chloride 140 240 100 carrier Piperacillin-Tazobactam 3 100 175 100 .375 gm In Sodium Chloride 0.9% 100 ml @ 25 mls/hr IVPB Q8HR [facility] Rx# :[id number] Pressure Bag (0.9 Sodium 66 72 30 Chloride) Sodium Chloride 0.9% 1, 1599 0984 375 000 ml @ 75 mls/hr IV . [id number] [facility] Rx#:[id number] Intake, IV Titration 238.093 5397.571 456.141 Amount Amiodarone 450 mg In 198.893 Dextrose 5% in Water 250 ml @ 0.5 MG/MIN 16.667 mls/hr IV .Q15H [facility] Rx#: [id number] DOBUTamine DRIP 500 mg In 12.423 Dextrose/Water 1 250ml. bag @ 2 MCG/KG/MIN 3.627 mls/hr IV .Q24H [facility] Rx#: [id number] Heparin Sod,Pork in 0.45% 86.806 NaCl 25,000 unit In 0.45 % NaCl 1 250ml.bag @ 12 UNITS/KG/HR 7.254 mls/hr IV .Q24H [facility] Rx#: [id number] Magnesium Sulfate-D5w Pmx 200 1 gm In Dextrose/Water 1 100ml.bag @ 100 mls/hr IVPB Q1H [facility] Rx#: [id number] Norepinephrine 32 mg In 118.749 82.174 Sodium Chloride 0.9% 218 ml @ 0.5 MCG/KG/MIN 14. 168 mls/hr IV .[id number] [facility] Rx#:[id number] Norepinephrine 4 mg In 253.909 Sodium Chloride 0.9% 250 ml @ 0.03 MCG/KG/MIN 6.74 mls/hr IV .Q24H [facility] Rx#: [id number] Phenylephrine 40 mg In 7.677 261.943 206.248 Sodium Chloride 0.9% 250 ml @ 1 MCG/KG/MIN 23.031 mls/hr IV .Q11H2M [facility] Rx# :[id number] Potassium Chloride 10 meq 200 In Water For Injection 1 100ml.bag @ 100 mls/hr IVPB Q1H [facility] Rx#: [id number] Vasopressin 20 unit In 51 42.636 51 Sodium Chloride 0.9% 50 ml @ 0.04 UNITS/MIN 6.12 mls/hr IV .[id number] [facility] Rx# :[id number] propofoL 1,000 mg In 83.084 174.012 Empty Bag 1 bag @ 15 MCG/ KG/MIN 5.307 mls/hr IV . [id number] [facility] Rx#:[id number] Oral 80 Output: Gastric Drainage 350 Urine 305 322 140 Other: Voiding Method Indwelling Catheter Indwelling Catheter Indwelling Catheter ABP, PAP, CO, CI - Last Documented Arterial Blood Pressure 92/51 - Exam GENERAL EXAM: Intubated, sedated 73-year-old male, on FiO2 at 50% and a PEEP of 8, in no apparent distress. HEAD: Normocephalic. EYES: Normal reaction of pupils, equal size. NOSE: Clear with pink turbinates. THROAT: Oral endotracheal and gastric tube secured in place. No erythema or exudates. NECK: No masses, no JVD. CHEST: No chest wall deformity. Right subclavian Mediport in place. LUNGS: Equal air entry with basilar crackles. CVS: S1 and S2 normal with no audible murmur, regular rhythm. ABDOMEN: Abdominal dressing dry and intact. No hepatosplenomegaly, normal bowel sounds, no guarding or rigidity. SPINE: No scoliosis or deformity SKIN: No rashes CENTRAL NERVOUS SYSTEM: Sedated, tone is normal in all 4 extremities. EXTREMITIES: There is no peripheral edema. No clubbing, no cyanosis. Peripheral pulses are intact. - Labs CBC & Chem 7: 02/13/24 04:40 02/13/24 04:40 Labs: Abnormal Lab Results - Last 24 Hours (Table) 02/12/24 02/12/24 02/12/24 Range/Units 05:13 11:40 21:06 WBC (3.8-10.6) k/uL RBC (4.30-5.90) m/uL Hgb (13.0-17.5) gm/dL Hct (39.0-53.0) % MCV (80.0-100.0) fL RDW (11.5-15.5) % Neutrophils # (Manual) (1.3-7.7) k/uL Metamyelocytes # (Man) (0) k/uL Myelocytes # (Manual) (0) k/uL Macrocytosis APTT 53.6 H (22.0-30.0) sec ABG pH (7.35-7.45) ABG pCO2 (35-45) mmHg ABG Total CO2 (19-24) mmol/L ABG O2 Saturation (94-97) % Sodium 134 L (137-145) mmol/L BUN 44 H (9-20) mg/dL Creatinine 1.73 H (0.66-1.25) mg/dL Glucose (74-99) mg/dL POC Glucose (mg/dL) (70-110) mg/dL Calcium (8.4-10.2) mg/dL Magnesium (1.6-2.3) mg/dL Total Protein (6.3-8.2) g/dL Albumin (3.5-5.0) g/dL Procalcitonin 4.10 H (0.02-0.09) ng/mL 02/12/24 02/12/24 02/12/24 Range/Units 21:48 23:46 23:47 WBC (3.8-10.6) k/uL RBC (4.30-5.90) m/uL Hgb (13.0-17.5) gm/dL Hct (39.0-53.0) % MCV (80.0-100.0) fL RDW (11.5-15.5) % Neutrophils # (Manual) (1.3-7.7) k/uL Metamyelocytes # (Man) (0) k/uL Myelocytes # (Manual) (0) k/uL Macrocytosis APTT 47.3 H (22.0-30.0) sec ABG pH (7.35-7.45) ABG pCO2 (35-45) mmHg ABG Total CO2 (19-24) mmol/L ABG O2 Saturation (94-97) % Sodium 136 L (137-145) mmol/L BUN 43 H (9-20) mg/dL Creatinine 1.73 H (0.66-1.25) mg/dL Glucose 138 H (74-99) mg/dL POC Glucose (mg/dL) 179 H (70-110) mg/dL Calcium 6.9 L (8.4-10.2) mg/dL Magnesium 2.4 H (1.6-2.3) mg/dL Total Protein 4.1 L (6.3-8.2) g/dL Albumin 2.1 L (3.5-5.0) g/dL Procalcitonin (0.02-0.09) ng/mL 02/13/24 02/13/24 02/13/24 Range/Units 04:40 04:40 04:40 WBC 20.9 H (3.8-10.6) k/uL RBC 2.54 L (4.30-5.90) m/uL Hgb 8.6 L (13.0-17.5) gm/dL Hct 27.5 L (39.0-53.0) % MCV 108.3 H D (80.0-100.0) fL RDW 18.3 H (11.5-15.5) % Neutrophils # (Manual) 18.60 H (1.3-7.7) k/uL Metamyelocytes # (Man) 0.63 H (0) k/uL Myelocytes # (Manual) 0.42 H (0) k/uL Macrocytosis Marked A APTT 41.8 H (22.0-30.0) sec ABG pH (7.35-7.45) ABG pCO2 (35-45) mmHg ABG Total CO2 (19-24) mmol/L ABG O2 Saturation (94-97) % Sodium 135 L (137-145) mmol/L BUN 43 H (9-20) mg/dL Creatinine 1.80 H (0.66-1.25) mg/dL Glucose 168 H (74-99) mg/dL POC Glucose (mg/dL) (70-110) mg/dL Calcium 7.0 L (8.4-10.2) mg/dL Magnesium 2.7 H (1.6-2.3) mg/dL Total Protein 4.3 L (6.3-8.2) g/dL Albumin 2.1 L (3.5-5.0) g/dL Procalcitonin (0.02-0.09) ng/mL 02/13/24 02/13/24 Range/Units 05:28 05:42 WBC (3.8-10.6) k/uL RBC (4.30-5.90) m/uL Hgb (13.0-17.5) gm/dL Hct (39.0-53.0) % MCV (80.0-100.0) fL RDW (11.5-15.5) % Neutrophils # (Manual) (1.3-7.7) k/uL Metamyelocytes # (Man) (0) k/uL Myelocytes # (Manual) (0) k/uL Macrocytosis APTT (22.0-30.0) sec ABG pH 7.24 L (7.35-7.45) ABG pCO2 59 H (35-45) mmHg ABG Total CO2 27 H (19-24) mmol/L ABG O2 Saturation 98.4 H (94-97) % Sodium (137-145) mmol/L BUN (9-20) mg/dL Creatinine (0.66-1.25) mg/dL Glucose (74-99) mg/dL POC Glucose (mg/dL) 206 H (70-110) mg/dL Calcium (8.4-10.2) mg/dL Magnesium (1.6-2.3) mg/dL Total Protein (6.3-8.2) g/dL Albumin (3.5-5.0) g/dL Procalcitonin (0.02-0.09) ng/mL Microbiology - Last 24 Hours (Table) 02/10/24 14:45 Blood Culture - Preliminary Blood 02/10/24 14:30 Blood Culture - Preliminary Blood Assessment and Plan Assessment: Acute ST elevation CT, status post heart catheterization, demonstrating chronic total occlusion of the RCA, critical disease involving the left circumflex, and severe disease involving the LAD. No plans for immediate surgical intervention. Cardiology is treating the patient medically at this point. Cardiac arrest requiring approximately 10 minutes of CPR with return of spontaneous circulation on 02/12/2024. Significant hypotension requiring norepinephrine, vasopressin and Elmo-Synephrine High-grade small bowel obstruction secondary to internal hernia right lower quadrant due to adhesions, status post exploratory laparotomy and lysis of adhesions. Postoperative day #2. Acute hypoxemic respiratory failure secondary to above, requiring postoperative mechanical ventilation management Acute kidney injury secondary to above Coronary artery disease, as reported above Ischemic cardiomyopathy, with an ejection fraction of 15 to 20% Hyponatremia, likely related to poor oral intake/solute intake improving Chronic obstructive pulmonary disease, appears stable History of lung cancer, reportedly currently undergoing systemic chemotherapy, last reported treatment was approximately 3 weeks ago Chronic hypoxemic respiratory failure, secondary to above, normally maintained on 4 L/min nasal cannula Former tobacco smoker Plan: The patient was seen and evaluated Chest x-ray, ABGs, labs and medications reviewed Continue with the current treatment plan Remains on maximum pressor support Prognosis is quite poor DNR CODE STATUS We will continue to follow I have personally seen and examined the patient, performed the documentation and the assessment and plan as written. Number of minutes spent on the visit: 15.
[2024-02-13 11:42] LABS: Glucose,Whole Blood 156 mg/dL (70-110)
--- NOTE | 2024-02-13 12:47 | P.PN ---
Subjective Progress Note Date: 02/13/24 CHIEF COMPLAINT: SBO HISTORY OF PRESENT ILLNESS: Patient is postop day #2 status post exploratory laparotomy with lysis of adhesions for high-grade small bowel obstruction secondary to internal hernia due to adhesions. Patient is in the ICU and is intubated and on mechanical ventilation. Patient remains on high dose of Levophed and vasopressin. Also on Neosynephrine. Patient did have a CODE BLUE called yesterday. He was found to be hypotensive and in atrial fibrillation. He was cardioverted 3 times. Patient is on IV heparin and amiodarone for A-fib. Patient had a low-grade temp yesterday of 100.5. WBC up from 17-20.9 Hgb 8.6 Patient seen and examined with Dr. Vu PHYSICAL EXAM: VITAL SIGNS: Reviewed. GENERAL: no acute distress. ABDOMEN: Softer. mildly distended. Incisional dressing clean dry and intact NEUROLOGIC: Alert and oriented. Cranial nerves II through XII grossly intact. ASSESSMENT: 1. High-grade small bowel obstruction secondary to internal hernia due to adhe sions 2. Acute coronary syndrome 3. Hx of lung cancer 4. History of cardiomyopathy and low EF PLAN: -Consult dietitian to start TPN for nutrition support -Continue ICU management -Continue supportive care -Continue IV fluids -Continue antibiotics -Change surgical dressing to Optifoam -DVT prophylaxis IV heparin -Code status DNR Physician Monitoring And Evaluation Advisor note has been reviewed by physician. Signing provider agrees with the documented findings, assessment, and plan of care. Objective - Vital Signs Vital signs: Vital Signs Temp 99.3 F 02/13/24 08:00 Pulse 79 02/13/24 10:00 Resp 18 02/13/24 10:00 BP 99/66 02/13/24 08:00 Pulse Ox 99 02/13/24 10:00 FiO2 50 02/13/24 08:29 Intake & Output 02/12/24 02/13/24 02/13/24 18:59 06:59 18:59 Intake Total 2657.842 3359.571 690.248 Output Total 305 672 110 Balance 2352.842 2687.571 580.248 Weight 65.4 kg Intake: IV 2131 2312 404 0.9 Sodium Chloride 140 240 80 carrier Piperacillin-Tazobactam 3 100 175 .375 gm In Sodium Chloride 0.9% 100 ml @ 25 mls/hr IVPB Q8HR [facility] Rx# :[id number] Pressure Bag (0.9 Sodium 66 72 24 Chloride) Sodium Chloride 0.9% 1, 1825 1825 300 000 ml @ 75 mls/hr IV . [id number] [facility] Rx#:[id number] Intake, IV Titration 183.204 0951.571 206.248 Amount DOBUTamine DRIP 500 mg In 12.423 Dextrose/Water 1 250ml. bag @ 2 MCG/KG/MIN 3.627 mls/hr IV .Q24H [facility] Rx#: [id number] Heparin Sod,Pork in 0.45% 86.806 NaCl 25,000 unit In 0.45 % NaCl 1 250ml.bag @ 12 UNITS/KG/HR 7.254 mls/hr IV .Q24H [facility] Rx#: [id number] Magnesium Sulfate-D5w Pmx 200 1 gm In Dextrose/Water 1 100ml.bag @ 100 mls/hr IVPB Q1H [facility] Rx#: [id number] Norepinephrine 32 mg In 118.749 82.174 Sodium Chloride 0.9% 218 ml @ 0.5 MCG/KG/MIN 14. 168 mls/hr IV .[id number] [facility] Rx#:[id number] Norepinephrine 4 mg In 253.909 Sodium Chloride 0.9% 250 ml @ 0.03 MCG/KG/MIN 6.74 mls/hr IV .Q24H [facility] Rx#: [id number] Phenylephrine 40 mg In 7.677 261.943 206.248 Sodium Chloride 0.9% 250 ml @ 1 MCG/KG/MIN 23.031 mls/hr IV .Q11H2M [facility] Rx# :[id number] Potassium Chloride 10 meq 200 In Water For Injection 1 100ml.bag @ 100 mls/hr IVPB Q1H [facility] Rx#: [id number] Vasopressin 20 unit In 51 42.636 Sodium Chloride 0.9% 50 ml @ 0.04 UNITS/MIN 6.12 mls/hr IV .[id number] [facility] Rx# :[id number] propofoL 1,000 mg In 83.084 174.012 Empty Bag 1 bag @ 15 MCG/ KG/MIN 5.307 mls/hr IV . [id number] [facility] Rx#:[id number] Oral 80 Output: Gastric Drainage 350 Urine 305 322 110 Other: Voiding Method Indwelling Catheter Indwelling Catheter Indwelling Catheter ABP, PAP, CO, CI - Last Documented Arterial Blood Pressure 104/67 - Labs CBC & Chem 7: 02/13/24 04:40 02/13/24 04:40 Labs: Abnormal Lab Results - Last 24 Hours (Table) 02/12/24 02/12/24 02/12/24 Range/Units 05:13 11:40 21:06 WBC (3.8-10.6) k/uL RBC (4.30-5.90) m/uL Hgb (13.0-17.5) gm/dL Hct (39.0-53.0) % MCV (80.0-100.0) fL RDW (11.5-15.5) % Neutrophils # (Manual) (1.3-7.7) k/uL Metamyelocytes # (Man) (0) k/uL Myelocytes # (Manual) (0) k/uL Macrocytosis APTT 53.6 H (22.0-30.0) sec ABG pH (7.35-7.45) ABG pCO2 (35-45) mmHg ABG Total CO2 (19-24) mmol/L ABG O2 Saturation (94-97) % Sodium 134 L (137-145) mmol/L BUN 44 H (9-20) mg/dL Creatinine 1.73 H (0.66-1.25) mg/dL Glucose (74-99) mg/dL POC Glucose (mg/dL) (70-110) mg/dL Calcium (8.4-10.2) mg/dL Magnesium (1.6-2.3) mg/dL Total Protein (6.3-8.2) g/dL Albumin (3.5-5.0) g/dL Procalcitonin 4.10 H (0.02-0.09) ng/mL 02/12/24 02/12/24 02/12/24 Range/Units 21:48 23:46 23:47 WBC (3.8-10.6) k/uL RBC (4.30-5.90) m/uL Hgb (13.0-17.5) gm/dL Hct (39.0-53.0) % MCV (80.0-100.0) fL RDW (11.5-15.5) % Neutrophils # (Manual) (1.3-7.7) k/uL Metamyelocytes # (Man) (0) k/uL Myelocytes # (Manual) (0) k/uL Macrocytosis APTT 47.3 H (22.0-30.0) sec ABG pH (7.35-7.45) ABG pCO2 (35-45) mmHg ABG Total CO2 (19-24) mmol/L ABG O2 Saturation (94-97) % Sodium 136 L (137-145) mmol/L BUN 43 H (9-20) mg/dL Creatinine 1.73 H (0.66-1.25) mg/dL Glucose 138 H (74-99) mg/dL POC Glucose (mg/dL) 179 H (70-110) mg/dL Calcium 6.9 L (8.4-10.2) mg/dL Magnesium 2.4 H (1.6-2.3) mg/dL Total Protein 4.1 L (6.3-8.2) g/dL Albumin 2.1 L (3.5-5.0) g/dL Procalcitonin (0.02-0.09) ng/mL 02/13/24 02/13/24 02/13/24 Range/Units 04:40 04:40 04:40 WBC 20.9 H (3.8-10.6) k/uL RBC 2.54 L (4.30-5.90) m/uL Hgb 8.6 L (13.0-17.5) gm/dL Hct 27.5 L (39.0-53.0) % MCV 108.3 H D (80.0-100.0) fL RDW 18.3 H (11.5-15.5) % Neutrophils # (Manual) 18.60 H (1.3-7.7) k/uL Metamyelocytes # (Man) 0.63 H (0) k/uL Myelocytes # (Manual) 0.42 H (0) k/uL Macrocytosis Marked A APTT 41.8 H (22.0-30.0) sec ABG pH (7.35-7.45) ABG pCO2 (35-45) mmHg ABG Total CO2 (19-24) mmol/L ABG O2 Saturation (94-97) % Sodium 135 L (137-145) mmol/L BUN 43 H (9-20) mg/dL Creatinine 1.80 H (0.66-1.25) mg/dL Glucose 168 H (74-99) mg/dL POC Glucose (mg/dL) (70-110) mg/dL Calcium 7.0 L (8.4-10.2) mg/dL Magnesium 2.7 H (1.6-2.3) mg/dL Total Protein 4.3 L (6.3-8.2) g/dL Albumin 2.1 L (3.5-5.0) g/dL Procalcitonin (0.02-0.09) ng/mL 02/13/24 02/13/24 Range/Units 05:28 05:42 WBC (3.8-10.6) k/uL RBC (4.30-5.90) m/uL Hgb (13.0-17.5) gm/dL Hct (39.0-53.0) % MCV (80.0-100.0) fL RDW (11.5-15.5) % Neutrophils # (Manual) (1.3-7.7) k/uL Metamyelocytes # (Man) (0) k/uL Myelocytes # (Manual) (0) k/uL Macrocytosis APTT (22.0-30.0) sec ABG pH 7.24 L (7.35-7.45) ABG pCO2 59 H (35-45) mmHg ABG Total CO2 27 H (19-24) mmol/L ABG O2 Saturation 98.4 H (94-97) % Sodium (137-145) mmol/L BUN (9-20) mg/dL Creatinine (0.66-1.25) mg/dL Glucose (74-99) mg/dL POC Glucose (mg/dL) 206 H (70-110) mg/dL Calcium (8.4-10.2) mg/dL Magnesium (1.6-2.3) mg/dL Total Protein (6.3-8.2) g/dL Albumin (3.5-5.0) g/dL Procalcitonin (0.02-0.09) ng/mL Microbiology - Last 24 Hours (Table) 02/10/24 14:45 Blood Culture - Preliminary Blood 02/10/24 14:30 Blood Culture - Preliminary Blood
--- NOTE | 2024-02-13 13:30 | P.PN ---
Subjective Progress Note Date: 02/13/24 Patient is seen for follow-up for acute kidney injury. Status post lysis of adhesions and repair of hernia on 02/11/2024. Status post cardiac arrest with cardioversion 02/12/2024. He remains on high-dose pressers and patient is also intubated. Urine output is minimal at 20 to 25 mL. FiO2 at 50%. Serum creatinine has worsened to 1.8 from 1.73 Calcium at 7; albumin 2.1. Objective - Vital Signs Vital signs: Vital Signs Temp 98.7 F 02/13/24 04:00 Pulse 74 02/13/24 07:00 Resp 14 02/13/24 07:00 BP 98/68 02/13/24 07:00 Pulse Ox 100 02/13/24 07:00 FiO2 50 02/13/24 04:00 Intake & Output 02/12/24 02/13/24 02/13/24 18:59 06:59 18:59 Intake Total 2657.842 3359.571 101 Output Total 305 672 30 Balance 2352.842 2687.571 71 Weight 65.4 kg Intake: IV 2131 2312 101 0.9 Sodium Chloride 140 240 20 carrier Piperacillin-Tazobactam 3 100 175 .375 gm In Sodium Chloride 0.9% 100 ml @ 25 mls/hr IVPB Q8HR [facility] Rx# :[id number] Pressure Bag (0.9 Sodium 66 72 6 Chloride) Sodium Chloride 0.9% 1, 1825 1825 75 000 ml @ 75 mls/hr IV . [id number] [facility] Rx#:[id number] Intake, IV Titration 158.140 1567.571 Amount DOBUTamine DRIP 500 mg In 12.423 Dextrose/Water 1 250ml. bag @ 2 MCG/KG/MIN 3.627 mls/hr IV .Q24H [facility] Rx#: [id number] Heparin Sod,Pork in 0.45% 86.806 NaCl 25,000 unit In 0.45 % NaCl 1 250ml.bag @ 12 UNITS/KG/HR 7.254 mls/hr IV .Q24H [facility] Rx#: [id number] Magnesium Sulfate-D5w Pmx 200 1 gm In Dextrose/Water 1 100ml.bag @ 100 mls/hr IVPB Q1H [facility] Rx#: [id number] Norepinephrine 32 mg In 118.749 82.174 Sodium Chloride 0.9% 218 ml @ 0.5 MCG/KG/MIN 14. 168 mls/hr IV .[id number] [facility] Rx#:[id number] Norepinephrine 4 mg In 253.909 Sodium Chloride 0.9% 250 ml @ 0.03 MCG/KG/MIN 6.74 mls/hr IV .Q24H [facility] Rx#: [id number] Phenylephrine 40 mg In 7.677 261.943 Sodium Chloride 0.9% 250 ml @ 1 MCG/KG/MIN 23.031 mls/hr IV .[id number] [facility] Rx# :[id number] Potassium Chloride 10 meq 200 In Water For Injection 1 100ml.bag @ 100 mls/hr IVPB Q1H [facility] Rx#: [id number] Vasopressin 20 unit In 51 42.636 Sodium Chloride 0.9% 50 ml @ 0.04 UNITS/MIN 6.12 mls/hr IV .[id number] [facility] Rx# :[id number] propofoL 1,000 mg In 83.084 174.012 Empty Bag 1 bag @ 15 MCG/ KG/MIN 5.307 mls/hr IV . [id number] [facility] Rx#:[id number] Output: Gastric Drainage 350 Urine 305 322 30 Other: Voiding Method Indwelling Catheter Indwelling Catheter ABP, PAP, CO, CI - Last Documented Arterial Blood Pressure 86/51 - Exam Vital signs are stable. General: Patient is intubated and sedated. Lungs: Bilateral breath sounds present. Heart: Rate and rhythm are regular. Extremities: 1+ edema present. - Labs CBC & Chem 7: 02/14/24 04:15 02/14/24 04:15 Labs: Abnormal Lab Results - Last 24 Hours (Table) 02/11/24 02/12/24 02/12/24 Range/Units 20:40 05:13 11:40 WBC (3.8-10.6) k/uL RBC (4.30-5.90) m/uL Hgb (13.0-17.5) gm/dL Hct (39.0-53.0) % MCV (80.0-100.0) fL RDW (11.5-15.5) % Neutrophils # (Manual) (1.3-7.7) k/uL Metamyelocytes # (Man) (0) k/uL Myelocytes # (Manual) (0) k/uL Macrocytosis APTT (22.0-30.0) sec ABG pH (7.35-7.45) ABG pCO2 (35-45) mmHg ABG Total CO2 (19-24) mmol/L ABG O2 Saturation (94-97) % Sodium 134 L (137-145) mmol/L BUN 44 H (9-20) mg/dL Creatinine 1.73 H (0.66-1.25) mg/dL Glucose (74-99) mg/dL POC Glucose (mg/dL) (70-110) mg/dL Calcium (8.4-10.2) mg/dL Magnesium (1.6-2.3) mg/dL Total Protein (6.3-8.2) g/dL Albumin (3.5-5.0) g/dL Procalcitonin 4.10 H (0.02-0.09) ng/mL Cortisol 28.5 H (3.1-22.4) UG/DL 02/12/24 02/12/24 02/12/24 Range/Units 21:06 21:48 23:46 WBC (3.8-10.6) k/uL RBC (4.30-5.90) m/uL Hgb (13.0-17.5) gm/dL Hct (39.0-53.0) % MCV (80.0-100.0) fL RDW (11.5-15.5) % Neutrophils # (Manual) (1.3-7.7) k/uL Metamyelocytes # (Man) (0) k/uL Myelocytes # (Manual) (0) k/uL Macrocytosis APTT 53.6 H 47.3 H (22.0-30.0) sec ABG pH (7.35-7.45) ABG pCO2 (35-45) mmHg ABG Total CO2 (19-24) mmol/L ABG O2 Saturation (94-97) % Sodium 136 L (137-145) mmol/L BUN 43 H (9-20) mg/dL Creatinine 1.73 H (0.66-1.25) mg/dL Glucose 138 H (74-99) mg/dL POC Glucose (mg/dL) (70-110) mg/dL Calcium 6.9 L (8.4-10.2) mg/dL Magnesium 2.4 H (1.6-2.3) mg/dL Total Protein 4.1 L (6.3-8.2) g/dL Albumin 2.1 L (3.5-5.0) g/dL Procalcitonin (0.02-0.09) ng/mL Cortisol (3.1-22.4) UG/DL 02/12/24 02/13/24 02/13/24 Range/Units 23:47 04:40 04:40 WBC 20.9 H (3.8-10.6) k/uL RBC 2.54 L (4.30-5.90) m/uL Hgb 8.6 L (13.0-17.5) gm/dL Hct 27.5 L (39.0-53.0) % MCV 108.3 H D (80.0-100.0) fL RDW 18.3 H (11.5-15.5) % Neutrophils # (Manual) 18.60 H (1.3-7.7) k/uL Metamyelocytes # (Man) 0.63 H (0) k/uL Myelocytes # (Manual) 0.42 H (0) k/uL Macrocytosis Marked A APTT (22.0-30.0) sec ABG pH (7.35-7.45) ABG pCO2 (35-45) mmHg ABG Total CO2 (19-24) mmol/L ABG O2 Saturation (94-97) % Sodium 135 L (137-145) mmol/L BUN 43 H (9-20) mg/dL Creatinine 1.80 H (0.66-1.25) mg/dL Glucose 168 H (74-99) mg/dL POC Glucose (mg/dL) 179 H (70-110) mg/dL Calcium 7.0 L (8.4-10.2) mg/dL Magnesium 2.7 H (1.6-2.3) mg/dL Total Protein 4.3 L (6.3-8.2) g/dL Albumin 2.1 L (3.5-5.0) g/dL Procalcitonin (0.02-0.09) ng/mL Cortisol (3.1-22.4) UG/DL 02/13/24 02/13/24 02/13/24 Range/Units 04:40 05:28 05:42 WBC (3.8-10.6) k/uL RBC (4.30-5.90) m/uL Hgb (13.0-17.5) gm/dL Hct (39.0-53.0) % MCV (80.0-100.0) fL RDW (11.5-15.5) % Neutrophils # (Manual) (1.3-7.7) k/uL Metamyelocytes # (Man) (0) k/uL Myelocytes # (Manual) (0) k/uL Macrocytosis APTT 41.8 H (22.0-30.0) sec ABG pH 7.24 L (7.35-7.45) ABG pCO2 59 H (35-45) mmHg ABG Total CO2 27 H (19-24) mmol/L ABG O2 Saturation 98.4 H (94-97) % Sodium (137-145) mmol/L BUN (9-20) mg/dL Creatinine (0.66-1.25) mg/dL Glucose (74-99) mg/dL POC Glucose (mg/dL) 206 H (70-110) mg/dL Calcium (8.4-10.2) mg/dL Magnesium (1.6-2.3) mg/dL Total Protein (6.3-8.2) g/dL Albumin (3.5-5.0) g/dL Procalcitonin (0.02-0.09) ng/mL Cortisol (3.1-22.4) UG/DL Microbiology - Last 24 Hours (Table) 02/10/24 14:45 Blood Culture - Preliminary Blood 02/10/24 14:30 Blood Culture - Preliminary Blood Assessment and Plan Assessment: 1. Acute kidney injury. Secondary to ATN from hypotension. No obstruction noted on CT. Check UA. Continue with IV fluids. Status post cardiac catheterization 02/10/2024. 2. Hyperkalemia. Associated with acute kidney injury. Rule out adrenal insufficiency. Cortisol levels elevated. Potassium improved to 4.2 today. 3. Hypovolemic hyponatremia. Maintained on normal saline. Improving. 4. NSTEMI. 5. Cardiomyopathy. EF 15-20% on echo 02/10/2024. 6. Small bowel obstruction. Being followed by surgery. Currently with NG tube. Plan: Continue with IV fluids. Avoid nephrotoxic agents. Continue with antibiotics. Wean down pressers as tolerated. Agree with patient's findings assessment and plan.
--- NOTE | 2024-02-13 14:47 | P.PN ---
Subjective Progress Note Date: 02/13/24 Principal diagnosis: STEMI 73-year-old male with a past medical history of CAD status post stenting, lung cancer currently undergoing chemotherapy, COPD with chronic respiratory failure 3 L home oxygen dependent, and severe protein calorie malnutrition with cachexia. He presented to the emergency department on 02/10/2024 with a chief complaint of abdominal pain. Vital signs upon arrival show blood pressure 76/61, heart rate 100, respiratory rate 20, temp 98.7 F, and SpO2 of 88% on 4 L. EKG was completed showing sinus tachycardia at [address] elevation and T wave inversion in inferior and anterior leads II, III, aVF and V2 through V4. Labs were completed and reviewed. CBC showing hemoglobin 11.9 and platelet count of 560. BMP showing hyponatremia with sodium 129, hyperkalemia with potassium of 5.5, and prerenal azotemia with BUN of 48, creatinine of 1.18, GFR of 62. Liver profile showing hypoalbuminemia with albumin of 3.4. Troponin was elevated at 56.800. CT abdomen and pelvis showing bilateral lower lobe airspace infiltrates with pleural effusion left greater than right and marked distal small bowel obstruction. NG-tube was inserted to low intermittent suction and patient was placed on heparin infusion for treatment of STEMI. Patient admitted under our services with consultation to cardiology, general surgery, and pulmonology. 02/12 CHITRA SANDERS was called. was found to be hypotensive and in atrial fi brillation. He was in unstable A-fib, he was cardioverted 3 times. He was given multiple rounds of epinephrine. He was also given sodium bicarb. He was given 3 boluses of amiodarone. He was started on amiodarone drip. Due to persistent hypotension, he was started on a third pressor with Elmo-Synephrine. Discussed with , wants to talk to brothers before changing CODE STATUS. Overall, prognosis is very poor. 02/13 Seen and examined. On 3 pressors currently. Sedated with propofol. No overnight events. Currently changed to DNR. Objective - Vital Signs Vital signs: Vital Signs Temp 99.3 F 02/13/24 08:00 Pulse 77 02/13/24 14:00 Resp 17 02/13/24 14:00 BP 99/66 02/13/24 08:00 Pulse Ox 100 02/13/24 14:00 FiO2 50 02/13/24 12:00 Intake & Output 02/12/24 02/13/24 02/13/24 18:59 06:59 18:59 Intake Total 2657.842 3359.571 1546.364 Output Total 305 672 235 Balance 2352.842 2687.571 1311.364 Weight 65.4 kg 65.4 kg Intake: IV 2131 2312 908 0.9 Sodium Chloride 140 240 160 carrier Piperacillin-Tazobactam 3 100 175 100 .375 gm In Sodium Chloride 0.9% 100 ml @ 25 mls/hr IVPB Q8HR [facility] Rx# :[id number] Pressure Bag (0.9 Sodium 66 72 48 Chloride) Sodium Chloride 0.9% 1, 1825 1825 600 000 ml @ 75 mls/hr IV . [id number] [facility] Rx#:[id number] Intake, IV Titration 297.096 3817.571 558.364 Amount Amiodarone 450 mg In 198.893 Dextrose 5% in Water 250 ml @ 0.5 MG/MIN 16.667 mls/hr IV .Q15H [facility] Rx#: [id number] DOBUTamine DRIP 500 mg In 12.423 Dextrose/Water 1 250ml. bag @ 2 MCG/KG/MIN 3.627 mls/hr IV .Q24H [facility] Rx#: [id number] Heparin Sod,Pork in 0.45% 86.806 NaCl 25,000 unit In 0.45 % NaCl 1 250ml.bag @ 12 UNITS/KG/HR 7.254 mls/hr IV .Q24H [facility] Rx#: [id number] Magnesium Sulfate-D5w Pmx 200 1 gm In Dextrose/Water 1 100ml.bag @ 100 mls/hr IVPB Q1H [facility] Rx#: [id number] Norepinephrine 32 mg In 118.749 82.174 Sodium Chloride 0.9% 218 ml @ 0.5 MCG/KG/MIN 14. 168 mls/hr IV .[id number] [facility] Rx#:[id number] Norepinephrine 4 mg In 253.909 Sodium Chloride 0.9% 250 ml @ 0.03 MCG/KG/MIN 6.74 mls/hr IV .Q24H [facility] Rx#: [id number] Phenylephrine 40 mg In 7.677 261.943 308.471 Sodium Chloride 0.9% 250 ml @ 1 MCG/KG/MIN 23.031 mls/hr IV .Q11H2M [facility] Rx# :[id number] Potassium Chloride 10 meq 200 In Water For Injection 1 100ml.bag @ 100 mls/hr IVPB Q1H [facility] Rx#: [id number] Vasopressin 20 unit In 51 42.636 51 Sodium Chloride 0.9% 50 ml @ 0.04 UNITS/MIN 6.12 mls/hr IV .Q8H20M [facility] Rx# :[id number] propofoL 1,000 mg In 83.084 174.012 Empty Bag 1 bag @ 15 MCG/ KG/MIN 5.307 mls/hr IV . [id number] [facility] Rx#:[id number] Oral 80 Output: Gastric Drainage 350 Urine 305 322 235 Other: Voiding Method Indwelling Catheter Indwelling Catheter Indwelling Catheter ABP, PAP, CO, CI - Last Documented Arterial Blood Pressure 95/56 - Exam Vitals: Reviewed General: Intubated on the vent Cardiovascular: RRR, S1-S2 Lungs: Breath sounds equal, transmitted upper airway sounds Extremities: 1+ pedal edema - Labs CBC & Chem 7: 02/13/24 04:40 02/13/24 04:40 Labs: Abnormal Lab Results - Last 24 Hours (Table) 02/12/24 02/12/24 02/12/24 Range/Units 05:13 21:06 21:48 WBC (3.8-10.6) k/uL RBC (4.30-5.90) m/uL Hgb (13.0-17.5) gm/dL Hct (39.0-53.0) % MCV (80.0-100.0) fL RDW (11.5-15.5) % Neutrophils # (Manual) (1.3-7.7) k/uL Metamyelocytes # (Man) (0) k/uL Myelocytes # (Manual) (0) k/uL Macrocytosis APTT 53.6 H (22.0-30.0) sec ABG pH (7.35-7.45) ABG pCO2 (35-45) mmHg ABG Total CO2 (19-24) mmol/L ABG O2 Saturation (94-97) % Sodium 136 L (137-145) mmol/L BUN 43 H (9-20) mg/dL Creatinine 1.73 H (0.66-1.25) mg/dL Glucose 138 H (74-99) mg/dL POC Glucose (mg/dL) (70-110) mg/dL Calcium 6.9 L (8.4-10.2) mg/dL Magnesium 2.4 H (1.6-2.3) mg/dL Total Protein 4.1 L (6.3-8.2) g/dL Albumin 2.1 L (3.5-5.0) g/dL Procalcitonin 4.10 H (0.02-0.09) ng/mL 02/12/24 02/12/24 02/13/24 Range/Units 23:46 23:47 04:40 WBC (3.8-10.6) k/uL RBC (4.30-5.90) m/uL Hgb (13.0-17.5) gm/dL Hct (39.0-53.0) % MCV (80.0-100.0) fL RDW (11.5-15.5) % Neutrophils # (Manual) (1.3-7.7) k/uL Metamyelocytes # (Man) (0) k/uL Myelocytes # (Manual) (0) k/uL Macrocytosis APTT 47.3 H (22.0-30.0) sec ABG pH (7.35-7.45) ABG pCO2 (35-45) mmHg ABG Total CO2 (19-24) mmol/L ABG O2 Saturation (94-97) % Sodium 135 L (137-145) mmol/L BUN 43 H (9-20) mg/dL Creatinine 1.80 H (0.66-1.25) mg/dL Glucose 168 H (74-99) mg/dL POC Glucose (mg/dL) 179 H (70-110) mg/dL Calcium 7.0 L (8.4-10.2) mg/dL Magnesium 2.7 H (1.6-2.3) mg/dL Total Protein 4.3 L (6.3-8.2) g/dL Albumin 2.1 L (3.5-5.0) g/dL Procalcitonin (0.02-0.09) ng/mL 02/13/24 02/13/24 02/13/24 Range/Units 04:40 04:40 05:28 WBC 20.9 H (3.8-10.6) k/uL RBC 2.54 L (4.30-5.90) m/uL Hgb 8.6 L (13.0-17.5) gm/dL Hct 27.5 L (39.0-53.0) % MCV 108.3 H D (80.0-100.0) fL RDW 18.3 H (11.5-15.5) % Neutrophils # (Manual) 18.60 H (1.3-7.7) k/uL Metamyelocytes # (Man) 0.63 H (0) k/uL Myelocytes # (Manual) 0.42 H (0) k/uL Macrocytosis Marked A APTT 41.8 H (22.0-30.0) sec ABG pH (7.35-7.45) ABG pCO2 (35-45) mmHg ABG Total CO2 (19-24) mmol/L ABG O2 Saturation (94-97) % Sodium (137-145) mmol/L BUN (9-20) mg/dL Creatinine (0.66-1.25) mg/dL Glucose (74-99) mg/dL POC Glucose (mg/dL) 206 H (70-110) mg/dL Calcium (8.4-10.2) mg/dL Magnesium (1.6-2.3) mg/dL Total Protein (6.3-8.2) g/dL Albumin (3.5-5.0) g/dL Procalcitonin (0.02-0.09) ng/mL 02/13/24 02/13/24 02/13/24 Range/Units 05:42 11:39 12:03 WBC (3.8-10.6) k/uL RBC (4.30-5.90) m/uL Hgb (13.0-17.5) gm/dL Hct (39.0-53.0) % MCV (80.0-100.0) fL RDW (11.5-15.5) % Neutrophils # (Manual) (1.3-7.7) k/uL Metamyelocytes # (Man) (0) k/uL Myelocytes # (Manual) (0) k/uL Macrocytosis APTT 52.0 H (22.0-30.0) sec ABG pH 7.24 L (7.35-7.45) ABG pCO2 59 H (35-45) mmHg ABG Total CO2 27 H (19-24) mmol/L ABG O2 Saturation 98.4 H (94-97) % Sodium (137-145) mmol/L BUN (9-20) mg/dL Creatinine (0.66-1.25) mg/dL Glucose (74-99) mg/dL POC Glucose (mg/dL) 156 H (70-110) mg/dL Calcium (8.4-10.2) mg/dL Magnesium (1.6-2.3) mg/dL Total Protein (6.3-8.2) g/dL Albumin (3.5-5.0) g/dL Procalcitonin (0.02-0.09) ng/mL Microbiology - Last 24 Hours (Table) 02/10/24 14:45 Blood Culture - Preliminary Blood 02/10/24 14:30 Blood Culture - Preliminary Blood Assessment and Plan Plan: SBO secondary to internal hernia right lower quadrant due to adhesions Status post ex lap with lysis of adhesions 02/10. On Zosyn. Surgery consulting with nutrition to start TPN STEMI Ischemic cardiomyopathy with EF 15 to 20% Status post heart catheterization, demonstrating chronic total occlusion of the RCA, critical disease involving the left circumflex, and severe disease involving the LAD. No plans for immediate surgical intervention. Cardiology is treating the patient medically at this point. Aspirin, statin and metoprolol Severe cardiogenic and septic shock requiring norepinephrine, vasopressin and Elmo-Synephrine Acute kidney injury Likely secondary to hemodynamic instability. Nephrology following. Monitor urine output. Cardiac arrest requiring approximately 10 minutes of CPR with return of spontaneous circulation on 02/12/2024. Acute hypoxemic respiratory failure secondary to above, requiring postoperative mechanical ventilation management Hyponatremia, likely related to poor oral intake/solute intake improving IV fluids, monitor Chronic obstructive pulmonary disease, appears stable History of lung cancer, reportedly currently undergoing systemic chemotherapy, last reported treatment was approximately 3 weeks ago Chronic hypoxemic respiratory failure, secondary to above, normally maintained on 4 L/min nasal cannula Former tobacco smoker VTE prophylaxis: Subcu heparin GI prophylaxis: PPI DNR CODE STATUS We will continue to follow
[2024-02-13] MEDS: MVI, ADULT NO.4 WITH VIT K 10 ML, TRACE (CONC-1ML/DOSE) 1 ML, SODIUM ACETATE 30 MEQ, PO... IV ONE (17:49)
[2024-02-13 17:55] LABS: Glucose,Whole Blood 179 mg/dL (70-110)
[2024-02-13 23:05] LABS: Glucose,Whole Blood 205 mg/dL (70-110)
[2024-02-14] MEDS ORDERED: SODIUM CHLORIDE 0.9% 1,000 ML BAG ONE (00:20)
[2024-02-14] MEDS: AMIODARONE 200 MG TAB PO SCH (03:46)
[2024-02-14 04:24] LABS: ABG Base Excess -1.2 mmol/L; ABG HCO3 26 mmol/L (21-25); ABG Oxygen Saturation 98.1 % (94-97); ABG PCO2 58 mmHg (35-45); ABG PH 7.26 (7.35-7.45); ABG PO2 97 mmHg (83-108); ABG TCO2 28 mmol/L (19-24); Allen Test Performed? Yes
[2024-02-14 04:44] LABS: Anisocytosis Slight; HCT 25.7 % (39.0-53.0); HGB 7.9 gm/dL (13.0-17.5); Hypochromasia Marked; MCH 32.6 pg (25.0-35.0); MCHC 30.8 g/dL (31.0-37.0); MCV 105.9 fL (80.0-100.0); Macrocytosis Marked; Mean Platelet Volume 8.2; Platelet Count 257 k/uL (150-450); RBC 2.42 m/uL (4.30-5.90); RDW 18.3 % (11.5-15.5)
[2024-02-14 04:55] LABS: Ionized Calcium 4.4 mg/dL (4.5-5.3)
[2024-02-14 05:04] LABS: ALT 18 U/L (4-49); AST 30 U/L (17-59); African American GFR (CKD) 46 (>60 ml/min/1.73 sqM); Alkaline Phosphatase 60 U/L (38-126); Anion Gap 4 mmol/L; Blood Urea Nitrogen 45 mg/dL (9-20); Calcium 7.1 mg/dL (8.4-10.2); Carbon Dioxide 24 mmol/L (22-30); Chloride 105 mmol/L (98-107); Glucose 220 mg/dL (74-99); Magnesium 2.4 mg/dL (1.6-2.3); Non-African American GFR(CKD) 40 (>60 ml/min/1.73 sqM); Potassium 3.7 mmol/L (3.5-5.1); Sodium 133 mmol/L (137-145); Total Bilirubin 0.4 mg/dL (0.2-1.3)
[2024-02-14 05:18] LABS: Phosphorus 4.9 mg/dL (2.5-4.5)
[2024-02-14 05:24] LABS: Glucose,Whole Blood 264 mg/dL (70-110)
[2024-02-14] MEDS: POTASSIUM BICARBONATE/CIT AC 20 MEQ TABLET.EFF NG-TUBE SCH ×2 (05:37→18:40)
--- NOTE | 2024-02-14 07:48 | XR ---
EXAMINATION TYPE: XR chest 1V portable DATE OF EXAM: 02/14/2024 COMPARISON: 02/13/2024 HISTORY: Shortness of breath TECHNIQUE: Single frontal view of the chest is obtained. FINDINGS: ET tube and NG-tube, central line Mediport stable. Emphysematous changes with bilateral co nsolidation and pleural effusion stable. Degenerative changes spine and arthropathy of the shoulders. . Elevated left hemidiaphragm stable. Air overlying the collection. Difficult to determine if this is related to the upper abdomen or air pleural space correlate clinically. IMPRESSION: Bilateral consolidation and pleural effusion stable. See above.
--- NOTE | 2024-02-14 07:53 | P.PN ---
Subjective Progress Note Date: 02/14/24 This is a 73-year-old gentleman with a past medical history significant for history of smoking and COPD and chronic hypoxic respiratory failure as well as history of lung cancer currently on chemotherapy with unknown details at this point. We consulted to see the patient in the emergency room for further evaluation of abnormal cardiac enzymes as well as abnormal EKG. The patient presented to the hospital with long cardiovascular symptoms including abdominal discomfort was associated with nausea. For some reasons he underwent further evaluation including an EKG and that showed sinus mechanism with ST segment elevation in the anteroseptal leads with already Q waves in the anteroseptal leads as well. Subsequently troponin was performed and came to be also abnormal. Also on examination the patient was found to have abdominal wall distention and abdominal tenderness with further evaluation showed small bowel obstruction which was extremely severe. The patient did not report any symptoms of chest pain or chest discomfort or any dizziness or lightheadedness or presyncope or syncope and no history of CAD or heart failure or cardiac arrhythmia and never seen any leather roller before. Subsequently initially medical treatment only was advised giving the absence of any chest pain or chest discomfort as well as the patient probably completed an infarct. The patient was seen after that by the surgical team and he was deemed to be not needing any surgery at this point. Further evaluation was performed including an echo and that showed severe cardiomyopathy with EF around 20%. Subsequently patient underwent a heart catheterization which revealed chronic total occlusion of the RCA which fills by collaterals from the left coronary system along with severe disease involving the LCx and severe disease involving the LAD but both the LCx and LAD have DEB-3 flow. I felt at this point doing percutaneous revascularization will not help the patient in case he need to have surgery down the line. With that being said I am going to maximize medical treatment at this point and optimize medical treatment for cardiomyopathy as well as CAD and acute coronary syndrome. The examination revealed mild sinus tachycardia with soft blood pressure and diminished breathing sounds bilaterally and no edema was noted in the lower extremities. February 12, 2024 The patient was seen and evaluated this morning. He underwent abdominal surgery yesterday with lysis of adhesion. Currently he is intubated on mechanical ventilation but he is hypotensive requiring norepinephrine at high dose. I am going to start the patient on dobutamine and try to come down with norepinephrine giving the cardiomyopathy and low EF and the acute coronary syndrome. Otherwise the urine output is marginal. The examination is remarkable for intubated patient with diminished breathing sounds bilaterally and no edema was noted in the lower extremities February 13, 2024 The patient was seen and evaluated this morning. Apparently last night he did have an episode of tachycardia and reviewing the strips indicate possible SVT versus atrial flutter. He received cardioversion and subsequently he was started on amiodarone but he has been maintaining normal sinus mechanism but he continues to be hypotensive requiring vasopressors. Examination is remarkable for intubated patient on mechanical ventilation with diminished breathing sounds bilaterally and regular rate and rhythm with a and heart sounds February 14, 2024 The patient was seen this morning. He continues to be intubated on mechanical ventilation and he continues to be hemodynamically unstable requiring vasopressors. Beside that he went into an A-fib with RVR yesterday and he is in A-fib right now with overall heart rate above 100 bpm. Going to start the patient on amiodarone IV. He is on heparin IV beside that. The chest x-ray was reviewed. The blood work was reviewed. The examination is remarkable for irregular rhythm with diminished breathing sounds bilaterally and mild bilateral lower extremities edema Assessment Status post abdominal surgery Acute coronary syndrome Severe CAD Severe cardiomyopathy Cardiac arrhythmia with SVT versus atrial flutter Multiple comorbid conditions Plan Continue the current medical regimen DC amiodarone orally and start the patient on amiodarone IV Continue anticoagulation using heparin Consider switching the patient to oral anticoagulation Continue monitor the kidney function and electrolytes and hemoglobin Follow-up with the patient Objective - Vital Signs Vital signs: Vital Signs Temp 97.5 F L 02/14/24 04:00 Pulse 112 H 02/14/24 05:00 Resp 14 02/14/24 05:00 BP 78/52 02/14/24 01:45 Pulse Ox 100 02/14/24 05:00 FiO2 50 02/14/24 04:00 Intake & Output 02/13/24 02/14/24 02/14/24 18:59 06:59 18:59 Intake Total 2712.897 1550.224 Output Total 375 304 Balance 2337.897 1246.224 Weight 65.4 kg 66.8 kg Intake: IV 1567 1408 0.9 Sodium Chloride 260 220 carrier Mvi, Adult No.4 with Vit 60 330 K 10 ml Trace (Conc-1Ml/ Dose) 1 ml Sodium Acetate 30 meq Potassium Chloride 20 meq Calcium Gluconate 1 gm In Amino Acids 5 %/Dextrose 20 % 1 ,000 ml @ 35 mls/hr IV . Q24H [facility] Rx#:[id number] Piperacillin-Tazobactam 3 200 .375 gm In Sodium Chloride 0.9% 100 ml @ 25 mls/hr IVPB Q8HR [facility] Rx# :[id number] Pressure Bag (0.9 Sodium 72 33 Chloride) Sodium Chloride 0.9% 1, 975 825 000 ml @ 75 mls/hr IV . [id number] [facility] Rx#:[id number] Intake, IV Titration 1065.897 142.224 Amount Amiodarone 450 mg In 198.893 Dextrose 5% in Water 250 ml @ 0.5 MG/MIN 16.667 mls/hr IV .Q15H [facility] Rx#: [id number] Heparin Sod,Pork in 0.45% 102.402 NaCl 25,000 unit In 0.45 % NaCl 1 250ml.bag @ 12 UNITS/KG/HR 7.254 mls/hr IV .Q24H [facility] Rx#: [id number] Norepinephrine 32 mg In 250.000 42.224 Sodium Chloride 0.9% 218 ml @ 0.5 MCG/KG/MIN 14. 168 mls/hr IV .[id number] [facility] Rx#:[id number] Phenylephrine 40 mg In 329.967 Sodium Chloride 0.9% 250 ml @ 1 MCG/KG/MIN 23.031 mls/hr IV .Q11H2M [facility] Rx# :[id number] Piperacillin-Tazobactam 3 100 .375 gm In Sodium Chloride 0.9% 100 ml @ 25 mls/hr IVPB Q8HR [facility] Rx# :[id number] Vasopressin 20 unit In 84.635 0 Sodium Chloride 0.9% 50 ml @ 0.04 UNITS/MIN 6.12 mls/hr IV .Q8H20M [facility] Rx# :[id number] propofoL 1,000 mg In 100 Empty Bag 1 bag @ 15 MCG/ KG/MIN 5.307 mls/hr IV . [id number] [facility] Rx#:[id number] Oral 80 Tube Feeding 0 Output: Urine 375 304 Other: Voiding Method Indwelling Catheter Indwelling Catheter ABP, PAP, CO, CI - Last Documented Arterial Blood Pressure 102/60 - Labs CBC & Chem 7: 02/14/24 04:15 02/14/24 04:15 Labs: Abnormal Lab Results - Last 24 Hours (Table) 02/13/24 02/13/24 02/13/24 Range/Units 04:40 11:39 12:03 WBC (3.8-10.6) k/uL RBC (4.30-5.90) m/uL Hgb (13.0-17.5) gm/dL Hct (39.0-53.0) % MCV (80.0-100.0) fL MCHC (31.0-37.0) g/dL RDW (11.5-15.5) % Macrocytosis APTT 52.0 H (22.0-30.0) sec ABG pH (7.35-7.45) ABG pCO2 (35-45) mmHg ABG HCO3 (21-25) mmol/L ABG Total CO2 (19-24) mmol/L ABG O2 Saturation (94-97) % Sodium (137-145) mmol/L BUN (9-20) mg/dL Creatinine (0.66-1.25) mg/dL Glucose (74-99) mg/dL POC Glucose (mg/dL) 156 H (70-110) mg/dL Calcium (8.4-10.2) mg/dL Ionized Calcium [place] (4.5-5.3) mg/dL Phosphorus 5.9 H (2.5-4.5) mg/dL Magnesium (1.6-2.3) mg/dL Total Protein (6.3-8.2) g/dL Albumin (3.5-5.0) g/dL 02/13/24 02/13/24 02/14/24 Range/Units 17:43 23:03 04:15 WBC 16.0 H (3.8-10.6) k/uL RBC 2.42 L (4.30-5.90) m/uL Hgb 7.9 L (13.0-17.5) gm/dL Hct 25.7 L (39.0-53.0) % MCV 105.9 H (80.0-100.0) fL MCHC 30.8 L (31.0-37.0) g/dL RDW 18.3 H (11.5-15.5) % Macrocytosis Marked A APTT (22.0-30.0) sec ABG pH (7.35-7.45) ABG pCO2 (35-45) mmHg ABG HCO3 (21-25) mmol/L ABG Total CO2 (19-24) mmol/L ABG O2 Saturation (94-97) % Sodium (137-145) mmol/L BUN (9-20) mg/dL Creatinine (0.66-1.25) mg/dL Glucose (74-99) mg/dL POC Glucose (mg/dL) 179 H 205 H (70-110) mg/dL Calcium (8.4-10.2) mg/dL Ionized Calcium [place] (4.5-5.3) mg/dL Phosphorus (2.5-4.5) mg/dL Magnesium (1.6-2.3) mg/dL Total Protein (6.3-8.2) g/dL Albumin (3.5-5.0) g/dL 02/14/24 02/14/24 02/14/24 Range/Units 04:15 04:15 04:15 WBC (3.8-10.6) k/uL RBC (4.30-5.90) m/uL Hgb (13.0-17.5) gm/dL Hct (39.0-53.0) % MCV (80.0-100.0) fL MCHC (31.0-37.0) g/dL RDW (11.5-15.5) % Macrocytosis APTT 49.9 H (22.0-30.0) sec ABG pH (7.35-7.45) ABG pCO2 (35-45) mmHg ABG HCO3 (21-25) mmol/L ABG Total CO2 (19-24) mmol/L ABG O2 Saturation (94-97) % Sodium 133 L (137-145) mmol/L BUN 45 H (9-20) mg/dL Creatinine 1.70 H (0.66-1.25) mg/dL Glucose 220 H (74-99) mg/dL POC Glucose (mg/dL) (70-110) mg/dL Calcium 7.1 L (8.4-10.2) mg/dL Ionized Calcium [place] 4.4 L (4.5-5.3) mg/dL Phosphorus 4.9 H (2.5-4.5) mg/dL Magnesium 2.4 H (1.6-2.3) mg/dL Total Protein 4.0 L (6.3-8.2) g/dL Albumin 2.0 L (3.5-5.0) g/dL 02/14/24 02/14/24 Range/Units 04:20 05:22 WBC (3.8-10.6) k/uL RBC (4.30-5.90) m/uL Hgb (13.0-17.5) gm/dL Hct (39.0-53.0) % MCV (80.0-100.0) fL MCHC (31.0-37.0) g/dL RDW (11.5-15.5) % Macrocytosis APTT (22.0-30.0) sec ABG pH 7.26 L (7.35-7.45) ABG pCO2 58 H (35-45) mmHg ABG HCO3 26 H (21-25) mmol/L ABG Total CO2 28 H (19-24) mmol/L ABG O2 Saturation 98.1 H (94-97) % Sodium (137-145) mmol/L BUN (9-20) mg/dL Creatinine (0.66-1.25) mg/dL Glucose (74-99) mg/dL POC Glucose (mg/dL) 264 H (70-110) mg/dL Calcium (8.4-10.2) mg/dL Ionized Calcium [place] (4.5-5.3) mg/dL Phosphorus (2.5-4.5) mg/dL Magnesium (1.6-2.3) mg/dL Total Protein (6.3-8.2) g/dL Albumin (3.5-5.0) g/dL Microbiology - Last 24 Hours (Table) 02/10/24 14:45 Blood Culture - Preliminary Blood 02/10/24 14:30 Blood Culture - Preliminary Blood
[2024-02-14 08:57] LABS: Triglycerides 88.2 mg/dL (0.00-149.00)
[2024-02-14] MEDS: AMIODARONE 360 MG in DEXTROSE 5% IN WATER 200 ML IV ONE (09:14)
[2024-02-14] MEDS: CALCIUM GLUCONATE IN NACL 2 GM in SALINE 1 100ML.BAG IVPB ONE (10:10)
--- NOTE | 2024-02-14 10:48 | P.PN ---
Subjective Progress Note Date: 02/14/24 Patient is a 73-year-old white male with past medical history significant for COPD, chronic hypoxemic respiratory failure, lung cancer undergoing current systemic treatment, former tobacco smoker, among other things. Patient states that he has lung cancer diagnosed approximately 6 months ago at [facility]. He follows with an out-of-town oncologist, Dr. Rincon, who directs his treatments. He is chronically oxygen dependent on 4 L/min nasal cannula. Quit smoking over 2 years ago. He presents to the emergency department yesterday afternoon complaining of severe periumbilical abdominal pain, which reportedly started on . His appetite has been poor. Last bowel movement was rod roximately 4 days ago, and small/liquid. Denies any cookie blood loss. Abdominal/pelvis CT demonstrated marked distal small bowel obstruction with an uncertain transition point. No free intraperitoneal air or fluid. No definitive masses. Incidentally, bilateral lower lobe pleural effusions were s een. Questionable airspace infiltrates or atelectasis. During his initial workup in the emergency department, he was noted to have diffuse ST segment elevations, as well as, significantly elevated cardiac troponin. Denies prior history of coronary artery disease, prior cardiac stents, or heart attacks. He denies any chest pain, acute shortness of breath, nausea, diaphoresis. Does admit some increased bilateral lower extremity/ankle edema. CBC: WBC count 7, hemoglobin 11.9, hematocrit 37, platelets 560. CMP: Sodium 129, potassium 5.5, chloride 89, serum bicarb 36, BUN 48, creatinine 1.18, glucose 152. AST 128, ALT 39, ALP 71. Troponin 56.8. EKG showing diffuse ST elevation in leads II, III, aVF; V3, V4, V5. He did go to the Systems [facility] yesterday evening which demonstrated chronic total occlusion of the RCA, critical disease involving the left circumflex, and severe disease involving the LAD. Cardiology is treating the patient medically at this point. Follow-up echocardiogram estimating severely decreased left ventricular ejection fraction of 15 to 20%. There is hypokinesis involving the anterior wall and anterior septum. Patient is currently on the cardiac stepdown unit. He appears comfortable lying in bed. Cachectic and frail. He is currently on 2 L/min nasal cannula, in no acute respiratory distress. SpO2 is 93%. He is slightly tachycardic. Blood pressure normotensive. No current chest pain. Currently on heparin infusion per protocol. Normal saline infusing at 75 mL/h. His abdomen remains distended. Abdominal pain has improved, currently rated 6/10 on a 10 point numerical scale. This is a generalized abdominal discomfort. No nausea or vomiting. He does have an NG tube to low intermittent suction for decompression it is draining a brown/fecal like material. I am told almost 1 L of output was initially drained on insertion of the nasogastric tube. He is currently NPO. General surgery has evaluated this patient, no plans for immediate surgical intervention, due to patient's acute MO. He is currently covered empirically on Zosyn. Reportedly has history of unknown penicillin allergy as a child. Prognosis is guarded. The patient is seen today February 12, 2024 in follow-up in the intensive care unit. He did undergo an exploratory laparotomy with lysis of adhesions yesterday. No significant bowel schema was noted. He did did have 4 L of fluid removed from his stomach however. Postoperative day #1. He remains intubated on the [facility] anical ventilator currently on assist-control mode at a rate of 16, tidal volume 400, FiO2 60% and a PEEP of 8. Morning blood gases reveal a PaO2 of 102, pCO2 58, pH 7.35 performed on 70% FiO2. He remains sedated on propofol at 35 mcg/kg/min. He is on normal saline at 75 MLS per hour. He is requiring norepinephrine at 20 mcg/min. He is also on vasopressin at 0.03 units/min. He is currently in sinus rhythm. Chest x-ray reveals endotracheal tube, nasogastric tube central line Mediport all in good position. Stable elevated left hemidiaphragm. Bilateral consolidation and pleural effusions are stable. Blood cultures are pending. White count 17.9. Hemoglobin 9.2. Platelets 412. Sodium 133. Potassium 4.1. Bicarb 27. BUN 44. Creatinine 1.48. Glucose 66. Cortisol level was 28.5. He is currently in a 2.5 L positive balance. He is on DuoNeb inhalations, Pulmicort and Perforomist inhalations. Antibiotics in the form of Zosyn. Heparin for DVT prophylaxis. The patient is seen today February 13, 2024 in follow-up in the intensive care unit. Last evening at approximately 5 PM the patient had SVT requiring cardioversion x 4 and then developed PEA and received about 10 minutes of CPR then return of spontaneous circulation. He remains intubated on the mechanical ventilator cu rrently in assist-control mode with a rate of 16, tidal volume 400, FiO2 50% and a PEEP of 8. Morning blood gases reveal a PaO2 of 101, pCO2 of 59 and a pH of 7.24. Respiratory acidosis. He remains on vasopressin at 0.04 units/min. Norepinephrine at 33 mcg/min. Elmo-Synephrine at 72 mcg/min. Amiodarone at 0.5 mg/min. He is on a heparin drip per weight-based protocol. Normal saline at 75 MLS per hour. Propofol at 25 mcg/kg/min. Chest x-ray reveals bilateral consolidation and stable pleural effusions. White count 20.9. Hemoglobin 8.6. Platelets 313. Sodium 135. Potassium 4.2. Bicarb 25. BUN 43. Creatinine 1.80. Glucose 168. He is on DuoNeb inhalations, Pulmicort and Perforomist inhalations. Remains on antibiotics in the form of Zosyn. The patient is seen today February 14, 2024 in follow-up in the intensive care unit. He remains intubated on the mechanical ventilator. Currently on assist-control mode with a rate of 16, tidal volume 400, FiO2 50% and a PEEP of 8. Morning blood gases reveal up PaO2 of 97, pCO2 58, pH 7.26. He remains on a heparin drip per weight-based protocol. TPN at 30 MLS per hour. Norepinephrine at 30 mcg/min. Vasopressin at 0.03 units/min. Normal saline at 75 MLS per hour. Amiodarone drip at 1 mg/min. Sedated on propofol at 25 mcg/kg/min. His Elmo- Synephrine has been off since approximately 330 yesterday afternoon. Chest x- ray continues to show bilateral infiltrates. He remains in atrial fibrillation. Cultures revealed no growth. White count 16.0. Hemoglobin 7.9. Platelets 257. Sodium 133. Potassium 3.7. Bicarb 24. BUN 45. Creatinine 1.70. Glucose 220. Ionized calcium 4.4. He is continued on DuoNeb inhalations, Pu lmicort and Perforomist inhalations, antibiotics in the form of Zosyn. Objective - Vital Signs Vital signs: Vital Signs Temp 97.8 F 02/14/24 08:00 Pulse 133 H 02/14/24 10:00 Resp 21 02/14/24 10:00 BP 86/68 02/14/24 09:45 Pulse Ox 96 02/14/24 10:00 FiO2 50 02/14/24 10:00 Intake & Output 02/13/24 02/14/24 02/14/24 18:59 06:59 18:59 Intake Total 2712.897 1550.224 384.818 Output Total 375 304 25 Balance 2337.897 1246.224 359.818 Weight 65.4 kg 66.8 kg Intake: IV 1567 1408 98 0.9 Sodium Chloride 260 220 20 carrier Mvi, Adult No.4 with Vit 60 330 K 10 ml Trace (Conc-1Ml/ Dose) 1 ml Sodium Acetate 30 meq Potassium Chloride 20 meq Calcium Gluconate 1 gm In Amino Acids 5 %/Dextrose 20 % 1 ,000 ml @ 35 mls/hr IV . Q24H [facility] Rx#:[id number] Piperacillin-Tazobactam 3 200 .375 gm In Sodium Chloride 0.9% 100 ml @ 25 mls/hr IVPB Q8HR [facility] Rx# :[id number] Pressure Bag (0.9 Sodium 72 33 3 Chloride) Sodium Chloride 0.9% 1, 975 825 75 000 ml @ 75 mls/hr IV . [id number] [facility] Rx#:[id number] Intake, IV Titration 1065.897 142.224 286.818 Amount Amiodarone 450 mg In 198.893 Dextrose 5% in Water 250 ml @ 0.5 MG/MIN 16.667 mls/hr IV .Q15H [facility] Rx#: [id number] Heparin Sod,Pork in 0.45% 102.402 NaCl 25,000 unit In 0.45 % NaCl 1 250ml.bag @ 12 UNITS/KG/HR 7.254 mls/hr IV .Q24H [facility] Rx#: [id number] Norepinephrine 32 mg In 250.000 42.224 186.310 Sodium Chloride 0.9% 218 ml @ 0.5 MCG/KG/MIN 14. 168 mls/hr IV .[id number] [facility] Rx#:[id number] Phenylephrine 40 mg In 329.967 Sodium Chloride 0.9% 250 ml @ 1 MCG/KG/MIN 23.031 mls/hr IV .Q11H2M [facility] Rx# :[id number] Piperacillin-Tazobactam 3 100 .375 gm In Sodium Chloride 0.9% 100 ml @ 25 mls/hr IVPB Q8HR [facility] Rx# :[id number] Vasopressin 20 unit In 84.635 0 17.365 Sodium Chloride 0.9% 50 ml @ 0.04 UNITS/MIN 6.12 mls/hr IV .Q8H20M [facility] Rx# :[id number] propofoL 1,000 mg In 100 83.143 Empty Bag 1 bag @ 15 MCG/ KG/MIN 5.307 mls/hr IV . [id number] [facility] Rx#:[id number] Oral 80 Tube Feeding 0 Output: Urine 375 304 25 Other: Voiding Method Indwelling Catheter Indwelling Catheter ABP, PAP, CO, CI - Last Documented Arterial Blood Pressure 113/59 - Exam GENERAL EXAM: Intubated, sedated, critically ill 73-year-old male, on FiO2 at 50%, in no apparent distress. HEAD: Normocephalic. EYES: Normal reaction of pupils, equal size. NOSE: Clear with pink turbinates. THROAT: Oral endotracheal and gastric tube secured in place. No erythema or exudates. NECK: No masses, no JVD. CHEST: No chest wall deformity. Right subclavian Mediport in place. LUNGS: Equal air entry with basilar crackles. CVS: S1 and S2 normal with no audible murmur, regular rhythm. ABDOMEN: Abdominal dressing dry and intact. No hepatosplenomegaly, normal bowel sounds, no guarding or rigidity. SPINE: No scoliosis or deformity SKIN: No rashes CENTRAL NERVOUS SYSTEM: Sedated, tone is normal in all 4 extremities. EXTREMITIES: There is no peripheral edema. No clubbing, no cyanosis. Peripheral pulses are intact. - Labs CBC & Chem 7: 02/14/24 04:15 02/14/24 04:15 Labs: Abnormal Lab Results - Last 24 Hours (Table) 02/13/24 02/13/24 02/13/24 Range/Units 04:40 11:39 12:03 WBC (3.8-10.6) k/uL RBC (4.30-5.90) m/uL Hgb (13.0-17.5) gm/dL Hct (39.0-53.0) % MCV (80.0-100.0) fL MCHC (31.0-37.0) g/dL RDW (11.5-15.5) % Macrocytosis APTT 52.0 H (22.0-30.0) sec ABG pH (7.35-7.45) ABG pCO2 (35-45) mmHg ABG HCO3 (21-25) mmol/L ABG Total CO2 (19-24) mmol/L ABG O2 Saturation (94-97) % Sodium (137-145) mmol/L BUN (9-20) mg/dL Creatinine (0.66-1.25) mg/dL Glucose (74-99) mg/dL POC Glucose (mg/dL) 156 H (70-110) mg/dL Calcium (8.4-10.2) mg/dL Ionized Calcium [place] (4.5-5.3) mg/dL Phosphorus 5.9 H (2.5-4.5) mg/dL Magnesium (1.6-2.3) mg/dL Total Protein (6.3-8.2) g/dL Albumin (3.5-5.0) g/dL 02/13/24 02/13/24 02/14/24 Range/Units 17:43 23:03 04:15 WBC 16.0 H (3.8-10.6) k/uL RBC 2.42 L (4.30-5.90) m/uL Hgb 7.9 L (13.0-17.5) gm/dL Hct 25.7 L (39.0-53.0) % MCV 105.9 H (80.0-100.0) fL MCHC 30.8 L (31.0-37.0) g/dL RDW 18.3 H (11.5-15.5) % Macrocytosis Marked A APTT (22.0-30.0) sec ABG pH (7.35-7.45) ABG pCO2 (35-45) mmHg ABG HCO3 (21-25) mmol/L ABG Total CO2 (19-24) mmol/L ABG O2 Saturation (94-97) % Sodium (137-145) mmol/L BUN (9-20) mg/dL Creatinine (0.66-1.25) mg/dL Glucose (74-99) mg/dL POC Glucose (mg/dL) 179 H 205 H (70-110) mg/dL Calcium (8.4-10.2) mg/dL Ionized Calcium [place] (4.5-5.3) mg/dL Phosphorus (2.5-4.5) mg/dL Magnesium (1.6-2.3) mg/dL Total Protein (6.3-8.2) g/dL Albumin (3.5-5.0) g/dL 02/14/24 02/14/24 02/14/24 Range/Units 04:15 04:15 04:15 WBC (3.8-10.6) k/uL RBC (4.30-5.90) m/uL Hgb (13.0-17.5) gm/dL Hct (39.0-53.0) % MCV (80.0-100.0) fL MCHC (31.0-37.0) g/dL RDW (11.5-15.5) % Macrocytosis APTT 49.9 H (22.0-30.0) sec ABG pH (7.35-7.45) ABG pCO2 (35-45) mmHg ABG HCO3 (21-25) mmol/L ABG Total CO2 (19-24) mmol/L ABG O2 Saturation (94-97) % Sodium 133 L (137-145) mmol/L BUN 45 H (9-20) mg/dL Creatinine 1.70 H (0.66-1.25) mg/dL Glucose 220 H (74-99) mg/dL POC Glucose (mg/dL) (70-110) mg/dL Calcium 7.1 L (8.4-10.2) mg/dL Ionized Calcium [place] 4.4 L (4.5-5.3) mg/dL Phosphorus 4.9 H (2.5-4.5) mg/dL Magnesium 2.4 H (1.6-2.3) mg/dL Total Protein 4.0 L (6.3-8.2) g/dL Albumin 2.0 L (3.5-5.0) g/dL 02/14/24 02/14/24 Range/Units 04:20 05:22 WBC (3.8-10.6) k/uL RBC (4.30-5.90) m/uL Hgb (13.0-17.5) gm/dL Hct (39.0-53.0) % MCV (80.0-100.0) fL MCHC (31.0-37.0) g/dL RDW (11.5-15.5) % Macrocytosis APTT (22.0-30.0) sec ABG pH 7.26 L (7.35-7.45) ABG pCO2 58 H (35-45) mmHg ABG HCO3 26 H (21-25) mmol/L ABG Total CO2 28 H (19-24) mmol/L ABG O2 Saturation 98.1 H (94-97) % Sodium (137-145) mmol/L BUN (9-20) mg/dL Creatinine (0.66-1.25) mg/dL Glucose (74-99) mg/dL POC Glucose (mg/dL) 264 H (70-110) mg/dL Calcium (8.4-10.2) mg/dL Ionized Calcium [place]wona (4.5-5.3) mg/dL Phosphorus (2.5-4.5) mg/dL Magnesium (1.6-2.3) mg/dL Total Protein (6.3-8.2) g/dL Albumin (3.5-5.0) g/dL Microbiology - Last 24 Hours (Table) 02/10/24 14:45 Blood Culture - Preliminary Blood 02/10/24 14:30 Blood Culture - Preliminary Blood Assessment and Plan Assessment: Acute ST elevation MO, status post heart catheterization, demonstrating chronic total occlusion of the RCA, critical disease involving the left circumflex, and severe disease involving the LAD. No plans for immediate surgical intervention. Cardiology is treating the patient medically at this point Cardiac arrest requiring approximately 10 minutes of CPR with return of spontaneous circulation on 02/12/2024 Significant hypotension requiring norepinephrine, vasopressin and Elmo-Synephrine High-grade small bowel obstruction secondary to internal hernia right lower quadrant due to adhesions, status post exploratory laparotomy and lysis of adhesions. Postoperative day #3 Acute hypoxemic respiratory failure secondary to above, requiring postoperative mechanical ventilation management Acute kidney injury secondary to above Coronary artery disease, as reported above Ischemic cardiomyopathy, with an ejection fraction of 15 to 20% Hyponatremia, likely related to poor oral intake/solute intake improving Chronic obstructive pulmonary disease, appears stable History of lung cancer, reportedly currently undergoing systemic chemotherapy, last reported treatment was approximately 3 weeks ago Chronic hypoxemic respiratory failure, secondary to above, normally maintained on 4 L/min nasal cannula Former tobacco smoker Plan: The patient was seen and evaluated Chest x-ray, ABGs, labs and medications reviewed Continue with the current treatment plan Continue TPN for nutritional support Replace calcium Prognosis is quite poor DNR CODE STATUS We will continue to follow I have personally seen and examined the patient, performed the documentation and the assessment and plan as written. Number of minutes spent on the visit: 15.
[2024-02-14 11:53] LABS: Glucose,Whole Blood 256 mg/dL (70-110)
--- NOTE | 2024-02-14 12:44 | P.PN ---
Subjective Progress Note Date: 02/14/24 Principal diagnosis: STEMI Patient went into atrial fibrillation with rapid ventricular response with heart rate in the 1 teens, was started on amiodarone IV by cardiology. He was following commands earlier this morning according to nursing. No other overnight events. Objective - Vital Signs Vital signs: Vital Signs Temp 97.8 F 02/14/24 08:00 Pulse 105 H 02/14/24 12:05 Resp 18 02/14/24 11:00 BP 102/76 02/14/24 11:00 Pulse Ox 97 02/14/24 11:00 FiO2 50 02/14/24 11:53 Intake & Output 02/13/24 02/14/24 02/14/24 18:59 06:59 18:59 Intake Total 2712.897 1550.224 941.818 Output Total 375 304 130 Balance 2337.897 1246.224 811.818 Weight 65.4 kg 66.8 kg Intake: IV 1567 1408 655 0.9 Sodium Chloride 260 220 320 carrier Calcium Gluconate in NaCl 100 2 gm In Saline 1 100ml. bag @ 100 mls/hr IVPB ONCE ONE Rx#:[id number] Invasive Line 3 10 Mvi, Adult No.4 with Vit 60 330 35 K 10 ml Trace (Conc-1Ml/ Dose) 1 ml Sodium Acetate 30 meq Potassium Chloride 20 meq Calcium Gluconate 1 gm In Amino Acids 5 %/Dextrose 20 % 1 ,000 ml @ 35 mls/hr IV . Q24H [facility] Rx#:[id number] Piperacillin-Tazobactam 3 200 100 .375 gm In Sodium Chloride 0.9% 100 ml @ 25 mls/hr IVPB Q8HR [facility] Rx# :[id number] Pressure Bag (0.9 Sodium 72 33 15 Chloride) Sodium Chloride 0.9% 1, 975 825 75 000 ml @ 75 mls/hr IV . [id number] [facility] Rx#:[id number] Intake, IV Titration 1065.897 142.224 286.818 Amount Amiodarone 450 mg In 198.893 Dextrose 5% in Water 250 ml @ 0.5 MG/MIN 16.667 mls/hr IV .Q15H [facility] Rx#: [id number] Heparin Sod,Pork in 0.45% 102.402 NaCl 25,000 unit In 0.45 % NaCl 1 250ml.bag @ 12 UNITS/KG/HR 7.254 mls/hr IV .Q24H [facility] Rx#: [id number] Norepinephrine 32 mg In 250.000 42.224 186.310 Sodium Chloride 0.9% 218 ml @ 0.5 MCG/KG/MIN 14. 168 mls/hr IV .[id number] [facility] Rx#:[id number] Phenylephrine 40 mg In 329.967 Sodium Chloride 0.9% 250 ml @ 1 MCG/KG/MIN 23.031 mls/hr IV .Q11H2M [facility] Rx# :[id number] Piperacillin-Tazobactam 3 100 .375 gm In Sodium Chloride 0.9% 100 ml @ 25 mls/hr IVPB Q8HR [facility] Rx# :[id number] Vasopressin 20 unit In 84.635 0 17.365 Sodium Chloride 0.9% 50 ml @ 0.04 UNITS/MIN 6.12 mls/hr IV .Q8H20M [facility] Rx# :[id number] propofoL 1,000 mg In 100 83.143 Empty Bag 1 bag @ 15 MCG/ KG/MIN 5.307 mls/hr IV . [id number] [facility] Rx#:[id number] Oral 80 Tube Feeding 0 0 Output: Urine 375 304 130 Other: Voiding Method Indwelling Catheter Indwelling Catheter # Bowel Movements 0 ABP, PAP, CO, CI - Last Documented Arterial Blood Pressure 104/66 - Exam Vitals: Reviewed General: Intubated on the vent Cardiovascular: RRR, S1-S2 Lungs: Breath sounds equal, transmitted upper airway sounds Extremities: 1+ pedal edema - Labs CBC & Chem 7: 02/14/24 04:15 02/14/24 04:15 Labs: Abnormal Lab Results - Last 24 Hours (Table) 02/13/24 02/13/24 02/13/24 Range/Units 04:40 17:43 23:03 WBC (3.8-10.6) k/uL RBC (4.30-5.90) m/uL Hgb (13.0-17.5) gm/dL Hct (39.0-53.0) % MCV (80.0-100.0) fL MCHC (31.0-37.0) g/dL RDW (11.5-15.5) % Macrocytosis APTT (22.0-30.0) sec ABG pH (7.35-7.45) ABG pCO2 (35-45) mmHg ABG HCO3 (21-25) mmol/L ABG Total CO2 (19-24) mmol/L ABG O2 Saturation (94-97) % Sodium (137-145) mmol/L BUN (9-20) mg/dL Creatinine (0.66-1.25) mg/dL Glucose (74-99) mg/dL POC Glucose (mg/dL) 179 H 205 H (70-110) mg/dL Calcium (8.4-10.2) mg/dL Ionized Calcium [place] (4.5-5.3) mg/dL Phosphorus 5.9 H (2.5-4.5) mg/dL Magnesium (1.6-2.3) mg/dL Total Protein (6.3-8.2) g/dL Albumin (3.5-5.0) g/dL 02/14/24 02/14/24 02/14/24 Range/Units 04:15 04:15 04:15 WBC 16.0 H (3.8-10.6) k/uL RBC 2.42 L (4.30-5.90) m/uL Hgb 7.9 L (13.0-17.5) gm/dL Hct 25.7 L (39.0-53.0) % MCV 105.9 H (80.0-100.0) fL MCHC 30.8 L (31.0-37.0) g/dL RDW 18.3 H (11.5-15.5) % Macrocytosis Marked A APTT (22.0-30.0) sec ABG pH (7.35-7.45) ABG pCO2 (35-45) mmHg ABG HCO3 (21-25) mmol/L ABG Total CO2 (19-24) mmol/L ABG O2 Saturation (94-97) % Sodium 133 L (137-145) mmol/L BUN 45 H (9-20) mg/dL Creatinine 1.70 H (0.66-1.25) mg/dL Glucose 220 H (74-99) mg/dL POC Glucose (mg/dL) (70-110) mg/dL Calcium 7.1 L (8.4-10.2) mg/dL Ionized Calcium [place] 4.4 L (4.5-5.3) mg/dL Phosphorus 4.9 H (2.5-4.5) mg/dL Magnesium 2.4 H (1.6-2.3) mg/dL Total Protein 4.0 L (6.3-8.2) g/dL Albumin 2.0 L (3.5-5.0) g/dL 02/14/24 02/14/24 02/14/24 Range/Units 04:15 04:20 05:22 WBC (3.8-10.6) k/uL RBC (4.30-5.90) m/uL Hgb (13.0-17.5) gm/dL Hct (39.0-53.0) % MCV (80.0-100.0) fL MCHC (31.0-37.0) g/dL RDW (11.5-15.5) % Macrocytosis APTT 49.9 H (22.0-30.0) sec ABG pH 7.26 L (7.35-7.45) ABG pCO2 58 H (35-45) mmHg ABG HCO3 26 H (21-25) mmol/L ABG Total CO2 28 H (19-24) mmol/L ABG O2 Saturation 98.1 H (94-97) % Sodium (137-145) mmol/L BUN (9-20) mg/dL Creatinine (0.66-1.25) mg/dL Glucose (74-99) mg/dL POC Glucose (mg/dL) 264 H (70-110) mg/dL Calcium (8.4-10.2) mg/dL Ionized Calcium [place] (4.5-5.3) mg/dL Phosphorus (2.5-4.5) mg/dL Magnesium (1.6-2.3) mg/dL Total Protein (6.3-8.2) g/dL Albumin (3.5-5.0) g/dL 02/14/24 Range/Units 11:51 WBC (3.8-10.6) k/uL RBC (4.30-5.90) m/uL Hgb (13.0-17.5) gm/dL Hct (39.0-53.0) % MCV (80.0-100.0) fL MCHC (31.0-37.0) g/dL RDW (11.5-15.5) % Macrocytosis APTT (22.0-30.0) sec ABG pH (7.35-7.45) ABG pCO2 (35-45) mmHg ABG HCO3 (21-25) mmol/L ABG Total CO2 (19-24) mmol/L ABG O2 Saturation (94-97) % Sodium (137-145) mmol/L BUN (9-20) mg/dL Creatinine (0.66-1.25) mg/dL Glucose (74-99) mg/dL POC Glucose (mg/dL) 256 H (70-110) mg/dL Calcium (8.4-10.2) mg/dL Ionized Calcium [place] (4.5-5.3) mg/dL Phosphorus (2.5-4.5) mg/dL Magnesium (1.6-2.3) mg/dL Total Protein (6.3-8.2) g/dL Albumin (3.5-5.0) g/dL Microbiology - Last 24 Hours (Table) 02/10/24 14:45 Blood Culture - Preliminary Blood 02/10/24 14:30 Blood Culture - Preliminary Blood Assessment and Plan Plan: SBO secondary to internal hernia right lower quadrant due to adhesions Status post ex lap with lysis of adhesions 02/10. On Zosyn. Continue TPN for nutritional support STEMI Ischemic cardiomyopathy with EF 15 to 20% Atrial fibrillation with rapid ventricular response Status post heart catheterization, demonstrating chronic total occlusion of the RCA, critical disease involving the left circumflex, and severe disease involving the LAD. No plans for immediate surgical intervention. Cardiology is treating the patient medically at this point. Aspirin, statin and metoprolol Started on amiodarone drip On IV heparin Severe cardiogenic and septic shock requiring norepinephrine, vasopressin and Elmo-Synephrine Acute kidney injury Likely secondary to hemodynamic instability. Nephrology following. Monitor urine output. Cardiac arrest requiring approximately 10 minutes of CPR with return of spontaneous circulation on 02/12/2024. Acute hypoxemic respiratory failure secondary to above, requiring postoperative mechanical ventilation management Hyponatremia, likely related to poor oral intake/solute intake improving IV fluids, monitor Chronic obstructive pulmonary disease, appears stable History of lung cancer, reportedly currently undergoing systemic chemotherapy, last reported treatment was approximately 3 weeks ago Chronic hypoxemic respiratory failure, secondary to above, normally maintained on 4 L/min nasal cannula Former tobacco smoker VTE prophylaxis: Subcu heparin GI prophylaxis: PPI DNR CODE STATUS We will continue to follow
[2024-02-14 12:53] VITALS: BMI 23.1
--- NOTE | 2024-02-14 14:33 | P.PN ---
Subjective Progress Note Date: 02/14/24 Patient is seen for follow-up for acute kidney injury. Status post lysis of adhesions and repair of hernia on 02/11/2024. Status post cardiac arrest with cardioversion 02/12/2024. He remains on high-dose pressers and patient is also intubated. Urine output is minimal at 20 to 30 mL. Serum creatinine has improved to 1.7 from 1.8. Calcium at 7.1; albumin 2.0. Corrected calcium is 8.7. FiO2 is 50%. Objective - Vital Signs Vital signs: Vital Signs Temp 97.5 F L 02/14/24 04:00 Pulse 112 H 02/14/24 05:00 Resp 14 02/14/24 05:00 BP 78/52 02/14/24 01:45 Pulse Ox 100 02/14/24 05:00 FiO2 50 02/14/24 04:00 Intake & Output 02/13/24 02/14/24 02/14/24 18:59 06:59 18:59 Intake Total 2712.897 1550.224 Output Total 375 304 Balance 2337.897 1246.224 Weight 65.4 kg 66.8 kg Intake: IV 1567 1408 0.9 Sodium Chloride 260 220 carrier Mvi, Adult No.4 with Vit 60 330 K 10 ml Trace (Conc-1Ml/ Dose) 1 ml Sodium Acetate 30 meq Potassium Chloride 20 meq Calcium Gluconate 1 gm In Amino Acids 5 %/Dextrose 20 % 1 ,000 ml @ 35 mls/hr IV . Q24H [facility] Rx#:[id number] Piperacillin-Tazobactam 3 200 .375 gm In Sodium Chloride 0.9% 100 ml @ 25 mls/hr IVPB Q8HR [facility] Rx# :[id number] Pressure Bag (0.9 Sodium 72 33 Chloride) Sodium Chloride 0.9% 1, 975 825 000 ml @ 75 mls/hr IV . [id number] [facility] Rx#:[id number] Intake, IV Titration 1065.897 142.224 Amount Amiodarone 450 mg In 198.893 Dextrose 5% in Water 250 ml @ 0.5 MG/MIN 16.667 mls/hr IV .Q15H [facility] Rx#: [id number] Heparin Sod,Pork in 0.45% 102.402 NaCl 25,000 unit In 0.45 % NaCl 1 250ml.bag @ 12 UNITS/KG/HR 7.254 mls/hr IV .Q24H [facility] Rx#: [id number] Norepinephrine 32 mg In 250.000 42.224 Sodium Chloride 0.9% 218 ml @ 0.5 MCG/KG/MIN 14. 168 mls/hr IV .[id number] [facility] Rx#:[id number] Phenylephrine 40 mg In 329.967 Sodium Chloride 0.9% 250 ml @ 1 MCG/KG/MIN 23.031 mls/hr IV .Q11H2M [facility] Rx# :[id number] Piperacillin-Tazobactam 3 100 .375 gm In Sodium Chloride 0.9% 100 ml @ 25 mls/hr IVPB Q8HR [facility] Rx# :[id number] Vasopressin 20 unit In 84.635 0 Sodium Chloride 0.9% 50 ml @ 0.04 UNITS/MIN 6.12 mls/hr IV .Q8H20M [facility] Rx# :[id number] propofoL 1,000 mg In 100 Empty Bag 1 bag @ 15 MCG/ KG/MIN 5.307 mls/hr IV . [id number] [facility] Rx#:[id number] Oral 80 Tube Feeding 0 Output: Urine 375 304 Other: Voiding Method Indwelling Catheter Indwelling Catheter ABP, PAP, CO, CI - Last Documented Arterial Blood Pressure 102/60 - Exam General: Patient is intubated and sedated. Lungs: Bilateral breath sounds present. Heart: Rate and rhythm are regular. Extremities: 1+ edema present. - Labs CBC & Chem 7: 02/14/24 04:15 02/14/24 04:15 Labs: Abnormal Lab Results - Last 24 Hours (Table) 02/13/24 02/13/24 02/13/24 Range/Units 04:40 11:39 12:03 WBC (3.8-10.6) k/uL RBC (4.30-5.90) m/uL Hgb (13.0-17.5) gm/dL Hct (39.0-53.0) % MCV (80.0-100.0) fL MCHC (31.0-37.0) g/dL RDW (11.5-15.5) % Macrocytosis APTT 52.0 H (22.0-30.0) sec ABG pH (7.35-7.45) ABG pCO2 (35-45) mmHg ABG HCO3 (21-25) mmol/L ABG Total CO2 (19-24) mmol/L ABG O2 Saturation (94-97) % Sodium (137-145) mmol/L BUN (9-20) mg/dL Creatinine (0.66-1.25) mg/dL Glucose (74-99) mg/dL POC Glucose (mg/dL) 156 H (70-110) mg/dL Calcium (8.4-10.2) mg/dL Ionized Calcium [place] (4.5-5.3) mg/dL Phosphorus 5.9 H (2.5-4.5) mg/dL Magnesium (1.6-2.3) mg/dL Total Protein (6.3-8.2) g/dL Albumin (3.5-5.0) g/dL 02/13/24 02/13/24 02/14/24 Range/Units 17:43 23:03 04:15 WBC 16.0 H (3.8-10.6) k/uL RBC 2.42 L (4.30-5.90) m/uL Hgb 7.9 L (13.0-17.5) gm/dL Hct 25.7 L (39.0-53.0) % MCV 105.9 H (80.0-100.0) fL MCHC 30.8 L (31.0-37.0) g/dL RDW 18.3 H (11.5-15.5) % Macrocytosis Marked A APTT (22.0-30.0) sec ABG pH (7.35-7.45) ABG pCO2 (35-45) mmHg ABG HCO3 (21-25) mmol/L ABG Total CO2 (19-24) mmol/L ABG O2 Saturation (94-97) % Sodium (137-145) mmol/L BUN (9-20) mg/dL Creatinine (0.66-1.25) mg/dL Glucose (74-99) mg/dL POC Glucose (mg/dL) 179 H 205 H (70-110) mg/dL Calcium (8.4-10.2) mg/dL Ionized Calcium [place] (4.5-5.3) mg/dL Phosphorus (2.5-4.5) mg/dL Magnesium (1.6-2.3) mg/dL Total Protein (6.3-8.2) g/dL Albumin (3.5-5.0) g/dL 02/14/24 02/14/24 02/14/24 Range/Units 04:15 04:15 04:15 WBC (3.8-10.6) k/uL RBC (4.30-5.90) m/uL Hgb (13.0-17.5) gm/dL Hct (39.0-53.0) % MCV (80.0-100.0) fL MCHC (31.0-37.0) g/dL RDW (11.5-15.5) % Macrocytosis APTT 49.9 H (22.0-30.0) sec ABG pH (7.35-7.45) ABG pCO2 (35-45) mmHg ABG HCO3 (21-25) mmol/L ABG Total CO2 (19-24) mmol/L ABG O2 Saturation (94-97) % Sodium 133 L (137-145) mmol/L BUN 45 H (9-20) mg/dL Creatinine 1.70 H (0.66-1.25) mg/dL Glucose 220 H (74-99) mg/dL POC Glucose (mg/dL) (70-110) mg/dL Calcium 7.1 L (8.4-10.2) mg/dL Ionized Calcium [place] 4.4 L (4.5-5.3) mg/dL Phosphorus 4.9 H (2.5-4.5) mg/dL Magnesium 2.4 H (1.6-2.3) mg/dL Total Protein 4.0 L (6.3-8.2) g/dL Albumin 2.0 L (3.5-5.0) g/dL 02/14/24 02/14/24 Range/Units 04:20 05:22 WBC (3.8-10.6) k/uL RBC (4.30-5.90) m/uL Hgb (13.0-17.5) gm/dL Hct (39.0-53.0) % MCV (80.0-100.0) fL MCHC (31.0-37.0) g/dL RDW (11.5-15.5) % Macrocytosis APTT (22.0-30.0) sec ABG pH 7.26 L (7.35-7.45) ABG pCO2 58 H (35-45) mmHg ABG HCO3 26 H (21-25) mmol/L ABG Total CO2 28 H (19-24) mmol/L ABG O2 Saturation 98.1 H (94-97) % Sodium (137-145) mmol/L BUN (9-20) mg/dL Creatinine (0.66-1.25) mg/dL Glucose (74-99) mg/dL POC Glucose (mg/dL) 264 H (70-110) mg/dL Calcium (8.4-10.2) mg/dL Ionized Calcium [place] (4.5-5.3) mg/dL Phosphorus (2.5-4.5) mg/dL Magnesium (1.6-2.3) mg/dL Total Protein (6.3-8.2) g/dL Albumin (3.5-5.0) g/dL Microbiology - Last 24 Hours (Table) 02/10/24 14:45 Blood Culture - Preliminary Blood 02/10/24 14:30 Blood Culture - Preliminary Blood Assessment and Plan Assessment: 1. Acute kidney injury. Secondary to ATN from hypotension. No obstruction noted on CT. Continue with IV fluids. Status post cardiac catheterization 02/10/2024. 2. Hyperkalemia. Associated with acute kidney injury. Rule out adrenal insufficiency. Cortisol levels elevated. Potassium 3.7 today. 3. Hypovolemic hyponatremia. Maintained on normal saline. Improving. 4. NSTEMI. 5. Cardiomyopathy. EF 15-20% on echo 02/10/2024. 6. Small bowel obstruction. Being followed by surgery. Currently with NG tube. Plan: Continue with IV fluids. Avoid nephrotoxic agents. Continue with antibiotics. Wean down pressers as tolerated.
[2024-02-14] MEDS: AMIODARONE 450 MG in DEXTROSE 5% IN WATER 250 ML IV SCH (14:45)
[2024-02-14 15:53] LABS: Potassium 3.9 mmol/L (3.5-5.1)
[2024-02-14] MEDS: ASPIRIN 81 MG PO SCH (16:06)
[2024-02-14 16:14] LABS: Ionized Calcium 4.6 mg/dL (4.5-5.3)
[2024-02-14] MEDS: [UNRECOGNIZED DRUG - REMARK] IV SCH (16:52)
[2024-02-14] MEDS ORDERED: MVI, ADULT NO.4 WITH VIT K 10 ML, TRACE (CONC-1ML/DOSE) 1 ML, SODIUM ACETATE 30 MEQ, PO... IV SCH (17:00)
[2024-02-14 17:58] LABS: Glucose,Whole Blood 196 mg/dL (70-110)
[2024-02-14 23:28] LABS: Glucose,Whole Blood 274 mg/dL (70-110)
[2024-02-15 04:21] LABS: Glucose,Whole Blood 232 mg/dL (70-110)
[2024-02-15 04:58] LABS: ALT 16 U/L (4-49); AST 25 U/L (17-59); African American GFR (CKD) 54 (>60 ml/min/1.73 sqM); Albumin 2.1 g/dL (3.5-5.0); Alkaline Phosphatase 48 U/L (38-126); Anion Gap 3 mmol/L; Blood Urea Nitrogen 45 mg/dL (9-20); Calcium 7.5 mg/dL (8.4-10.2); Carbon Dioxide 24 mmol/L (22-30); Chloride 107 mmol/L (98-107); Glucose 207 mg/dL (74-99); Magnesium 2.3 mg/dL (1.6-2.3); Non-African American GFR(CKD) 47 (>60 ml/min/1.73 sqM); Phosphorus 3.6 mg/dL (2.5-4.5); Potassium 3.9 mmol/L (3.5-5.1); Sodium 134 mmol/L (137-145); Total Bilirubin 0.3 mg/dL (0.2-1.3); Total Protein 4.2 g/dL (6.3-8.2)
[2024-02-15 05:27] LABS: ABG HCO3 25 mmol/L (21-25); ABG Oxygen Saturation 88.8 % (94-97); ABG PCO2 57 mmHg (35-45); ABG PH 7.24 (7.35-7.45); ABG TCO2 26 mmol/L (19-24); Allen Test Performed? Yes
[2024-02-15] MEDS: POTASSIUM BICARBONATE/CIT AC 20 MEQ TABLET.EFF NG-TUBE SCH (05:31)
[2024-02-15 05:34] LABS: ABG PO2 56 mmHg (83-108)
--- NOTE | 2024-02-15 08:31 | P.PN ---
Subjective Progress Note Date: 02/14/24 CHIEF COMPLAINT: Bowel obstruction HISTORY OF PRESENT ILLNESS: The patient is a 73-year-old male status post lysis of adhesions for high-grade small bowel obstruction. Postoperatively, patient went to atrial fibrillation and hypotension with subsequent conversion. He is in the ICU with full ventilatory support. He is on TPN. Per discussion with his nurse, patient has been getting oral pills. ROS: No fevers. Continued on high-dose pressors. History of lung cancer PHYSICAL EXAM: VITAL SIGNS: Reviewed CONSTITUTIONAL: Well developed and in no acute distress. EYES: Conjuctivae without sclera icterus. Extraocular movements grossly intact. HEAD, EARS, NOSE, THROAT: Moist buccal mucosa. Head is atraumatic, normocephalic. Hears conversational speech. No nasal drainage. RESPIRATORY: Non-labored respirations and equal bilateral excursions. On mechanical ventilation. CARDIOVASCULAR: Palpable 2+ radial pulses. ABDOMEN: Dressing intact. MUSCULOSKELETAL: No gross deformity of the lower extremities noted. No clubbing. No cyanosis. SKIN: Good skin turgor. Well perfused. NEUROLOGIC: No focal or lateralizing signs. PSYCH: Sedated. CLINICAL LABS: Reviewed. WBC over 16,000, leukocytosis. Hemoglobin 7.9, anemia. ABG pH 7.26. ASSESSMENT: 1. High-grade small bowel obstruction. 2. Leukocytosis 3. Anemia 4. Atrial fibrillation with hypotension 5. Acidosis 6. History of lung cancer PLAN: 1. Per discussion with nursing, patient is change code to DO NOT RESUSCITATE. 2. Overall, poor prognosis. 3. Continue with medication use via orogastric tube. Otherwise continue TPN. Objective - Vital Signs Vital signs: Vital Signs Temp 97.5 F L 02/15/24 04:00 Pulse 73 02/15/24 07:15 Resp 17 02/15/24 07:15 BP 93/68 02/15/24 07:15 Pulse Ox 93 L 02/15/24 07:15 FiO2 60 02/15/24 05:36 Intake & Output 02/14/24 02/15/24 02/15/24 18:59 06:59 18:59 Intake Total 3268.047 1386.392 89.773 Output Total 355 245 25 Balance 2913.047 1141.392 64.773 Weight 66.8 kg 71.9 kg Intake: IV 1676 1088 38 0.9 Sodium Chloride 245 carrier Calcium Gluconate in NaCl 100 2 gm In Saline 1 100ml. bag @ 100 mls/hr IVPB ONCE ONE Rx#:[id number] Invasive Line 3 30 30 Mvi, Adult No.4 with Vit 315 350 35 K 10 ml Trace (Conc-1Ml/ Dose) 1 ml Sodium Acetate 30 meq Potassium Chloride 20 meq Calcium Gluconate 1 gm In Amino Acids 5 %/Dextrose 20 % 1 ,000 ml @ 35 mls/hr IV . Q24H [facility] Rx#:[id number] Piperacillin-Tazobactam 3 200 .375 gm In Sodium Chloride 0.9% 100 ml @ 25 mls/hr IVPB Q8HR [facility] Rx# :[id number] Pressure Bag (0.9 Sodium 36 33 3 Chloride) Sodium Chloride 0.9% 1, 750 675 000 ml @ 75 mls/hr IV . [id number] [facility] Rx#:[id number] Intake, IV Titration 1592.047 298.392 51.773 Amount Amiodarone 360 mg In 183.887 Dextrose 5% in Water 200 ml @ 1 MG/MIN 33.333 mls/ hr IV .Q6H ONE Rx#: [id number] Amiodarone 450 mg In 148.614 Dextrose 5% in Water 250 ml @ 0.5 MG/MIN 16.667 mls/hr IV .Q15H [facility] Rx#: [id number] Heparin Sod,Pork in 0.45% 187.455 NaCl 25,000 unit In 0.45 % NaCl 1 250ml.bag @ 12 UNITS/KG/HR 7.254 mls/hr IV .Q24H [facility] Rx#: [id number] Mvi, Adult No.4 with Vit 691.5 K 10 ml Trace (Conc-1Ml/ Dose) 1 ml Sodium Acetate 30 meq Potassium Chloride 20 meq Calcium Gluconate 1 gm In Amino Acids 5 %/Dextrose 20 % 1 ,000 ml @ 30 mls/hr IV . Q24H [facility] Rx#:[id number] Norepinephrine 32 mg In 303.990 61.158 Sodium Chloride 0.9% 218 ml @ 0.5 MCG/KG/MIN 14. 168 mls/hr IV .[id number] [facility] Rx#:[id number] Vasopressin 20 unit In 50.260 51 Sodium Chloride 0.9% 50 ml @ 0.04 UNITS/MIN 6.12 mls/hr IV .Q8H20M [facility] Rx# :[id number] propofoL 1,000 mg In 174.955 37.62 51.773 Empty Bag 1 bag @ 15 MCG/ KG/MIN 5.307 mls/hr IV . [id number] [facility] Rx#:[id number] Tube Feeding 0 Output: Urine 355 245 25 Other: Voiding Method Indwelling Catheter Indwelling Catheter # Bowel Movements 0 ABP, PAP, CO, CI - Last Documented Arterial Blood Pressure 101/57 - Labs CBC & Chem 7: 02/14/24 04:15 02/15/24 04:20 Labs: Abnormal Lab Results - Last 24 Hours (Table) 02/14/24 02/14/24 02/14/24 Range/Units 11:51 17:57 23:26 APTT (22.0-30.0) sec ABG pH (7.35-7.45) ABG pCO2 (35-45) mmHg ABG pO2 (83-108) mmHg ABG Total CO2 (19-24) mmol/L ABG O2 Saturation (94-97) % Sodium (137-145) mmol/L BUN (9-20) mg/dL Creatinine (0.66-1.25) mg/dL Glucose (74-99) mg/dL POC Glucose (mg/dL) 256 H 196 H 274 H (70-110) mg/dL Calcium (8.4-10.2) mg/dL Total Protein (6.3-8.2) g/dL Albumin (3.5-5.0) g/dL 02/15/24 02/15/24 02/15/24 Range/Units 04:19 04:20 04:20 APTT 57.0 H (22.0-30.0) sec ABG pH (7.35-7.45) ABG pCO2 (35-45) mmHg ABG pO2 (83-108) mmHg ABG Total CO2 (19-24) mmol/L ABG O2 Saturation (94-97) % Sodium 134 L (137-145) mmol/L BUN 45 H (9-20) mg/dL Creatinine 1.49 H (0.66-1.25) mg/dL Glucose 207 H (74-99) mg/dL POC Glucose (mg/dL) 232 H (70-110) mg/dL Calcium 7.5 L (8.4-10.2) mg/dL Total Protein 4.2 L (6.3-8.2) g/dL Albumin 2.1 L (3.5-5.0) g/dL 02/15/24 Range/Units 05:22 APTT (22.0-30.0) sec ABG pH 7.24 L (7.35-7.45) ABG pCO2 57 H (35-45) mmHg ABG pO2 56 L* (83-108) mmHg ABG Total CO2 26 H (19-24) mmol/L ABG O2 Saturation 88.8 L (94-97) % Sodium (137-145) mmol/L BUN (9-20) mg/dL Creatinine (0.66-1.25) mg/dL Glucose (74-99) mg/dL POC Glucose (mg/dL) (70-110) mg/dL Calcium (8.4-10.2) mg/dL Total Protein (6.3-8.2) g/dL Albumin (3.5-5.0) g/dL
[2024-02-15] MEDS: AMIODARONE 450 MG in DEXTROSE 5% IN WATER 250 ML IV SCH (08:48)
--- NOTE | 2024-02-15 08:54 | P.PN ---
Subjective Progress Note Date: 02/15/24 This is a 73-year-old gentleman with a past medical history significant for history of smoking and COPD and chronic hypoxic respiratory failure as well as history of lung cancer currently on chemotherapy with unknown details at this point. We consulted to see the patient in the emergency room for further evaluation of abnormal cardiac enzymes as well as abnormal EKG. The patient presented to the hospital with long cardiovascular symptoms including abdominal discomfort was associated with nausea. For some reasons he underwent further evaluation including an EKG and that showed sinus mechanism with ST segment elevation in the anteroseptal leads with already Q waves in the anteroseptal leads as well. Subsequently troponin was performed and came to be also abnormal. Also on examination the patient was found to have abdominal wall distention and abdominal tenderness with further evaluation showed small bowel obstruction which was extremely severe. The patient did not report any symptoms of chest pain or chest discomfort or any dizziness or lightheadedness or presyncope or syncope and no history of CAD or heart failure or cardiac arrhythmia and never seen any claims collector before. Subsequently initially medical treatment only was advised giving the absence of any chest pain or chest discomfort as well as the patient probably completed an infarct. The patient was seen after that by the surgical team and he was deemed to be not needing any surgery at this point. Further evaluation was performed including an echo and that showed severe cardiomyopathy with EF around 20%. Subsequently patient underwent a heart catheterization which revealed chronic total occlusion of the RCA which fills by collaterals from the left coronary system along with severe disease involving the LCx and severe disease involving the LAD but both the LCx and LAD have DEB-3 flow. I felt at this point doing percutaneous revascularization will not help the patient in case he need to have surgery down the line. With that being said I am going to maximize medical treatment at this point and optimize medical treatment for cardiomyopathy as well as CAD and acute coronary syndrome. The examination revealed mild sinus tachycardia with soft blood pressure and diminished breathing sounds bilaterally and no edema was noted in the lower extremities. February 12, 2024 The patient was seen and evaluated this morning. He underwent abdominal surgery yesterday with lysis of adhesion. Currently he is intubated on mechanical ventilation but he is hypotensive requiring norepinephrine at high dose. I am going to start the patient on dobutamine and try to come down with norepinephrine giving the cardiomyopathy and low EF and the acute coronary syndrome. Otherwise the urine output is marginal. The examination is remarkable for intubated patient with diminished breathing sounds bilaterally and no edema was noted in the lower extremities February 13, 2024 The patient was seen and evaluated this morning. Apparently last night he did have an episode of tachycardia and reviewing the strips indicate possible SVT versus atrial flutter. He received cardioversion and subsequently he was started on amiodarone but he has been maintaining normal sinus mechanism but he continues to be hypotensive requiring vasopressors. Examination is remarkable for intubated patient on mechanical ventilation with diminished breathing sounds bilaterally and regular rate and rhythm with a and heart sounds February 14, 2024 The patient was seen this morning. He continues to be intubated on mechanical ventilation and he continues to be hemodynamically unstable requiring vasopressors. Beside that he went into an A-fib with RVR yesterday and he is in A-fib right now with overall heart rate above 100 bpm. Going to start the patient on amiodarone IV. He is on heparin IV beside that. The chest x-ray was reviewed. The blood work was reviewed. The examination is remarkable for irregular rhythm with diminished breathing sounds bilaterally and mild bilateral lower extremities edema February 15, 2024 The patient was seen and evaluated this morning. He continues to be intubated on mechanical ventilation. He is unstable hemodynamically and continues to requires norepinephrine as well as vasopressin severe he is on amiodarone IV and he is on heparin IV. He has been maintaining normal sinus mechanism. Examination is remarkable for regular rhythm with a distant heart sounds and clear breathing sounds bilaterally and no edema was noted in the lower extremities Assessment Status post abdominal surgery Acute coronary syndrome Severe CAD Severe cardiomyopathy Cardiac arrhythmia with SVT versus atrial flutter Multiple comorbid conditions Plan Continue the current medical regimen Continue amiodarone IV Continue anticoagulation using heparin Consider switching the patient to oral anticoagulation and oral amiodarone Continue monitor the kidney function and electrolytes and hemoglobin Follow-up with the patient Objective - Vital Signs Vital signs: Vital Signs Temp 97.5 F L 02/15/24 04:00 Pulse 73 02/15/24 07:15 Resp 17 02/15/24 07:15 BP 93/68 02/15/24 07:15 Pulse Ox 93 L 02/15/24 07:15 FiO2 60 02/15/24 05:36 Intake & Output 02/14/24 02/15/24 02/15/24 18:59 06:59 18:59 Intake Total 3268.047 1386.392 245.117 Output Total 355 245 25 Balance 2913.047 1141.392 220.117 Weight 66.8 kg 71.9 kg Intake: IV 1676 1088 38 0.9 Sodium Chloride 245 carrier Calcium Gluconate in NaCl 100 2 gm In Saline 1 100ml. bag @ 100 mls/hr IVPB ONCE ONE Rx#:[id number] Invasive Line 3 30 30 Mvi, Adult No.4 with Vit 315 350 35 K 10 ml Trace (Conc-1Ml/ Dose) 1 ml Sodium Acetate 30 meq Potassium Chloride 20 meq Calcium Gluconate 1 gm In Amino Acids 5 %/Dextrose 20 % 1 ,000 ml @ 35 mls/hr IV . Q24H [facility] Rx#:[id number] Piperacillin-Tazobactam 3 200 .375 gm In Sodium Chloride 0.9% 100 ml @ 25 mls/hr IVPB Q8HR [facility] Rx# :[id number] Pressure Bag (0.9 Sodium 36 33 3 Chloride) Sodium Chloride 0.9% 1, 750 675 000 ml @ 75 mls/hr IV . [id number] [facility] Rx#:[id number] Intake, IV Titration 1592.047 298.392 207.117 Amount Amiodarone 360 mg In 183.887 Dextrose 5% in Water 200 ml @ 1 MG/MIN 33.333 mls/ hr IV .Q6H [facility] Rx#: [id number] Amiodarone 450 mg In 148.614 149.447 Dextrose 5% in Water 250 ml @ 0.5 MG/MIN 16.667 mls/hr IV .Q15H [facility] Rx#: [id number] Heparin Sod,Pork in 0.45% 187.455 NaCl 25,000 unit In 0.45 % NaCl 1 250ml.bag @ 12 UNITS/KG/HR 7.254 mls/hr IV .Q24H [facility] Rx#: [id number] Mvi, Adult No.4 with Vit 691.5 K 10 ml Trace (Conc-1Ml/ Dose) 1 ml Sodium Acetate 30 meq Potassium Chloride 20 meq Calcium Gluconate 1 gm In Amino Acids 5 %/Dextrose 20 % 1 ,000 ml @ 30 mls/hr IV . Q24H [facility] Rx#:[id number] Norepinephrine 32 mg In 303.990 61.158 Sodium Chloride 0.9% 218 ml @ 0.5 MCG/KG/MIN 14. 168 mls/hr IV .[id number] [facility] Rx#:[id number] Vasopressin 20 unit In 50.260 51 Sodium Chloride 0.9% 50 ml @ 0.04 UNITS/MIN 6.12 mls/hr IV .[id number] [facility] Rx# :[id number] propofoL 1,000 mg In 174.955 37.62 57.670 Empty Bag 1 bag @ 15 MCG/ KG/MIN 5.307 mls/hr IV . [id number] [facility] Rx#:[id number] Tube Feeding 0 Output: Urine 355 245 25 Other: Voiding Method Indwelling Catheter Indwelling Catheter # Bowel Movements 0 ABP, PAP, CO, CI - Last Documented Arterial Blood Pressure 101/57 - Labs CBC & Chem 7: 02/14/24 04:15 02/15/24 04:20 Labs: Abnormal Lab Results - Last 24 Hours (Table) 02/14/24 02/14/24 02/14/24 Range/Units 11:51 17:57 23:26 APTT (22.0-30.0) sec ABG pH (7.35-7.45) ABG pCO2 (35-45) mmHg ABG pO2 (83-108) mmHg ABG Total CO2 (19-24) mmol/L ABG O2 Saturation (94-97) % Sodium (137-145) mmol/L BUN (9-20) mg/dL Creatinine (0.66-1.25) mg/dL Glucose (74-99) mg/dL POC Glucose (mg/dL) 256 H 196 H 274 H (70-110) mg/dL Calcium (8.4-10.2) mg/dL Total Protein (6.3-8.2) g/dL Albumin (3.5-5.0) g/dL 02/15/24 02/15/24 02/15/24 Range/Units 04:19 04:20 04:20 APTT 57.0 H (22.0-30.0) sec ABG pH (7.35-7.45) ABG pCO2 (35-45) mmHg ABG pO2 (83-108) mmHg ABG Total CO2 (19-24) mmol/L ABG O2 Saturation (94-97) % Sodium 134 L (137-145) mmol/L BUN 45 H (9-20) mg/dL Creatinine 1.49 H (0.66-1.25) mg/dL Glucose 207 H (74-99) mg/dL POC Glucose (mg/dL) 232 H (70-110) mg/dL Calcium 7.5 L (8.4-10.2) mg/dL Total Protein 4.2 L (6.3-8.2) g/dL Albumin 2.1 L (3.5-5.0) g/dL 02/15/24 Range/Units 05:22 APTT (22.0-30.0) sec ABG pH 7.24 L (7.35-7.45) ABG pCO2 57 H (35-45) mmHg ABG pO2 56 L* (83-108) mmHg ABG Total CO2 26 H (19-24) mmol/L ABG O2 Saturation 88.8 L (94-97) % Sodium (137-145) mmol/L BUN (9-20) mg/dL Creatinine (0.66-1.25) mg/dL Glucose (74-99) mg/dL POC Glucose (mg/dL) (70-110) mg/dL Calcium (8.4-10.2) mg/dL Total Protein (6.3-8.2) g/dL Albumin (3.5-5.0) g/dL
--- NOTE | 2024-02-15 09:10 | XR ---
EXAMINATION TYPE: XR chest 1V portable DATE OF EXAM: 02/15/2024 COMPARISON: 02/14/2024 HISTORY: Tube placement TECHNIQUE: Single frontal view of the chest is obtained. FINDINGS: There is an ET tube approximately 9.7 cm above the rashaun. There is an NG tube within the stomach. There is a Mediport catheter on the right with the tip in the SVC/RA junction. There is a small calib er left jugular central venous catheter tip in the SVC/RA junction. There is no change in the moderate left pleural effusion. Ill-defined scattered partially consolidati ve opacities in the right are stable. There is no pneumothorax. The heart size is normal. The osseous structures are grossly intact. IMPRESSION: 1. ET tube 9.7 cm above the rashaun and NG tube is in the stomach. 2. Mediport and central lines unchanged in position. 3. Acute cardiopulmonary disease with no significant interval change. IMPRESSION: No acute process.
--- NOTE | 2024-02-15 09:38 | P.PN ---
Subjective Progress Note Date: 02/15/24 Patient is a 73-year-old white male with past medical history significant for COPD, chronic hypoxemic respiratory failure, lung cancer undergoing current systemic treatment, former tobacco smoker, among other things. Patient states that he has lung cancer diagnosed approximately 6 months ago at [facility]. He follows with an out-of-town oncologist, Dr. Rincon, who directs his treatments. He is chronically oxygen dependent on 4 L/min nasal cannula. Quit smoking over 2 years ago. He presents to the emergency department yesterday afternoon complaining of severe periumbilical abdominal pain, which reportedly started on . His appetite has been poor. Last bowel movement was rod roximately 4 days ago, and small/liquid. Denies any cookie blood loss. Abdominal/pelvis CT demonstrated marked distal small bowel obstruction with an uncertain transition point. No free intraperitoneal air or fluid. No definitive masses. Incidentally, bilateral lower lobe pleural effusions were s een. Questionable airspace infiltrates or atelectasis. During his initial workup in the emergency department, he was noted to have diffuse ST segment elevations, as well as, significantly elevated cardiac troponin. Denies prior history of coronary artery disease, prior cardiac stents, or heart attacks. He denies any chest pain, acute shortness of breath, nausea, diaphoresis. Does admit some increased bilateral lower extremity/ankle edema. CBC: WBC count 7, hemoglobin 11.9, hematocrit 37, platelets 560. CMP: Sodium 129, potassium 5.5, chloride 89, serum bicarb 36, BUN 48, creatinine 1.18, glucose 152. AST 128, ALT 39, ALP 71. Troponin 56.8. EKG showing diffuse ST elevation in leads II, III, aVF; V3, V4, V5. He did go to the [facility] yesterday evening which demonstrated chronic total occlusion of the RCA, critical disease involving the left circumflex, and severe disease involving the LAD. Cardiology is treating the patient medically at this point. Follow-up echocardiogram estimating severely decreased left ventricular ejection fraction of 15 to 20%. There is hypokinesis involving the anterior wall and anterior septum. Patient is currently on the cardiac stepdown unit. He appears comfortable lying in bed. Cachectic and frail. He is currently on 2 L/min nasal cannula, in no acute respiratory distress. SpO2 is 93%. He is slightly tachycardic. Blood pressure normotensive. No current chest pain. Currently on heparin infusion per protocol. Normal saline infusing at 75 mL/h. His abdomen remains distended. Abdominal pain has improved, currently rated 6/10 on a 10 point numerical scale. This is a generalized abdominal discomfort. No nausea or vomiting. He does have an NG tube to low intermittent suction for decompression it is draining a brown/fecal like material. I am told almost 1 L of output was initially drained on insertion of the nasogastric tube. He is currently NPO. General surgery has evaluated this patient, no plans for immediate surgical intervention, due to patient's acute IN. He is currently covered empirically on Zosyn. Reportedly has history of unknown penicillin allergy as a child. Prognosis is guarded. The patient is seen today February 12, 2024 in follow-up in the intensive care unit. He did undergo an exploratory laparotomy with lysis of adhesions yesterday. No significant bowel schema was noted. He did did have 4 L of fluid removed from his stomach however. Postoperative day #1. He remains intubated on the [facility] anical ventilator currently on assist-control mode at a rate of 16, tidal volume 400, FiO2 60% and a PEEP of 8. Morning blood gases reveal a PaO2 of 102, pCO2 58, pH 7.35 performed on 70% FiO2. He remains sedated on propofol at 35 mcg/kg/min. He is on normal saline at 75 MLS per hour. He is requiring norepinephrine at 20 mcg/min. He is also on vasopressin at 0.03 units/min. He is currently in sinus rhythm. Chest x-ray reveals endotracheal tube, nasogastric tube central line Mediport all in good position. Stable elevated left hemidiaphragm. Bilateral consolidation and pleural effusions are stable. Blood cultures are pending. White count 17.9. Hemoglobin 9.2. Platelets 412. Sodium 133. Potassium 4.1. Bicarb 27. BUN 44. Creatinine 1.48. Glucose 66. Cortisol level was 28.5. He is currently in a 2.5 L positive balance. He is on DuoNeb inhalations, Pulmicort and Perforomist inhalations. Antibiotics in the form of Zosyn. Heparin for DVT prophylaxis. The patient is seen today February 13, 2024 in follow-up in the intensive care unit. Last evening at approximately 5 PM the patient had SVT requiring cardioversion x 4 and then developed PEA and received about 10 minutes of CPR then return of spontaneous circulation. He remains intubated on the mechanical ventilator cu rrently in assist-control mode with a rate of 16, tidal volume 400, FiO2 50% and a PEEP of 8. Morning blood gases reveal a PaO2 of 101, pCO2 of 59 and a pH of 7.24. Respiratory acidosis. He remains on vasopressin at 0.04 units/min. Norepinephrine at 33 mcg/min. Elmo-Synephrine at 72 mcg/min. Amiodarone at 0.5 mg/min. He is on a heparin drip per weight-based protocol. Normal saline at 75 MLS per hour. Propofol at 25 mcg/kg/min. Chest x-ray reveals bilateral consolidation and stable pleural effusions. White count 20.9. Hemoglobin 8.6. Platelets 313. Sodium 135. Potassium 4.2. Bicarb 25. BUN 43. Creatinine 1.80. Glucose 168. He is on DuoNeb inhalations, Pulmicort and Perforomist inhalations. Remains on antibiotics in the form of Zosyn. The patient is seen today February 14, 2024 in follow-up in the intensive care unit. He remains intubated on the mechanical ventilator. Currently on assist-control mode with a rate of 16, tidal volume 400, FiO2 50% and a PEEP of 8. Morning blood gases reveal up PaO2 of 97, pCO2 58, pH 7.26. He remains on a heparin drip per weight-based protocol. TPN at 30 MLS per hour. Norepinephrine at 30 mcg/min. Vasopressin at 0.03 units/min. Normal saline at 75 MLS per hour. Amiodarone drip at 1 mg/min. Sedated on propofol at 25 mcg/kg/min. His Elmo- Synephrine has been off since approximately 330 yesterday afternoon. Chest x- ray continues to show bilateral infiltrates. He remains in atrial fibrillation. Cultures revealed no growth. White count 16.0. Hemoglobin 7.9. Platelets 257. Sodium 133. Potassium 3.7. Bicarb 24. BUN 45. Creatinine 1.70. Glucose 220. Ionized calcium 4.4. He is continued on DuoNeb inhalations, Pu lmicort and Perforomist inhalations, antibiotics in the form of Zosyn. The patient is seen today February 15, 2024 in follow-up in the intensive care unit. He remains intubated on the mechanical ventilator. Currently on assist-control mode at a rate of 16, tidal volume 400, FiO2 60% and a PEEP of 5. Morning blood gases revealed a PaO2 of 56, pCO2 57 and a pH of 7.24 on 50% FiO2. He remains sedated on propofol at 35 mcg/kg/min. Normal saline at 75 MLS per hour. Vasopressin at 0.03 units/min. Norepinephrine at 22 mcg/min. Amiodarone at 0.5 mg/min. Heparin drip per weight-based protocol. He is being nourished with TPN at 35 MLS per hour. He remains on Zosyn. Chest x-ray is stable with scattered consolidative opacities on the right and a moderate left pleural effusion on the left. Endotracheal tube to be repositioned. Blood cultures revealed no growth. Sodium 134. Potassium 3.9. Bicarb 24. BUN 45. Creatinine 1.49. Glucose 207. He is continued on DuoNeb inhalations, Pulmicort and Perforomist inhalations Objective - Vital Signs Vital signs: Vital Signs Temp 97.5 F L 02/15/24 04:00 Pulse 75 02/15/24 09:18 Resp 17 02/15/24 07:15 BP 93/68 02/15/24 07:15 Pulse Ox 93 L 02/15/24 07:15 FiO2 60 02/15/24 09:18 Intake & Output 02/14/24 02/15/24 02/15/24 18:59 06:59 18:59 Intake Total 3268.047 1386.392 245.117 Output Total 355 245 25 Balance 2913.047 1141.392 220.117 Weight 66.8 kg 71.9 kg Intake: IV 1676 1088 38 0.9 Sodium Chloride 245 carrier Calcium Gluconate in NaCl 100 2 gm In Saline 1 100ml. bag @ 100 mls/hr IVPB ONCE ONE Rx#:[id number] Invasive Line 3 30 30 Mvi, Adult No.4 with Vit 315 350 35 K 10 ml Trace (Conc-1Ml/ Dose) 1 ml Sodium Acetate 30 meq Potassium Chloride 20 meq Calcium Gluconate 1 gm In Amino Acids 5 %/Dextrose 20 % 1 ,000 ml @ 35 mls/hr IV . Q24H [facility] Rx#:[id number] Piperacillin-Tazobactam 3 200 .375 gm In Sodium Chloride 0.9% 100 ml @ 25 mls/hr IVPB Q8HR [facility] Rx# :[id number] Pressure Bag (0.9 Sodium 36 33 3 Chloride) Sodium Chloride 0.9% 1, 750 675 000 ml @ 75 mls/hr IV . [id number] [facility] Rx#:[id number] Intake, IV Titration 1592.047 298.392 207.117 Amount Amiodarone 360 mg In 183.887 Dextrose 5% in Water 200 ml @ 1 MG/MIN 33.333 mls/ hr IV .Q6H [facility] Rx#: [id number] Amiodarone 450 mg In 148.614 149.447 Dextrose 5% in Water 250 ml @ 0.5 MG/MIN 16.667 mls/hr IV .Q15H [facility] Rx#: [id number] Heparin Sod,Pork in 0.45% 187.455 NaCl 25,000 unit In 0.45 % NaCl 1 250ml.bag @ 12 UNITS/KG/HR 7.254 mls/hr IV .Q24H [facility] Rx#: [id number] Mvi, Adult No.4 with Vit 691.5 K 10 ml Trace (Conc-1Ml/ Dose) 1 ml Sodium Acetate 30 meq Potassium Chloride 20 meq Calcium Gluconate 1 gm In Amino Acids 5 %/Dextrose 20 % 1 ,000 ml @ 30 mls/hr IV . Q24H [facility] Rx#:[id number] Norepinephrine 32 mg In 303.990 61.158 Sodium Chloride 0.9% 218 ml @ 0.5 MCG/KG/MIN 14. 168 mls/hr IV .[id number] [facility] Rx#:[id number] Vasopressin 20 unit In 50.260 51 Sodium Chloride 0.9% 50 ml @ 0.04 UNITS/MIN 6.12 mls/hr IV .[id number] [facility] Rx# :[id number] propofoL 1,000 mg In 174.955 37.62 57.670 Empty Bag 1 bag @ 15 MCG/ KG/MIN 5.307 mls/hr IV . [id number] [facility] Rx#:[id number] Tube Feeding 0 Output: Urine 355 245 25 Other: Voiding Method Indwelling Catheter Indwelling Catheter # Bowel Movements 0 ABP, PAP, CO, CI - Last Documented Arterial Blood Pressure 101/57 - Exam GENERAL EXAM: Intubated, sedated, 73-year-old male, on FiO2 at 60%, in no apparent distress. HEAD: Normocephalic. EYES: Normal reaction of pupils, equal size. NOSE: Clear with pink turbinates. THROAT: Oral endotracheal and gastric tube secured in place. No erythema or exudates. NECK: No masses, no JVD. CHEST: No chest wall deformity. Right subclavian Mediport in place. LUNGS: Equal air entry with basilar crackles. CVS: S1 and S2 normal with no audible murmur, regular rhythm. ABDOMEN: Abdominal dressing dry and intact. No hepatosplenomegaly, normal bowel sounds, no guarding or rigidity. SPINE: No scoliosis or deformity SKIN: No rashes CENTRAL NERVOUS SYSTEM: Sedated, tone is normal in all 4 extremities. EXTREMITIES: There is no peripheral edema. No clubbing, no cyanosis. Peripheral pulses are intact. - Labs CBC & Chem 7: 02/14/24 04:15 02/15/24 04:20 Labs: Abnormal Lab Results - Last 24 Hours (Table) 02/14/24 02/14/24 02/14/24 Range/Units 11:51 17:57 23:26 APTT (22.0-30.0) sec ABG pH (7.35-7.45) ABG pCO2 (35-45) mmHg ABG pO2 (83-108) mmHg ABG Total CO2 (19-24) mmol/L ABG O2 Saturation (94-97) % Sodium (137-145) mmol/L BUN (9-20) mg/dL Creatinine (0.66-1.25) mg/dL Glucose (74-99) mg/dL POC Glucose (mg/dL) 256 H 196 H 274 H (70-110) mg/dL Calcium (8.4-10.2) mg/dL Total Protein (6.3-8.2) g/dL Albumin (3.5-5.0) g/dL 02/15/24 02/15/24 02/15/24 Range/Units 04:19 04:20 04:20 APTT 57.0 H (22.0-30.0) sec ABG pH (7.35-7.45) ABG pCO2 (35-45) mmHg ABG pO2 (83-108) mmHg ABG Total CO2 (19-24) mmol/L ABG O2 Saturation (94-97) % Sodium 134 L (137-145) mmol/L BUN 45 H (9-20) mg/dL Creatinine 1.49 H (0.66-1.25) mg/dL Glucose 207 H (74-99) mg/dL POC Glucose (mg/dL) 232 H (70-110) mg/dL Calcium 7.5 L (8.4-10.2) mg/dL Total Protein 4.2 L (6.3-8.2) g/dL Albumin 2.1 L (3.5-5.0) g/dL 02/15/24 Range/Units 05:22 APTT (22.0-30.0) sec ABG pH 7.24 L (7.35-7.45) ABG pCO2 57 H (35-45) mmHg ABG pO2 56 L* (83-108) mmHg ABG Total CO2 26 H (19-24) mmol/L ABG O2 Saturation 88.8 L (94-97) % Sodium (137-145) mmol/L BUN (9-20) mg/dL Creatinine (0.66-1.25) mg/dL Glucose (74-99) mg/dL POC Glucose (mg/dL) (70-110) mg/dL Calcium (8.4-10.2) mg/dL Total Protein (6.3-8.2) g/dL Albumin (3.5-5.0) g/dL Assessment and Plan Assessment: Acute ST elevation IN, status post heart catheterization, demonstrating chronic total occlusion of the RCA, critical disease involving the left circumflex, and severe disease involving the LAD. No plans for immediate surgical intervention. Cardiology is treating the patient medically at this point Cardiac arrest requiring approximately 10 minutes of CPR with return of spontaneous circulation on 02/12/2024 Significant hypotension requiring norepinephrine, vasopressin. Elmo-Synephrine weaned off High-grade small bowel obstruction secondary to internal hernia right lower quadrant due to adhesions, status post exploratory laparotomy and lysis of adhesions. Postoperative day #3 Acute hypoxemic respiratory failure secondary to above, requiring postoperative mechanical ventilation management Acute kidney injury secondary to above Coronary artery disease, as reported above Ischemic cardiomyopathy, with an ejection fraction of 15 to 20% Hyponatremia, likely related to poor oral intake/solute intake improving Chronic obstructive pulmonary disease, appears stable History of lung cancer, reportedly currently undergoing systemic chemotherapy, last reported treatment was approximately 3 weeks ago Chronic hypoxemic respiratory failure, secondary to above, normally maintained on 4 L/min nasal cannula Former tobacco smoker Plan: The patient was seen and evaluated Chest x-ray, ABGs, labs and medications reviewed Endotracheal tube to be repositioned appropriately Currently on FiO2 of 60% and PEEP of 5 Continue with the current treatment plan DNR CODE STATUS May need to be considered for hospice/comfort care We will continue to follow I have personally seen and examined the patient, performed the documentation and the assessment and plan as written. Number of minutes spent on the visit: 15.
[2024-02-15 09:41] LABS: Anisocytosis Slight; HGB 8.2 gm/dL (13.0-17.5); Hypochromasia Marked; MCH 32.9 pg (25.0-35.0); MCHC 30.2 g/dL (31.0-37.0); Macrocytosis Marked; Mean Platelet Volume 9.4; Platelet Count 226 k/uL (150-450); RBC 2.48 m/uL (4.30-5.90); RDW 18.5 % (11.5-15.5); WBC 15.4 k/uL (3.8-10.6)
[2024-02-15 10:19] VITALS: TEMP 98.2
[2024-02-15 10:43] LABS: Band Neutrophils % 4 %; Lymphocytes # (M) 0.77 k/uL (1.0-4.8); Metamyelocytes # (M) 0.31 k/uL (0); Metamyelocytes % 2 %; Monocytes # (M) 1.23 k/uL (0-1.0); Myelocytes # (M) 0.62 k/uL (0); Myelocytes % 4 %; Neutrophils % (M) 78 %; Nucleated Red Blood Cells 0 /100 WBC (0-0); Promyelocytes # (M) 0.15 k/uL (0); Promyelocytes % 1 %; Total Cells Counted 200
[2024-02-15 10:45] LABS: Basophilic Stippling Present; Polychromasia Present
--- NOTE | 2024-02-15 12:25 | P.PN ---
Subjective Patient is seen for follow-up for acute kidney injury. Status post lysis of adhesions and repair of hernia on 02/11/2024. Status post cardiac arrest with cardioversion 02/12/2024. He remains on high-dose pressers and on the vent. Urine output is 25-30 mL/ hr Serum creatinine has decreased to 1.49 Objective - Vital Signs Vital signs: Vital Signs Temp 98.2 F 02/15/24 08:00 Pulse 85 02/15/24 12:00 Resp 16 02/15/24 12:00 BP 90/68 02/15/24 11:30 Pulse Ox 84 L 02/15/24 12:00 FiO2 50 02/15/24 12:00 Intake & Output 02/14/24 02/15/24 02/15/24 18:59 06:59 18:59 Intake Total 3268.047 1386.392 850.117 Output Total 355 245 175 Balance 2913.047 1141.392 675.117 Weight 66.8 kg 71.9 kg Intake: IV 1676 1088 643 0.9 Sodium Chloride 245 carrier Calcium Gluconate in NaCl 100 2 gm In Saline 1 100ml. bag @ 100 mls/hr IVPB ONCE ONE Rx#:[id number] Invasive Line 3 30 30 20 Invasive Line 7 10 Mvi, Adult No.4 with Vit 315 350 210 K 10 ml Trace (Conc-1Ml/ Dose) 1 ml Sodium Acetate 30 meq Potassium Chloride 20 meq Calcium Gluconate 1 gm In Amino Acids 5 %/Dextrose 20 % 1 ,000 ml @ 35 mls/hr IV . Q24H [facility] Rx#:[id number] Piperacillin-Tazobactam 3 200 10 .375 gm In Sodium Chloride 0.9% 100 ml @ 25 mls/hr IVPB Q8HR [facility] Rx# :[id number] Pressure Bag (0.9 Sodium 36 33 18 Chloride) Sodium Chloride 0.9% 1, 750 675 375 000 ml @ 75 mls/hr IV . [id number] [facility] Rx#:[id number] Intake, IV Titration 1592.047 298.392 207.117 Amount Amiodarone 360 mg In 183.887 Dextrose 5% in Water 200 ml @ 1 MG/MIN 33.333 mls/ hr IV .Q6H [facility] Rx#: [id number] Amiodarone 450 mg In 148.614 149.447 Dextrose 5% in Water 250 ml @ 0.5 MG/MIN 16.667 mls/hr IV .Q15H [facility] Rx#: [id number] Heparin Sod,Pork in 0.45% 187.455 NaCl 25,000 unit In 0.45 % NaCl 1 250ml.bag @ 12 UNITS/KG/HR 7.254 mls/hr IV .Q24H [facility] Rx#: [id number] Mvi, Adult No.4 with Vit 691.5 K 10 ml Trace (Conc-1Ml/ Dose) 1 ml Sodium Acetate 30 meq Potassium Chloride 20 meq Calcium Gluconate 1 gm In Amino Acids 5 %/Dextrose 20 % 1 ,000 ml @ 30 mls/hr IV . Q24H [facility] Rx#:[id number] Norepinephrine 32 mg In 303.990 61.158 Sodium Chloride 0.9% 218 ml @ 0.5 MCG/KG/MIN 14. 168 mls/hr IV .[id number] [facility] Rx#:[id number] Vasopressin 20 unit In 50.260 51 Sodium Chloride 0.9% 50 ml @ 0.04 UNITS/MIN 6.12 mls/hr IV .Q8H20M [facility] Rx# :[id number] propofoL 1,000 mg In 174.955 37.62 57.670 Empty Bag 1 bag @ 15 MCG/ KG/MIN 5.307 mls/hr IV . [id number] [facility] Rx#:[id number] Tube Feeding 0 Output: Urine 355 245 175 Other: Voiding Method Indwelling Catheter Indwelling Catheter Indwelling Catheter # Bowel Movements 0 ABP, PAP, CO, CI - Last Documented Arterial Blood Pressure 97/55 - Exam Vital signs are stable. General: Patient is intubated and sedated. Lungs: Bilateral breath sounds present. Heart: Rate and rhythm are regular. Extremities: 1+ edema present. - Labs CBC & Chem 7: 02/15/24 04:20 02/15/24 09:20 Labs: Abnormal Lab Results - Last 24 Hours (Table) 02/14/24 02/14/24 02/15/24 Range/Units 17:57 23:26 04:19 WBC (3.8-10.6) k/uL RBC (4.30-5.90) m/uL Hgb (13.0-17.5) gm/dL Hct (39.0-53.0) % MCV (80.0-100.0) fL MCHC (31.0-37.0) g/dL RDW (11.5-15.5) % Neutrophils # (Manual) (1.3-7.7) k/uL Lymphocytes # (Manual) (1.0-4.8) k/uL Monocytes # (Manual) (0-1.0) k/uL Metamyelocytes # (Man) (0) k/uL Myelocytes # (Manual) (0) k/uL Promyelocytes # (Man) (0) k/uL Macrocytosis APTT (22.0-30.0) sec ABG pH (7.35-7.45) ABG pCO2 (35-45) mmHg ABG pO2 (83-108) mmHg ABG Total CO2 (19-24) mmol/L ABG O2 Saturation (94-97) % Sodium (137-145) mmol/L BUN (9-20) mg/dL Creatinine (0.66-1.25) mg/dL Glucose (74-99) mg/dL POC Glucose (mg/dL) 196 H 274 H 232 H (70-110) mg/dL Calcium (8.4-10.2) mg/dL Total Protein (6.3-8.2) g/dL Albumin (3.5-5.0) g/dL 02/15/24 02/15/24 02/15/24 Range/Units 04:20 04:20 04:20 WBC 15.4 H (3.8-10.6) k/uL RBC 2.48 L (4.30-5.90) m/uL Hgb 8.2 L (13.0-17.5) gm/dL Hct 27.0 L (39.0-53.0) % MCV 109.0 H (80.0-100.0) fL MCHC 30.2 L (31.0-37.0) g/dL RDW 18.5 H (11.5-15.5) % Neutrophils # (Manual) 12.60 H (1.3-7.7) k/uL Lymphocytes # (Manual) 0.77 L (1.0-4.8) k/uL Monocytes # (Manual) 1.23 H (0-1.0) k/uL Metamyelocytes # (Man) 0.31 H (0) k/uL Myelocytes # (Manual) 0.62 H (0) k/uL Promyelocytes # (Man) 0.15 H (0) k/uL Macrocytosis Marked A APTT 57.0 H (22.0-30.0) sec ABG pH (7.35-7.45) ABG pCO2 (35-45) mmHg ABG pO2 (83-108) mmHg ABG Total CO2 (19-24) mmol/L ABG O2 Saturation (94-97) % Sodium 134 L (137-145) mmol/L BUN 45 H (9-20) mg/dL Creatinine 1.49 H (0.66-1.25) mg/dL Glucose 207 H (74-99) mg/dL POC Glucose (mg/dL) (70-110) mg/dL Calcium 7.5 L (8.4-10.2) mg/dL Total Protein 4.2 L (6.3-8.2) g/dL Albumin 2.1 L (3.5-5.0) g/dL 02/15/24 Range/Units 05:22 WBC (3.8-10.6) k/uL RBC (4.30-5.90) m/uL Hgb (13.0-17.5) gm/dL Hct (39.0-53.0) % MCV (80.0-100.0) fL MCHC (31.0-37.0) g/dL RDW (11.5-15.5) % Neutrophils # (Manual) (1.3-7.7) k/uL Lymphocytes # (Manual) (1.0-4.8) k/uL Monocytes # (Manual) (0-1.0) k/uL Metamyelocytes # (Man) (0) k/uL Myelocytes # (Manual) (0) k/uL Promyelocytes # (Man) (0) k/uL Macrocytosis APTT (22.0-30.0) sec ABG pH 7.24 L (7.35-7.45) ABG pCO2 57 H (35-45) mmHg ABG pO2 56 L* (83-108) mmHg ABG Total CO2 26 H (19-24) mmol/L ABG O2 Saturation 88.8 L (94-97) % Sodium (137-145) mmol/L BUN (9-20) mg/dL Creatinine (0.66-1.25) mg/dL Glucose (74-99) mg/dL POC Glucose (mg/dL) (70-110) mg/dL Calcium (8.4-10.2) mg/dL Total Protein (6.3-8.2) g/dL Albumin (3.5-5.0) g/dL Microbiology - Last 24 Hours (Table) 02/14/24 17:00 Gram Stain - Preliminary Sputum Assessment and Plan Assessment: 1. Acute kidney injury. Secondary to ATN from hypotension. No obstruction noted on CT. Status post cardiac catheterization 02/10/2024. 2. Hyperkalemia. Associated with acute kidney injury. improved. 3. Hypovolemic hyponatremia. Maintained on normal saline. Improving. 4. NSTEMI. 5. Cardiomyopathy. EF 15-20% on echo 02/10/2024. 6. Small bowel obstruction. Being followed by surgery. Currently with NG tube . Plan: consider decreasing IV fluids if blood pressure stabilizes. Patient remains on high-dose off pressors. Overall prognosis is guarded.
[2024-02-15 12:36] VITALS: BP 88/64
--- NOTE | 2024-02-15 12:40 | P.PN ---
Subjective Progress Note Date: 02/15/24 Subjective Patient remains intubated and sedated. Patient is on multiple pressors. He has a poor prognosis. Per nurse family is expected to come in today. Physical exam General examination - Alert and Oriented 3 in NAD Heart - + S1S2 no murmurs Lungs - Clear to auscultation Abdomen soft NT ND +ve BS Extremities - No edema [employer] - Moving all 4 extremities spontaneously Psych - Calm and cooperative Assessment and plan SBO secondary to internal hernia right lower quadrant due to adhesions Status post ex lap with lysis of adhesions 02/10. On Zosyn. Continue TPN for nutritional support STEMI Ischemic cardiomyopathy with EF 15 to 20% Atrial fibrillation with rapid ventricular response Status post heart catheterization, demonstrating chronic total occlusion of the RCA, critical disease involving the left circumflex, and severe disease involving the LAD. No plans for immediate surgical intervention. Cardiology is treating the patient medically at this point. Aspirin, statin and metoprolol Started on amiodarone drip On IV heparin Severe cardiogenic and septic shock requiring norepinephrine, vasopressin and Elmo-Synephrine Acute kidney injury Likely secondary to hemodynamic instability. Nephrology following. Monitor urine output. Creatinine this morning is 1.49 which is improving Cardiac arrest requiring approximately 10 minutes of CPR with return of spontaneous circulation on 02/12/2024. Acute hypoxemic respiratory failure secondary to above, requiring postoperative mechanical ventilation management Hyponatremia, likely related to poor oral intake/solute intake improving IV fluids, monitor Chronic obstructive pulmonary disease, appears stable History of lung cancer, reportedly currently undergoing systemic chemotherapy, last reported treatment was approximately 3 weeks ago Chronic hypoxemic respiratory failure, secondary to above, normally maintained on 4 L/min nasal cannula Former tobacco smoker VTE prophylaxis: Subcu heparin GI prophylaxis: PPI DNR CODE STATUS We will continue to follow Patient's prognosis is guarded. Family expected to come in today and will discuss goals of care. Objective - Vital Signs Vital signs: Vital Signs Temp 98.2 F 02/15/24 08:00 Pulse 86 02/15/24 12:30 Resp 16 02/15/24 12:30 BP 88/64 02/15/24 12:30 Pulse Ox 84 L 02/15/24 12:30 FiO2 100 02/15/24 12:33 Intake & Output 02/14/24 02/15/24 02/15/24 18:59 06:59 18:59 Intake Total 3268.047 1386.392 850.117 Output Total 355 245 175 Balance 2913.047 1141.392 675.117 Weight 66.8 kg 71.9 kg Intake: IV 1676 1088 643 0.9 Sodium Chloride 245 carrier Calcium Gluconate in NaCl 100 2 gm In Saline 1 100ml. bag @ 100 mls/hr IVPB ONCE [facility] Rx#:[id number] Invasive Line 3 30 30 20 Invasive Line 7 10 Mvi, Adult No.4 with Vit 315 350 210 K 10 ml Trace (Conc-1Ml/ Dose) 1 ml Sodium Acetate 30 meq Potassium Chloride 20 meq Calcium Gluconate 1 gm In Amino Acids 5 %/Dextrose 20 % 1 ,000 ml @ 35 mls/hr IV . Q24H [facility] Rx#:[id number] Piperacillin-Tazobactam 3 200 10 .375 gm In Sodium Chloride 0.9% 100 ml @ 25 mls/hr IVPB Q8HR [facility] Rx# :[id number] Pressure Bag (0.9 Sodium 36 33 18 Chloride) Sodium Chloride 0.9% 1, 750 675 375 000 ml @ 75 mls/hr IV . [id number] [facility] Rx#:[id number] Intake, IV Titration 1592.047 298.392 207.117 Amount Amiodarone 360 mg In 183.887 Dextrose 5% in Water 200 ml @ 1 MG/MIN 33.333 mls/ hr IV .Q6H [facility] Rx#: [id number] Amiodarone 450 mg In 148.614 149.447 Dextrose 5% in Water 250 ml @ 0.5 MG/MIN 16.667 mls/hr IV .Q15H [facility] Rx#: [id number] Heparin Sod,Pork in 0.45% 187.455 NaCl 25,000 unit In 0.45 % NaCl 1 250ml.bag @ 12 UNITS/KG/HR 7.254 mls/hr IV .Q24H [facility] Rx#: [id number] Mvi, Adult No.4 with Vit 691.5 K 10 ml Trace (Conc-1Ml/ Dose) 1 ml Sodium Acetate 30 meq Potassium Chloride 20 meq Calcium Gluconate 1 gm In Amino Acids 5 %/Dextrose 20 % 1 ,000 ml @ 30 mls/hr IV . Q24H [facility] Rx#:[id number] Norepinephrine 32 mg In 303.990 61.158 Sodium Chloride 0.9% 218 ml @ 0.5 MCG/KG/MIN 14. 168 mls/hr IV .[id number] [facility] Rx#:[id number] Vasopressin 20 unit In 50.260 51 Sodium Chloride 0.9% 50 ml @ 0.04 UNITS/MIN 6.12 mls/hr IV .Q8H20M [facility] Rx# :[id number] propofoL 1,000 mg In 174.955 37.62 57.670 Empty Bag 1 bag @ 15 MCG/ KG/MIN 5.307 mls/hr IV . [id number] [facility] Rx#:[id number] Tube Feeding 0 Output: Urine 355 245 175 Other: Voiding Method Indwelling Catheter Indwelling Catheter Indwelling Catheter # Bowel Movements 0 ABP, PAP, CO, CI - Last Documented Arterial Blood Pressure 89/52 - Labs CBC & Chem 7: 02/15/24 04:20 02/15/24 09:20 Labs: Abnormal Lab Results - Last 24 Hours (Table) 02/14/24 02/14/24 02/15/24 Range/Units 17:57 23:26 04:19 WBC (3.8-10.6) k/uL RBC (4.30-5.90) m/uL Hgb (13.0-17.5) gm/dL Hct (39.0-53.0) % MCV (80.0-100.0) fL MCHC (31.0-37.0) g/dL RDW (11.5-15.5) % Neutrophils # (Manual) (1.3-7.7) k/uL Lymphocytes # (Manual) (1.0-4.8) k/uL Monocytes # (Manual) (0-1.0) k/uL Metamyelocytes # (Man) (0) k/uL Myelocytes # (Manual) (0) k/uL Promyelocytes # (Man) (0) k/uL Macrocytosis APTT (22.0-30.0) sec ABG pH (7.35-7.45) ABG pCO2 (35-45) mmHg ABG pO2 (83-108) mmHg ABG Total CO2 (19-24) mmol/L ABG O2 Saturation (94-97) % Sodium (137-145) mmol/L BUN (9-20) mg/dL Creatinine (0.66-1.25) mg/dL Glucose (74-99) mg/dL POC Glucose (mg/dL) 196 H 274 H 232 H (70-110) mg/dL Calcium (8.4-10.2) mg/dL Total Protein (6.3-8.2) g/dL Albumin (3.5-5.0) g/dL 02/15/24 02/15/24 02/15/24 Range/Units 04:20 04:20 04:20 WBC 15.4 H (3.8-10.6) k/uL RBC 2.48 L (4.30-5.90) m/uL Hgb 8.2 L (13.0-17.5) gm/dL Hct 27.0 L (39.0-53.0) % MCV 109.0 H (80.0-100.0) fL MCHC 30.2 L (31.0-37.0) g/dL RDW 18.5 H (11.5-15.5) % Neutrophils # (Manual) 12.60 H (1.3-7.7) k/uL Lymphocytes # (Manual) 0.77 L (1.0-4.8) k/uL Monocytes # (Manual) 1.23 H (0-1.0) k/uL Metamyelocytes # (Man) 0.31 H (0) k/uL Myelocytes # (Manual) 0.62 H (0) k/uL Promyelocytes # (Man) 0.15 H (0) k/uL Macrocytosis Marked A APTT 57.0 H (22.0-30.0) sec ABG pH (7.35-7.45) ABG pCO2 (35-45) mmHg ABG pO2 (83-108) mmHg ABG Total CO2 (19-24) mmol/L ABG O2 Saturation (94-97) % Sodium 134 L (137-145) mmol/L BUN 45 H (9-20) mg/dL Creatinine 1.49 H (0.66-1.25) mg/dL Glucose 207 H (74-99) mg/dL POC Glucose (mg/dL) (70-110) mg/dL Calcium 7.5 L (8.4-10.2) mg/dL Total Protein 4.2 L (6.3-8.2) g/dL Albumin 2.1 L (3.5-5.0) g/dL 02/15/24 Range/Units 05:22 WBC (3.8-10.6) k/uL RBC (4.30-5.90) m/uL Hgb (13.0-17.5) gm/dL Hct (39.0-53.0) % MCV (80.0-100.0) fL MCHC (31.0-37.0) g/dL RDW (11.5-15.5) % Neutrophils # (Manual) (1.3-7.7) k/uL Lymphocytes # (Manual) (1.0-4.8) k/uL Monocytes # (Manual) (0-1.0) k/uL Metamyelocytes # (Man) (0) k/uL Myelocytes # (Manual) (0) k/uL Promyelocytes # (Man) (0) k/uL Macrocytosis APTT (22.0-30.0) sec ABG pH 7.24 L (7.35-7.45) ABG pCO2 57 H (35-45) mmHg ABG pO2 56 L* (83-108) mmHg ABG Total CO2 26 H (19-24) mmol/L ABG O2 Saturation 88.8 L (94-97) % Sodium (137-145) mmol/L BUN (9-20) mg/dL Creatinine (0.66-1.25) mg/dL Glucose (74-99) mg/dL POC Glucose (mg/dL) (70-110) mg/dL Calcium (8.4-10.2) mg/dL Total Protein (6.3-8.2) g/dL Albumin (3.5-5.0) g/dL Microbiology - Last 24 Hours (Table) 02/14/24 17:00 Gram Stain - Preliminary Sputum
[2024-02-15 12:43] LABS: Glucose,Whole Blood 225 mg/dL (70-110)
[2024-02-15] MEDS ORDERED: MORPHINE SULFATE 2 MG/ML SYRINGE IV PRN (16:55)
[2024-02-15] MEDS: LORazepam 2 MG/ML INJ IV PRN (17:21)
[2024-02-15] MEDS: MORPHINE SULFATE 4 MG/ML SYRINGE IV PRN (17:21)
[2024-02-15] MEDS: SCOPOLAMINE 1 MG/72 HR PATCH TRANSDERM SCH (17:27)
[2024-02-15] MEDS: MORPHINE SULFATE (100 MG/2 ML) 100 MG in SODIUM CHLORIDE 0.9% 100 ML IV SCH (17:28)
[2024-02-15] MEDS: ATROPINE OPHTH SOLN 1% 5ML BTL SUBLINGUAL PRN (17:29)
[2024-02-15 20:35] VITALS: PULSE 0; RESP 0
--- NOTE | 2024-02-15 22:27 | P.PN ---
Subjective Patient seen and evaluated at bedside. Patient with , no complaints per nursing staff. Objective - Vital Signs Vital signs: Vital Signs Temp 98.2 F 02/15/24 08:00 Pulse 0 L 02/15/24 18:42 Resp 0 L 02/15/24 18:42 BP 88/64 02/15/24 12:30 Pulse Ox 100 02/15/24 18:00 FiO2 100 02/15/24 17:00 Intake & Output 02/15/24 02/15/24 02/16/24 06:59 18:59 06:59 Intake Total 4306.953 6081.995 Output Total 245 260 Balance 6889.601 4056.995 Weight 71.9 kg Intake: IV 1088 1293 Invasive Line 3 30 30 Invasive Line 7 20 Mvi, Adult No.4 with Vit 350 350 K 10 ml Trace (Conc-1Ml/ Dose) 1 ml Sodium Acetate 30 meq Potassium Chloride 20 meq Calcium Gluconate 1 gm In Amino Acids 5 %/Dextrose 20 % 1 ,000 ml @ 35 mls/hr IV . Q24H [facility] Rx#:[id number] Piperacillin-Tazobactam 3 110 .375 gm In Sodium Chloride 0.9% 100 ml @ 25 mls/hr IVPB Q8HR [facility] Rx# :[id number] Pressure Bag (0.9 Sodium 33 33 Chloride) Sodium Chloride 0.9% 1, 675 750 000 ml @ 75 mls/hr IV . [id number] [facility] Rx#:[id number] Intake, IV Titration 330.952 3430.995 Amount Amiodarone 450 mg In 148.614 149.447 Dextrose 5% in Water 250 ml @ 0.5 MG/MIN 16.667 mls/hr IV .Q15H [facility] Rx#: [id number] Amiodarone 450 mg In 153.614 Dextrose 5% in Water 250 ml @ 0.5 MG/MIN 16.667 mls/hr IV .Q15H [facility] Rx#: [id number] Heparin Sod,Pork in 0.45% 219.050 NaCl 25,000 unit In 0.45 % NaCl 1 250ml.bag @ 12 UNITS/KG/HR 7.254 mls/hr IV .Q24H [facility] Rx#: [id number] Morphine Sulfate (100 mg/ 8.976 2 ml) 100 mg In Sodium Chloride 0.9% 100 ml @ 2 MG/HR 2.04 mls/hr IV . Q24H [facility] Rx#:[id number] Mvi, Adult No.4 with Vit 880.25 K 10 ml Trace (Conc-1Ml/ Dose) 1 ml Sodium Acetate 46 meq Potassium Chloride 24 meq Calcium Gluconate 1 gm In Amino Acids 5 %/Dextrose 20 % 1 ,000 ml @ 35 mls/hr IV . Q24H [facility] Rx#:[id number] Norepinephrine 32 mg In 61.158 224.954 Sodium Chloride 0.9% 218 ml @ 0.5 MCG/KG/MIN 14. 168 mls/hr IV .[id number] [facility] Rx#:[id number] Vasopressin 20 unit In 51 57.070 Sodium Chloride 0.9% 50 ml @ 0.04 UNITS/MIN 6.12 mls/hr IV .Q8H20M [facility] Rx# :[id number] propofoL 1,000 mg In 37.62 176.634 Empty Bag 1 bag @ 15 MCG/ KG/MIN 5.307 mls/hr IV . [id number] [facility] Rx#:[id number] Output: Urine 245 260 Other: Voiding Method Indwelling Catheter Indwelling Catheter ABP, PAP, CO, CI - Last Documented Arterial Blood Pressure 62/37 - Exam gen: nad cv: rrr pul: non labored breathing abd: soft, distended, no guarding or rebound tenderness - Labs CBC & Chem 7: 02/15/24 04:20 02/15/24 09:20 Labs: Abnormal Lab Results - Last 24 Hours (Table) 02/14/24 02/15/24 02/15/24 Range/Units 23:26 04:19 04:20 WBC (3.8-10.6) k/uL RBC (4.30-5.90) m/uL Hgb (13.0-17.5) gm/dL Hct (39.0-53.0) % MCV (80.0-100.0) fL MCHC (31.0-37.0) g/dL RDW (11.5-15.5) % Neutrophils # (Manual) (1.3-7.7) k/uL Lymphocytes # (Manual) (1.0-4.8) k/uL Monocytes # (Manual) (0-1.0) k/uL Metamyelocytes # (Man) (0) k/uL Myelocytes # (Manual) (0) k/uL Promyelocytes # (Man) (0) k/uL Macrocytosis APTT (22.0-30.0) sec ABG pH (7.35-7.45) ABG pCO2 (35-45) mmHg ABG pO2 (83-108) mmHg ABG Total CO2 (19-24) mmol/L ABG O2 Saturation (94-97) % Sodium 134 L (137-145) mmol/L BUN 45 H (9-20) mg/dL Creatinine 1.49 H (0.66-1.25) mg/dL Glucose 207 H (74-99) mg/dL POC Glucose (mg/dL) 274 H 232 H (70-110) mg/dL Calcium 7.5 L (8.4-10.2) mg/dL Total Protein 4.2 L (6.3-8.2) g/dL Albumin 2.1 L (3.5-5.0) g/dL 02/15/24 02/15/24 02/15/24 Range/Units 04:20 04:20 05:22 WBC 15.4 H (3.8-10.6) k/uL RBC 2.48 L (4.30-5.90) m/uL Hgb 8.2 L (13.0-17.5) gm/dL Hct 27.0 L (39.0-53.0) % MCV 109.0 H (80.0-100.0) fL MCHC 30.2 L (31.0-37.0) g/dL RDW 18.5 H (11.5-15.5) % Neutrophils # (Manual) 12.60 H (1.3-7.7) k/uL Lymphocytes # (Manual) 0.77 L (1.0-4.8) k/uL Monocytes # (Manual) 1.23 H (0-1.0) k/uL Metamyelocytes # (Man) 0.31 H (0) k/uL Myelocytes # (Manual) 0.62 H (0) k/uL Promyelocytes # (Man) 0.15 H (0) k/uL Macrocytosis Marked A APTT 57.0 H (22.0-30.0) sec ABG pH 7.24 L (7.35-7.45) ABG pCO2 57 H (35-45) mmHg ABG pO2 56 L* (83-108) mmHg ABG Total CO2 26 H (19-24) mmol/L ABG O2 Saturation 88.8 L (94-97) % Sodium (137-145) mmol/L BUN (9-20) mg/dL Creatinine (0.66-1.25) mg/dL Glucose (74-99) mg/dL POC Glucose (mg/dL) (70-110) mg/dL Calcium (8.4-10.2) mg/dL Total Protein (6.3-8.2) g/dL Albumin (3.5-5.0) g/dL 02/15/24 Range/Units 12:41 WBC (3.8-10.6) k/uL RBC (4.30-5.90) m/uL Hgb (13.0-17.5) gm/dL Hct (39.0-53.0) % MCV (80.0-100.0) fL MCHC (31.0-37.0) g/dL RDW (11.5-15.5) % Neutrophils # (Manual) (1.3-7.7) k/uL Lymphocytes # (Manual) (1.0-4.8) k/uL Monocytes # (Manual) (0-1.0) k/uL Metamyelocytes # (Man) (0) k/uL Myelocytes # (Manual) (0) k/uL Promyelocytes # (Man) (0) k/uL Macrocytosis APTT (22.0-30.0) sec ABG pH (7.35-7.45) ABG pCO2 (35-45) mmHg ABG pO2 (83-108) mmHg ABG Total CO2 (19-24) mmol/L ABG O2 Saturation (94-97) % Sodium (137-145) mmol/L BUN (9-20) mg/dL Creatinine (0.66-1.25) mg/dL Glucose (74-99) mg/dL POC Glucose (mg/dL) 225 H (70-110) mg/dL Calcium (8.4-10.2) mg/dL Total Protein (6.3-8.2) g/dL Albumin (3.5-5.0) g/dL Microbiology - Last 24 Hours (Table) 02/10/24 14:45 Blood Culture - Final Blood 02/10/24 14:30 Blood Culture - Final Blood 02/14/24 17:00 Gram Stain - Preliminary Sputum Assessment and Plan Assessment: 73 yo male s/p ex lap 08/23 sbo - considering comfort care -no intervention at this time Time with Patient: Less than 30
--- NOTE | 2024-02-16 14:27 | P.DS ---
Providers Date of admission: 02/10/24 14:42 Attending physician: Valdemar Ho MD Consults: 02/10/24 14:14 Consult Physician Stat Consulting Provider: David Leon Consult Reason/Comments: abnormal ekg Do you want consulting provider notified?: Already Contacted 02/10/24 14:26 Consult Physician Stat Consulting Provider: Logan Vu Consult Reason/Comments: bowel obstruction Do you want consulting provider notified?: Yes 02/10/24 14:41 Consult Physician Stat Consulting Provider: Brando Bhardwaj Consult Reason/Comments: icu patient Do you want consulting provider notified?: Already Contacted 02/10/24 16:58 Consult Physician Routine Consulting Provider: Cecile Lu Consult Reason/Comments: RYAN with anuria Do you want consulting provider notified?: Yes Primary care physician: [facility] Course: Hospital course 73-year-old male with medical history of lung cancer with Mediport currently on chemotherapy, COPD with chronic respiratory failure requiring 3 L of nasal cannula, severe protein calorie malnutrition with cachexia, presented for evaluation of abdominal pain. In the ED CT abdomen pelvis showed a small bowel obstruction. Patient also was found to have a ST elevation GA. Patient had a heart catheterization done that showed chronic total occlusion of the RCA and critical disease involving the left circumflex and severe disease involving the LAD. Due to patient's poor prognosis cardiology did not recommend immediate surgical intervention and recommended to treat the patient medically. Patient was also seen by general surgery and had a exploratory laparotomy with lysis of adhesions on 02/11/2024. The next day after surgery patient had a cardiac arrest and had to be intubated after achieving ROSC. Patient was on multiple pressors. Limited echocardiogram showed severe LV systolic dysfunction. Goals of care were discussed with the family who made him comfort care. Patient then . Cause of is cardiogenic shock secondary to ST elevation GA. Discharge diagnoses ST elevation GA Ischemic cardiomyopathy with an EF of 15 to 20% Atrial fibrillation with rapid ventricular response Cardiogenic shock Acute kidney injury Cardiac arrest on 02/12/2024 Hyponatremia Chronic obstructive pulmonary disease History of lung cancer on active chemotherapy Ventilator dependent respiratory failure Acute on chronic hypoxic respiratory failure Former tobacco smoker Physical exam Patient was not seen at the time of his passing so no physical exam done I spent a total of 10 minutes with this discharge Patient Condition at Discharge: Undetermined Plan - Discharge Summary Discharge Rx Participant: No New Discharge Prescriptions: No Action Furosemide [Lasix] 20 mg PO BID Gabapentin 600 mg PO TID Fluticasone/Umeclidin/Vilanter [Trelegy Ellipta 200-62.5-25] 1 puff INHALATION RT-DAILY Pantoprazole [Protonix] 40 mg PO DAILY Sertraline [Zoloft] 50 mg PO DAILY QUEtiapine [SEROquel] 25 mg PO HS HYDROcodone/APAP 7.5-325MG [Milo 7.5-325] 1 tab PO Q6HR PRN PRN Reason: Pain Albuterol Sulfate [Albuterol Sulfate Hfa] 1 puff PO RT-Q4H PRN PRN Reason: Shortness Of Breath Discharge Medication List Albuterol Sulfate [Albuterol Sulfate Hfa] 1 puff PO RT-Q4H PRN 02/10/24 [History] Fluticasone/Umeclidin/Vilanter [Trelegy Ellipta 200-62.5-25] 1 puff INHALATION RT-DAILY 02/10/24 [History] Furosemide [Lasix] 20 mg PO BID 02/10/24 [History] Gabapentin 600 mg PO TID 02/10/24 [History] HYDROcodone/APAP 7.5-325MG [Milo 7.5-325] 1 tab PO Q6HR PRN 02/10/24 [History] Pantoprazole [Protonix] 40 mg PO DAILY 02/10/24 [History] QUEtiapine [SEROquel] 25 mg PO HS 02/10/24 [History] Sertraline [Zoloft] 50 mg PO DAILY 02/10/24 [History] Follow up Appointment(s)/Referral(s): Betito Zhang DO [Primary Care Provider] - 1-2 days Discharge Disposition: - Preliminary Cause of Preliminary Cause of : Cardiogenic shock secondary to ST elevation GA
== END 2024-02-15 22:20 | disposition expired | DRG 335 ==
LOC: EC 12:47 → 2SICU 14:42 → 3SCARD 19:02 → 2SICU 02-11 16:07
PROVIDERS: ADMIT Student in an Organized Health Care Education/Training Program; ATTEND Student in an Organized Health Care Education/Training Program
PROC: 0D9670Z Drainage of Stomach with Drainage Device, Via Natural or Artificial Opening (ICD-10-PCS; 2024-02-10)
PROC: B2111ZZ Fluoroscopy of Multiple Coronary Arteries using Low Osmolar Contrast (ICD-10-PCS; 2024-02-10)
PROC: 4A023N7 Measurement of Cardiac Sampling and Pressure, Left Heart, Percutaneous Approach (ICD-10-PCS; 2024-02-10)
PROC: 5A1955Z Respiratory Ventilation, Greater than 96 Consecutive Hours (ICD-10-PCS; 2024-02-11)
PROC: 0BH17EZ Insertion of Endotracheal Airway into Trachea, Via Natural or Artificial Opening (ICD-10-PCS; 2024-02-11)
PROC: 0DN80ZZ Release Small Intestine, Open Approach (ICD-10-PCS; principal; 2024-02-11 13:10)
DX: K56.50 Intestinal adhesions [bands], unspecified as to partial versus complete obstruction (principal); A41.9 Sepsis, unspecified organism; I21.4 Non-ST elevation (NSTEMI) myocardial infarction; R65.21 Severe sepsis with septic shock; N17.0 Acute kidney failure with tubular necrosis; J96.21 Acute and chronic respiratory failure with hypoxia; E43 Unspecified severe protein-calorie malnutrition; C34.90 Malignant neoplasm of unspecified part of unspecified bronchus or lung; E87.1 Hypo-osmolality and hyponatremia; I47.10 Supraventricular tachycardia, unspecified; I97.121 Postprocedural cardiac arrest following other surgery; J90 Pleural effusion, not elsewhere classified; R64 Cachexia; E87.4 Mixed disorder of acid-base balance; G89.29 Other chronic pain; R57.0 Cardiogenic shock; I46.2 Cardiac arrest due to underlying cardiac condition; J44.9 Chronic obstructive pulmonary disease, unspecified; Z99.81 Dependence on supplemental oxygen; E88.09 Other disorders of plasma-protein metabolism, not elsewhere classified; D64.9 Anemia, unspecified; I25.10 Atherosclerotic heart disease of native coronary artery without angina pectoris; Z51.5 Encounter for palliative care; Z66 Do not resuscitate; Z68.24 Body mass index [BMI] 24.0-24.9, adult; D75.839 Thrombocytosis, unspecified; E86.1 Hypovolemia; E87.5 Hyperkalemia; F17.200 Nicotine dependence, unspecified, uncomplicated; I25.5 Ischemic cardiomyopathy; I48.91 Unspecified atrial fibrillation; K31.89 Other diseases of stomach and duodenum; Z79.899 Other long term (current) drug therapy; Z92.21 Personal history of antineoplastic chemotherapy; Z95.5 Presence of coronary angioplasty implant and graft
CPT/HCPCS: 36415; 71045; 74177; 80048; 80053; 81001; 82330; 82533; 82565; 82805; 83605; 83690; 83735; 84100; 84132; 84145; 84295; 84478; 84484; 84520; 85025; 85027; 85610; 85730; 87040; 87070; 87205; 93005; 93308; 93458; 94002; 94003; 94640; 94760; 96361; 96365; 96366; 96375; 99291